=== PATIENT | female | born 1980 | race Caucasian/White ===

== ENCOUNTER 2024-09-14 10:16 | Outpatient (AMB) | payer OTHER, SELFPAY ==
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
[2024-09-14 10:42] VITALS: BP 139/80; PULSE 69; RESP 14; TEMP 36.3; O2SAT 99; BMI 32.1
== END 2024-09-14 11:12 | disposition home or self-care (01) ==
PROVIDERS: PCP Physician Assistant Medical; Visit Provider Physician Assistant
DX: R03.0 Elevated blood-pressure reading, without diagnosis of hypertension (principal); N63.12 Unspecified lump in the right breast, upper inner quadrant; J45.20 Mild intermittent asthma, uncomplicated

== ENCOUNTER → 2024-09-14 10:16 | Outpatient (BNVA) | payer OTHER, SELFPAY | PROVIDERS: PCP Physician Assistant Medical; Visit Provider Physician Assistant | DX: N63.12 Unspecified lump in the right breast, upper inner quadrant (principal); J45.20 Mild intermittent asthma, uncomplicated; R03.0 Elevated blood-pressure reading, without diagnosis of hypertension | CPT/HCPCS: 96127 ==

== ENCOUNTER 2024-09-19 07:31 | Outpatient (REF) | payer OTHER, SELFPAY ==
[2024-09-19 11:36] LABS: MANUAL DIFF FLAG NO
[2024-09-19 12:00] LABS: Basophils Absolute Auto 0.1 X10*3/uL (0.0-0.2); Basophils Percent Auto 0.8 % (0-2); Eosinophils Absolute Auto 0.6 X10*3/uL (0.0-0.4); Eosinophils Percent Auto 7.7 % (0-4); Hematocrit 37.6 % (37.0-47.0); Hemoglobin 12.6 g/dl (12.0-16.0); Imm Gran Abs Auto 0.04 X10*3/uL (0.00-0.03); Imm Gran Pct Auto 0.6 % (0.0-0.4); Lymphocytes Absolute Auto 1.6 X10*3/uL (1.2-4.9); Lymphocytes Percent Auto 21.9 % (20-40); Mean Corpuscular HGB Conc 33.5 g/dl (31.0-35.0); Mean Corpuscular Hemoglobin 31.4 pg (27.0-33.0); Mean Corpuscular Volume 93.8 fL (80.0-98.0); Monocytes Absolute Auto 0.5 X10*3/uL (0.1-1.2); Monocytes Percent Auto 7.5 % (2-11); Neutrophils Absolute Auto 4.5 x10*3/uL (2.0-8.3); Neutrophils Percent Auto 61.5 % (45-73); Platelet Count 367 X10*3/uL (160-400); Red Blood Count 4.01 X10*6/uL (4.20-5.50); Red Cell Distribution Width 12.9 % (11.0-16.0); White Blood Count 7.2 X10*3/uL (4.8-10.8)
[2024-09-19 12:40] LABS: Alanine Aminotransferase 29 U/L (0-31); Albumin Level 4.1 g/dL (3.5-5.0); Alkaline Phosphatase 55 U/L (39-117); Anion Gap 13 (12-20); Aspartate Amino Transferase 24 U/L (5-31); Bilirubin Total 0.4 mg/dL (0.0-1.0); Blood Urea Nitrogen 9 mg/dL (9-16); Calcium 9.4 mg/dL (8.4-10.2); Carbon Dioxide 28 mmol/L (22-29); Chloride 104 mmol/L (96-108); Cholesterol 234 mg/dL (<200); Estimated Glomerular Filt Rate > 60; Glucose Fasting 89 mg/dL (60-99); HDL Cholesterol 64 mg/dL (>40); LDL Cholesterol Calculated 148 mg/dL (<100); Potassium 4.1 mmol/L (3.3-5.1); Sodium 141 mmol/L (135-145); TSH reflex Free T4 2.35 uIU/mL (0.32-4.0); Total Protein 7.3 g/dL (6.5-8.0); Triglycerides 112 mg/dL (<150)
[2024-09-19 12:45] LABS: Folate 8.4 ng/mL (> or = 4.0); Vitamin B12 657 pg/mL (200-900)
== END 2024-09-19 07:32 | disposition home or self-care (01) ==
LOC: HO.WFDLDS 07:31
PROVIDERS: Visit Provider Physician Assistant
DX: R03.0 Elevated blood-pressure reading, without diagnosis of hypertension (principal); Z13.220 Encounter for screening for lipoid disorders; N63.10 Unspecified lump in the right breast, unspecified quadrant
CPT/HCPCS: 36415; 80053; 80061; 82607; 82746; 84443; 85025

== ENCOUNTER 2024-09-25 09:07 | Outpatient (REF) | payer OTHER, SELFPAY ==
--- NOTE | ~2024-09-25 | MM_ITS ---
EXAMINATION: MM DIAGNOSTIC DIGITAL BREAST TOMOSYNTHESIS, BILATERAL Limited right breast ultrasound. CLINICAL INFORMATION: Right breast palpable lump. COMPARISON: Mammography: Comparison is made with relevant prior exams. TECHNIQUE: Digital breast mammography with tomosynthesis is performed in both the craniocaudal and mediolateral oblique views along with computer-aided detection (CAD). Limited right breast ultrasound. FINDINGS: There are scattered areas of fibroglandular density (ACR BI-RADS breast composition Category b). Status post bilateral reduction mammoplasty changes. Palpable marker in the upper central breast far posterior depth without underlying abnormality. There are no significant masses, abnormal calcifications, or other abnormalities. Targeted color Doppler right breast ultrasound scanning from 10-2 o'clock demonstrates normal fibronodular breast tissue. At 1:00 12 cm from the nipple there is a superficial subcutaneous hypoechoic oval solid mass versus normal-appearing lymph node measuring approximately 9 x 3 x 6 mm. Results are provided to the patient at time of visit by the technologist. MM/MM tomosynthesis diagnostic BI IMPRESSION: Hypoechoic oval solid mass versus lymph node at 1:00 12 cm from the nipple correlating with the patient's palpable lump. Recommend 6 month follow-up ultrasound for further evaluation of stability. ASSESSMENT: BI-RADS BI-RADS 3 - Probably benign finding(s) - 6 month follow-up suggested RECOMMENDATION: 6 Month F/U This patient's information was entered into a reminder system with a target due date for their next mammogram. Electronically signed by: Cyndi Crenshaw DO 09/25/2024 10:42 AM [facility]
== END 2024-09-25 09:08 | disposition home or self-care (01) ==
LOC: HO.MAMMO 09:07
PROVIDERS: PCP Physician Assistant Medical; Visit Provider Physician Assistant
DX: N63.12 Unspecified lump in the right breast, upper inner quadrant (principal); R92.321 Mammographic fibroglandular density, right breast
CPT/HCPCS: 76642; 77062; 77066

== ENCOUNTER → 2024-09-25 09:45 | Outpatient (BNV) | payer OTHER, SELFPAY | PROVIDERS: PCP Physician Assistant Medical; Visit Provider Internal Medicine | DX: N63.12 Unspecified lump in the right breast, upper inner quadrant (principal) | CPT/HCPCS: 76642; 77062; 77066 ==

== ENCOUNTER 2024-10-19 09:11 | Outpatient (AMB) | payer OTHER, SELFPAY ==
--- NOTE | 2024-10-19 09:16 | MHC.PC.OV ---
Vital Signs 10/19/24 09:19 Height 5 ft 1 in Weight 166 lb 4 oz BMI 31.4 BP 138/76 Blood Pressure Location Rt brachial Position Sitting Respiration 13 Pulse 58 Pulse Source Pulse Oximeter Pulse Oximetry (%) 98 Oxygen Delivery Method Room Air Intake Visit Reasons: labs, recheck bp, breast Intake Note: follow up on labs, and blood pressure Motor Tune Up Specialist Required: No Allergies morphine Allergy (Severe, Verified 10/19/24 09:17) Hives polyethylene glycol [From Golytely] Allergy (Severe, Verified 10/19/24 09:17) Hives polyethylene glycol 3350 [From Golytely] Allergy (Severe, Verified 10/19/24 09:17) Hives potassium chloride [From Golytely] Allergy (Severe, Verified 10/19/24:17) Hives sodium [From Golytely] Allergy (Severe, Verified 10/19/24 09:17) Hives sodium bicarbonate [From Golytely] Allergy (Severe, Verified 10/19/24 09:17) Hives sodium chloride [From Golytely] Allergy (Severe, Verified 10/19/24 09:17) Hives sodium sulfate [From Golytely] Allergy (Severe, Verified 10/19/24 09:17) Hives Sulfa (Sulfonamide Antibiotics) Allergy (Severe, Verified 10/19/24 09:17) Hives Tobacco use date assessed: 09/14/24 Dental Screening Dental Screen Date: 09/14/24 HPI HPI Comments History of Present Illness Details The patient is a 44-year-old female presenting with follow-up for a right breast lump, elevated blood pressure and a physical exam is done today. The breast lump was initially identified as a palpable mass at 1 o'clock position, 12 cm from the nipple, during a breast ultrasound and diagnostic mammogram on September 25, 2024, which indicated a hypoechoic oval solid mass versus a lymph node. It was suspected to be a probable benign finding, and a repeat imaging with ultrasound was recommended in six months. The patient has experienced pain and throbbing sensations associated with the lump, especially during coughing or movement. Her history includes a torn right rotator cuff, not yet surgically treated, and prior cervical disc surgery with hardware placement around [id number]. The patient saw a breast specialist at [facility] who agreed with the imaging findings and follow up imaging in 6 months. We reviewed the patient labs today. She has mildly elevated LDL cholesterol at 148 mg/dL, triglycerides at 112 mg/dL, and HDL at 64 mg/dL , CBC with mild eosinophilia. She has a history of asthma and seasonal allergies. She is taking Claritin 10 mg daily. She has a consult scheduled with pulmonology. She had normal renal and liver functions, as well as vitamin B12 and thyroid function testing. Regarding elevated blood pressure, this is a new diagnosis with no previous history according to the patient. Possible contributing factors include weight fluctuation and recent increased stress levels. She reports a family history of hypertension from her father. Her father was in the hospital recently due to hyponatremia. He is an alcoholic. The patient has 2 teenage daughters are doing well. 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 She has lost 5 lb already with lifestyle modification. The patient is due for a colonoscopy. She would like to have a gastroenterology consult. She does get reflux sometimes, and in the past has done both endoscopy and colonoscopy at the same time. She also recalls a workup in the past for a possible ?liver abnormality that was seen on imaging. She saw Gastroenterology and underwent follow up studies including endoscopy, and it was determined to be a benign finding. She is having these records sent to the office. Patient is referred back to Gastroenterology. OBGYN: Dr. Ghislaine Allison. Patient was informed and verbally consented to the use of an ambient scribe for clinic note documentation during this visit. ROS: Constitutional: No unexplained weight loss, fever, chills, fatigue or night sweats. Eyes: No vision changes, blurry vision, double vision, eye pain, eye redness, eye discharge. ENT: No hearing loss, sneezing, congestion, runny nose or sore throat. Respiratory: No shortness of breath, cough or sputum production. Cardiovascular: No chest pain, chest pressure or chest discomfort. No palpitations or pedal edema. Gastrointestinal: No anorexia, nausea, vomiting or diarrhea. No abdominal pain or blood in stool. Genitourinary: No dysuria, hematuria, urinary frequency. Neurologic: No headache, dizziness, syncope, unilateral weakness, ataxia, numbness or tingling in the extremities. Musculoskeletal: No back pain or joint swelling Hematologic/Lymphatics: No bleeding or bruising. No painful lymph nodes. Skin: No rash or itching. Endocrine: No cold or heat intolerance. No polyuria or polydipsia. Psychiatric: No depression. No SI/HI. Physical exam: Constitutional: Alert, in no distress. Head: Normocephalic. Eyes: Pupils are equal, round and reactive to light. Extraocular muscles intact. Ear, Nose and Throat: Canals clear. TMs normal. Normal nasal mucosa. No nasal discharge. No oral lesions. Neck: Supple, Full range of motion. No lymphadenopathy. No palpable thyroid masses. Respiratory: Clear to auscultation. Cardiovascular: S1 S2 regular. No murmurs. No carotid bruits. Gastrointestinal: Abdomen soft, non-tender, non-distended. Normal bowel sounds. No palpable masses. Neurologic: No focal neurological deficits. Symmetric patellar reflexes. Moves all extremities spontaneously. Sensation intact bilaterally. Skin: No rash Musculoskeletal: No gross deformities. Normal range of motion. Extremities: Warm and well perfused. No clubbing, cyanosis or edema. 3+ peripheral pulses bilaterally. Psychiatric: Normal mood and affect [facility], [facility] Medical History (Updated 10/19/24 @ 11:21 by PATO Dickerson) Routine physical examination GERD (gastroesophageal reflux disease) Hypertension Anxiety Bacterial infection Fibroids Surgical History (Updated 10/19/24 @ 09:35 by PATO Dickerson) History of surgery History of neck surgery History of partial hysterectomy Hx of cholecystectomy History of appendectomy Hx of breast reduction, elective [place] teeth extracted Family History Mother Mental health disorder Substance abuse Cancer Thyroid disorder Hypertension Diabetes Asthma High cholesterol Father Substance abuse Hypertension High cholesterol Social History (Updated 09/14/24 @ 10:37 by Kristen Lerner MA) Household Members: Significant Other and Children Both parents involved: No Caregiver staying overnight: No Housing: House Are you a primary home health care social worker to a significant other at home: Yes Do you presently have visiting nurse or other home services: No 75 years or older and lives alone: No Alcohol intake: current Alcohol intake frequency: a few times a month Patient Tobacco Use Status: Never used Tobacco e-Cigarette/Vaping Use: Never Used Second Hand Smoke Exposure: Yes service: No Current occupational status: employed Current occupation: medical associate Cognitive needs: No Hearing needs: No Vision needs: Yes (wear glasses) Questionnaire PHQ-9 Over the last 2 weeks, how often have you been bothered by any of the following problems? 1. Little interest or pleasure in doing things: not at all 2. Feeling down, depressed, or hopeless: several days 3. Trouble falling or staying asleep, or sleeping too much: several days 4. Feeling tired or having little energy: several days 5. Poor appetite or overeating: not at all 6. Feeling bad about yourself - or that you are a failure or have let yourself or your family down: not at all 7. Trouble concentrating on things, such as reading the newspaper or watching television: not at all 8. Moving or speaking so slowly that other people could have noticed. Or the opposite - being so fidgety or restless that you have been moving around a lot more than usual: not at all 9. Thoughts that you would be better off or of hurting yourself in some way: not at all Total score: 3 Depression Screening Interpretation: Negative Depression Screening Done: Yes 35357 - PHQ-9 Billing: Yes Source: Developed by Drs. Jay Chris, Shana Carmona, Steffen Rich and colleagues, with an educational debbie from [employer]. Thrive Questionnaire Date Thrive assessed: 10/19/24 I am a: Patient What is your living situation today?: I have a steady place to live Within the past 12 months, did the food you bought not last and you didn't have the money to get more?: Never true Within the past 12 months, did you worry whether your food would run out before you got money to buy more?: Sometimes True Do you have trouble paying for medicines?: No Do you have trouble getting transportation to medical appointments?: No Do you have trouble paying your heating and electricity bill?: Yes Do you have trouble taking care of your child, family member or friend?: No Do you have trouble with day-to-day activities such as bathing, preparing meals, shopping, managing finances, etc.?: No Are you currently unemployed and looking for a job?: No Are you interested in more education?: No Please select the resources that you would like help with: Utilities Currently or been in a relationship where the following occur: No concerns reported THRIVE Score: 2 AUDIT C Alcohol Use Questionnaire (AUDIT-C) 1. How often do you have a drink containing alcohol?: Never 2. How many drinks containing alcohol do you have on a typical day when you are drinking?: 1 or 2 3. How often do you have six or more drinks on one occasion?: Never Total Score: 0 ELENA-7 AMB Questionnaire ELENA-7 Date ELENA - 7 assessed: 10/19/24 Feeling nervous, anxious, or on edge: 1 = Several days Not being able to stop or control worryin = Several days Worrying too much about different things: 1 = Several days Trouble relaxin = Several days Being so restless that it is hard to sit still: 1 = Several days Becoming easily annoyed or irritable: 1 = Several days Feeling afraid as if something awful might happen: 0 = Not at all Total ELENA-7 score (0-4 normal; 5-9 mild; 10-14 moderate; 15-21 severe): 6 Source: Developed by Drs. Jay Chris, Shana Carmona, Steffen Rich and colleagues, with an educational debbie from [employer]. ELENA-7 Assessment Billing ELENA-7 Assessment Tool: ELENA-7 Assessment 73984 Physical exam (Primary Care) Vital Signs: Last Vital Signs Pulse 58 10/19/24 09:19 Resp 13 10/19/24 09:19 BP 138/76 10/19/24 09:19 Pulse Ox 98 10/19/24 09:19 Oxygen Delivery Method Room Air 10/19/24 09:19 BMI result Body Mass Index 31.4 Tobacco/Smoking Status: Tobacco use Status Tobacco use date assessed 09/14/24 10/19/24 09:20 Patient Tobacco Use Status Never used Tobacco 10/19/24 09:20 e-Cigarette/Vaping Use Never Used 10/19/24 09:20 PHQ-9: PHQ-9 Score PHQ-9: Total score 3 10/19/24 09:20 Depression Screening Interpretation: Negative Thrive Assessment: Date of Thrive Assessment Date Thrive assessed 10/19/24 10/19/24 09:20 Currently or been in a relationship where the following occur: No concerns reported Coding Level of Care Code Est Pt Level 2 (33999) Est Pt Prev Care 40-64y(70934) Diagnoses Routine physical examination Z00.00 GERD (gastroesophageal reflux disease) K21.9 Mild intermittent asthma in adult without complication J45.20 Mass of upper inner quadrant of right breast N63.12 Breast mass location: upper inner quadrant Elevated blood pressure reading without diagnosis of hypertension R03.0 Additional Codes ELENA-7 Assessment Billing - ELENA-7 Assessment Tool: ELENA-7 Assessment 80091 ([id number]) PHQ-9 - 94087 - PHQ-9 Billing: Yes ([id number]) Assessment & Plan Assessment & Plan (1) Routine physical examination: Code(s): Z00.00 - Encounter for general adult medical examination without abnormal findings Category: Medical (2) GERD (gastroesophageal reflux disease): Code(s): K21.9 - Gastro-esophageal reflux disease without esophagitis Category: Medical (3) Mild intermittent asthma in adult without complication: Code(s): J45.20 - Mild intermittent asthma, uncomplicated Category: Medical (4) Lump of right breast: Code(s): N63.10 - Unspecified lump in the right breast, unspecified quadrant Category: Medical Qualifiers: Breast mass location: upper inner quadrant Qualified Code(s): N63.12 - Unspecified lump in the right breast, upper inner quadrant (5) Elevated blood pressure reading without diagnosis of hypertension: Code(s): R03.0 - Elevated blood-pressure reading, without diagnosis of hypertension Category: Medical Plan Patient is seen today for a routine physical. As part of this visit we reviewed the following issues, which are considered and essential part of preventative health in this age group: - Breast Cancer screening - Annual Microstrategy Bi Developer exam -scheduled in February - Screening for colon cancer -referred - Osteoporosis prevention including calcium/vitamin D intake, weight bearing exercise & smoking cessation - Nutritional and exercise counseling - Counseling of injury prevention including fire prevention, smoke alarms and seat belt usage - Screening for depression - Prevention of and/or testing for infectious diseases - Education about skin cancer - Recommendations about immunizations -declined tetanus immunization. Last tetanus in 2012. Patient advised she is overdue. - Recommendation of an eye exam 1. Right Breast Lump: A follow-up ultrasound is recommended in six months to evaluate the solid mass further. The patient is instructed to report if there is any increase in pain or changes in the lump characteristics. 2. Elevated blood pressure: Patient is advised to monitor blood pressure at home with a recommended blood pressure monitor. Lifestyle modifications were suggested: reduction in sodium intake, increased physical activity, control of stress levels, and follow-up in three months with labs to reassess blood pressure. 3. Hyperlipidemia: Encouraged to maintain a low-fat diet and continue lifestyle changes including monitoring cholesterol levels with repeat labs in three months. 4. Mild Intermittent Asthma: Consult scheduled with pulmonology. 5. Eosinophilia: Monitor in conjunction with eligibility consultant, suspect tied to patient's asthma and seasonal allergies. Repeat with next labs. Follow up in 3 months. Orders: Referrals Gastroenterology Referral K21.9 - Gastro-esophageal reflux disease without esophagitis, Z12.11 - Encounter for screening for malignant neoplasm of colon Medications: New blood pressure monitor As directed 1 ea 0RF R03.0 - Elevated blood-pressure reading, without diagnosis of hypertension
[2024-10-19 09:19] VITALS: BP 138/76; PULSE 58; RESP 13; O2SAT 98; BMI 31.4
== END 2024-10-19 10:00 | disposition home or self-care (01) ==
PROVIDERS: PCP Physician Assistant Medical; Visit Provider Physician Assistant Medical
DX: Z00.00 Encounter for general adult medical examination without abnormal findings (principal); K21.9 Gastro-esophageal reflux disease without esophagitis; J45.20 Mild intermittent asthma, uncomplicated; N63.12 Unspecified lump in the right breast, upper inner quadrant; R03.0 Elevated blood-pressure reading, without diagnosis of hypertension

== ENCOUNTER → 2024-10-19 09:11 | Outpatient (BNVA) | payer OTHER, SELFPAY | PROVIDERS: PCP Physician Assistant Medical; Visit Provider Physician Assistant Medical | DX: Z00.00 Encounter for general adult medical examination without abnormal findings (principal); K21.9 Gastro-esophageal reflux disease without esophagitis; J45.20 Mild intermittent asthma, uncomplicated; N63.12 Unspecified lump in the right breast, upper inner quadrant; R03.0 Elevated blood-pressure reading, without diagnosis of hypertension | CPT/HCPCS: 96127 ==

== ENCOUNTER 2024-10-31 10:23 | Outpatient (AMB) | payer OTHER, SELFPAY ==
[2024-10-31 10:27] VITALS: BP 132/74; PULSE 76; O2SAT 98; BMI 31.7
--- NOTE | 2024-10-31 10:27 | A.OFFVIS_ITS ---
Vital Signs 10/31/24 10:27 Height 5 ft 1 in Weight 168 lb BMI 31.7 BP 132/74 Blood Pressure Location Rt brachial Position Sitting Pulse 76 Pulse Source Pulse Oximeter Pulse Oximetry (%) 98 Oxygen Delivery Method Room Air Intake Visit Reasons: Asthma Communications Billing Analyst Required: No Accompanied by: Self / Same As Patient Allergies morphine Allergy (Severe, Verified 10/31/24 10:34) Hives polyethylene glycol [From Golytely] Allergy (Severe, Verified 10/31/24 10:34) Hives polyethylene glycol 3350 [From Golytely] Allergy (Severe, Verified 10/31/24 10:34) Hives potassium chloride [From Golytely] Allergy (Severe, Verified 10/31/24 10:34) Hives sodium [From Golytely] Allergy (Severe, Verified 10/31/24 10:34) Hives sodium bicarbonate [From Golytely] Allergy (Severe, Verified 10/31/24 10:34) Hives sodium chloride [From Golytely] Allergy (Severe, Verified 10/31/24 10:34) Hives sodium sulfate [From Golytely] Allergy (Severe, Verified 10/31/24 10:34) Hives Sulfa (Sulfonamide Antibiotics) Allergy (Severe, Verified 10/31/24 10:34) Hives Medication List - Last Reconciled 10/31/24 by Emily Avendano LPN blood pressure monitor As directed budesonide-formoterol 160-4.5 mcg/actuation (Symbicort) 2 inhalations inhalation BID loratadine (Claritin) 10 mg PO DAILY HPI HPI Asthma: Details: Marimar is a pleasnt 44 year old female, never smoker, with underlying asthma. She was referred by PCP for pulmonary evaluation. She was previously under the care of Pulmonary in [facility] however was lost to follow-up presents to reestablish care. She reports mild exercise-induced respiratory symptoms, diagnosed in her 20s. She has been using Symbicort 160 mcg p.r.n. with good effect. She notes that her symptoms are triggered with exercise as well as cold air. She also recently developed seasonal allergies this past fall, no recent allergy testing. She has been using Flonase and Claritin with moderate effect. She also notes multiple animals at home including cats, dogs, and a rabbit. She denies any occupational exposures. She reports mother, smoker, with COPD, otherwise no pertinent family history. She endorses significant second hand smoke exposure as a child and into adulthood. [facility] Medical History (Updated 10/31/24 @ 10:52 by Angela Kim NP) Routine physical examination GERD (gastroesophageal reflux disease) Hypertension Anxiety Bacterial infection Fibroids Surgical History (Updated 10/19/24 @ 09:35 by PATO Dickerson) History of surgery History of neck surgery History of partial hysterectomy Hx of cholecystectomy History of appendectomy Hx of breast reduction, elective [place] teeth extracted Family History Mother Mental health disorder Substance abuse Cancer Thyroid disorder Hypertension Diabetes Asthma High cholesterol Father Substance abuse Hypertension High cholesterol Social History (Updated 09/14/24 @ 10:37 by Kristen Lerner MA) Household Members: Significant Other and Children Housing: House Are you a primary medication care manager to a significant other at home: Yes Do you presently have visiting nurse or other home services: No Alcohol intake: current Alcohol intake frequency: a few times a month Patient Tobacco Use Status: Never used Tobacco e-Cigarette/Vaping Use: Never Used Second Hand Smoke Exposure: Yes service: No Current occupational status: employed Current occupation: medical and health services manager Cognitive needs: No Hearing needs: No Vision needs: Yes (wear glasses) Review of Systems Const Denies chills, Denies excessive sweating, Denies fever(s), Denies headache(s) and Denies night sweats Eyes Denies dry eyes, Denies irritation and Denies itchy eyes ENT Reports Normal hearing present, Denies headache(s), Denies nasal congestion, Denies nasal discharge, Denies post nasal drip and Denies sore throat Card Denies chest pain, Denies chest pain at rest, Denies chest pain with activity, Denies claudication, Denies leg edema, Denies dyspnea, Denies dyspnea on exertion, Denies orthopnea and Denies paroxysmal nocturnal dyspnea Resp Denies chest congestion, Denies cough, Denies excessive phlegm production, Denies pain on inspiration, Denies pain with cough, Denies dyspnea, Denies dyspnea on exertion, Denies stridor and Denies wheezing Musc Denies myalgias Neuro Reports Normal hearing present and Denies headache(s) Endo Denies excessive sweating Colten/Lymph Denies lymphadenopathy Aller/Immun Denies itchy eyes, Denies seasonal rhinorrhea and Denies wheezing Physical Exam Vital Signs: Last Vital Signs Pulse 76 10/31/24 10:27 BP 132/74 10/31/24 10:27 Pulse Ox 98 10/31/24 10:27 Oxygen Delivery Method Room Air 10/31/24 10:27 BMI result Body Mass Index 31.7 Const General: cooperative, healthy appearing, comfortable, no acute distress, well developed and alert Nutritional Appearance: obese Orientation/consciousness: patient oriented x3 Limitations: no limitations HEENT Head: Yes normal to inspection, Yes normocephalic and Yes atraumatic Ears: hearing grossly normal bilaterally and external ears normal Eyes General: appearance normal, both eyes and all related structures Eyelids: Yes eyelids normal Sclerae: sclerae normal EOM: EOMs intact bilaterally Neck Neck: Yes normal visual inspection and Yes no lymphadenopathy Lymphatic: no lymphadenopathy noted Chest Chest palpation & inspection: normal inspection of the chest Resp Effort & Inspection: normal respiratory effort, able to speak in complete sentences, no audible wheezes, no cough, no stridor, not tachypneic, no tripod positioning and no use of accessory muscles Auscultation: clear to auscultation bilaterally Cardio Jugular venous distension: no JVD Rate: regular rate Rhythm: regular rhythm Skin Other: warm, dry General skin exam: no rashes or lesions noted Neuro General: patient oriented x3 Cranial nerves: Yes Normal hearing present Cognition (Neuro): normal cognition Gait exam (Neuro): Normal gait present Extrem General: Yes normal to inspection, Yes capillary refill normal, Yes no clubbing, cyanosis or edema and Yes no pedal edema Psych Appearance: grossly normal and well kempt Speech and movement: Normal speech and movement present and Clear speech present Affect: normal affect Attitude: cooperative Thought process: Normal thought process present Thought content: Normal thought content present Insight: Good insight present (Psych) Judgement: Good judgement present (Psych) Assessment & Plan Assessment & Plan (1) Asthma: Code(s): J45.909 - Unspecified asthma, uncomplicated Category: Medical (2) Environmental allergies: Code(s): Z91.09 - Other allergy status, other than to drugs and biological substances Category: Medical Plan Marimar presents for pulmonary evaluation for known h/o asthma. At this time, she reports good control on Symbicort advised to continue. Will send for PFT and RAST to assess for an allergic component to symptoms. All questions were answered and patient is in agreement of plan. Will follow up to review results or sooner if needed. Orders: Orders PFT pulmonary function test 10/31/24 J45.909 - Unspecified asthma, uncomplicated Resp Allergy Profile Region I 10/31/24 Z91.09 - Other allergy status, other than to drugs and biological substances Immunoglobulin E 10/31/24 Z91.09 - Other allergy status, other than to drugs and biological substances Other Ref Test - Misc 10/31/24 Z91.09 - Other allergy status, other than to drugs and biological substances Coding Level of Care Code New Pt Level 4 (44283) Diagnoses Asthma J45.909 Environmental allergies Z91.09
--- OUTSIDE RECORDS SUMMARY | 2024-10-31 11:43 | XMS_ITS | Clinical Summary ---
Author Organization [facility] ity Address [address] [place] [address] Care Team Providers Care Sales Project Manager Name Role Phone Elsa Fontaine MD Primary Care Provider [phone] Allergies Active Allergy Reactions Criticality Noted Date Comments Morphine Sulfate Hives 11/01/2012 Peg 3350-Electrolytes Hives,Swelling 11/01/2012 Sulfa (Sulfonamide Antibiotics) Hives High /04/2008 Medications Medication Sig Dispensed Refills Start Date End Date Status MULTIVITAMIN ORAL MULTIVITAMIN MINERAL/BETA CAR TABS ?? OR 1 TABLET DAILY Active Active Problems Problem Noted Date Diagnosed Date Abnormal abdominal MRI 02/25/2023 Overview (09/26/2024): Splenic hemangioma to be followed q 6 months with GI Adrenal adenoma, left 02/08/2023 Chronic right lower quadrant pain 01/11/2019 PTSD (post-traumatic stress disorder) 03/03/2018 Carcinoma in situ of cervix uteri 04/03/2016 Overview (09/26/2024): 02/20/15 Pap HSIL, +HPV 03/21/15 Colpo WILIAM 1-2 06/07/15 LEEP WILIAM 2-3, +endo margin 04/03/16 Pap neg, neg hpv 04/30/17 Pap neg, neg hpv HTN (hypertension) 10/15/2014 Asthma, well controlled 07/06/2012 Pompholyx eczema 01/25/2012 Eosinophilia 02/09/2011 Sleep disorder 02/09/2011 Mixed hyperlipidemia 08/25/2010 Immunizations Name Administration Dates Next Due Hepatitis B (Rmguwks-T-Zteef , Recombivax HB-Adult) 19yo and older 06/05/2007,01/03/2007,02/14/2004,07/23,08/16/1997,07/23/1997 Influenza Quadravalent, MDCK , 0.5ml, preservative free (Flucelvax) 6mo and older 08/01/2019,09/21/2018 Influenza Quadravalent, MDCK , 0.5ml, with preservative (Flucelvax) 6mo and older 08/24/2017 Influenza trivalent, with pr eservative (Fluzone; Afluria) 6mo and older 07/11/2005,02/14/2004,07/11/2002,08/16 MMR, measles mumps and rubel la Live (Priorix; M-M-R II) 12mo and older 05/11/1992,01/10/1980 Pneumococcal polysaccharide 23 valent (Pneumovax 23) 2yo and older 03/29/2003,11/11/1991 Td Tetanus diptheria (Tdvax) 7yo and older 02/14/2003 Tdap Tetanus diptheria acell ular pertussis (Boostrix; Adacel) 7yo and older 02/10/2013 Varicella live (Varivax) 12m o and older 05/11/1991 Surgical History Surgery Date Site/Laterality Comments WISDOM TOOTH EXTRACTION PROCEDURE: HISTORICAL WISDOM TEETH EXTRACTION BREAST REDUCTION 12/2009 PROCEDURE: MD BREAST REDUCTION OTHER SURGICAL HISTORY 1291013 PROCEDURE: MD LAPS FULG/EXC OVARY VISCERA/PERITONEAL SURFACE; COMMENT: endometriosis - Dr Hugh Newell APPENDECTOMY [id number] PROCEDURE: HISTORICAL APPENDECTOMY CHOLECYSTECTOMY 01/2014 PROCEDURE: HISTORICAL CHOLECYSTECTOMY CERVICAL BIOPSY W/ LOOP ELECTRODE EXCISION 05/2015 PROCEDURE: MD CONIZATION CERVIX W/WO D&C RPR ELTRD EXC; COMMENT: wiliam 2-3, +endo margin NECK SURGERY 03/03/2017 PROCEDURE: HISTORICAL NECK SURGERY; COMMENT: c5-c6,c6-c7 anterior cervical disckectomy with allograft fusion c5-c6, c-6-c7 and anterior cervical plating using a Zevo plate Samantha Olivier [facility] ABDOMINAL SURGERY 02/17/2018 PROCEDURE: MD UNLISTED PROCEDURE ABDOMEN PERITONEUM & OMENTUM; COMMENT: Myomectomy, menorrhagia submucosal/intramural fibroid MYOMECTOMY 02/2018 PROCEDURE: MD LAPS MYOMECTOMY EXC 1-4 MYOMAS 250 GM/< LAPAROSCOPY DIAGNOSTIC / BIOPSY / ASPIRATION / LYSIS 2018 PROCEDURE: PELVIS LAPAROSCOPY, DIAGNOSTIC Medical History Medical History Date Comments Depression DX:Depression Bursitis of shoulder DX:Bursitis of shoulder; COMMENT: right, cortisone inj 2004 Arthralgia of temporomandibular joint DX:Arthralgia of temporomandibular joint Premenstrual tension syndromes D X:Premenstrual tension syndromes Internal hemorrhoids without mention of complication DX:Internal hemorrhoids with out mention of complication Dysmenorrhea DX:Dysmenorrhea; COMMENT: Treated with Mirena Dysphagia 01/12 DX:Dysphagia; CO MMENT: normal barium swallow Infectious mononucleosis DX:Infe ctious mononucleosis Urinary tract infection, sit e not specified DX:Urinary tract infection, site not specified Mixed hyperlipidemia 08/25/2010 DX:Mixed hy perlipidemia Endometriosis DX:Endometriosis ; COMMENT: diagnosed & treated by general surgery Family History Medical History Relation Name Comments Hypertension Father Diabetes Mother Hypertension Mother Other: Thyroid Cancer Mother's side aunt, with lymphatic spread Breast cancer Neg Hx Colon cancer Neg Hx Ovarian cancer Neg Hx Uterine cancer Neg Hx Relation Name Status Comments Brother Alive Daughter 1 Alive Daughter 2 Alive Father Alive htn, high deo sterol, ETOH Maternal Grandfather (Age 79) ki dney failure Maternal Grandmother (Age 79) da mensia, heart problems at 17, lumpectomy 8-9, alzheimers Mother Alive htn, anxiety, d epression, ETOH Mother's side Paternal Grandfather (Age 70's) alzheimers Paternal Grandmother (Age 80s) a lzhiemers Sister Alive Social History Tobacco Use Types Packs/Day Years Used Date Smoking Tobacco: Never Smokeless Tobacco: Never Alcohol Use Standard Drinks/Week Comments Yes 0.8 (1 standard drink = 0.6 oz p ure alcohol) Sex and Gender Information Value Date Recorded Sex Assigned at Not on file Gender Identity Not on file Sexual Orientation Not on file Obstetrics History Last Filed Vital Signs Vital Sign Reading Time Taken Comments Blood Pressure 122/72 05/06/2023 11:40 AM EDT Pulse 68 05/06/2023 11:40 AM EDT Temperature - - Respiratory Rate - - Oxygen Saturation - - Inhaled Oxygen Concentration - - Weight 70.3 kg (155 lb) 05/06/2023 11:40 AM EDT Height 154.9 cm (5' 1 ) 05/06/2023 11:40 AM EDT Body Mass Index 29.29 05/06/2023 11:40 AM EDT Plan of Treatment Health Maintenance Due Date Last Done Comments Pneumococcal Vaccine: Pediatrics (0 to 5 Years) and At-Risk Patients (6 to 64 Years) (2 of 2 - PCV) 03/29/2004 03/29/2003, 11/11/1991 Cervical Cancer Screening: Pap Smear 04/30/2020 04/30/2017, 04/30/2017 Colorectal Cancer Screening: Colonoscopy 09/19/2022 Depression Screening 09/19/2022 HIV Screening 09/19/2022 Hepatitis C Screening 09/19/2022 Social Influencers of Health Screening 09/19/2022 DTaP,Tdap,and Td Vaccines (3 - Td or Tdap) 02/10/2023 02/10/2013, 02/14/2003 Cholesterol Screening (Lipid Panel) 03/03/2023 03/03/2018 Hypertension/CHF/CAD Annual BMP Blood Test 05/06/2024 05/06/2023 COVID-19 Vaccine ( season) 2024 Influenza Vaccine (#1) 2024 9, 09/21/2018, 08/24/2017, Additional history exists Varicella Vaccines Aged Out 05/11/1991 No longer eligible based on patient's age to complete this topic MMR Vaccines Completed 05/11/1992, 01/10/1980 Hepatitis B Vaccines Completed 06/05/2007, 01/03/2007, 02/14/2004, Additional history exists HIB Vaccines Aged Out No longer eligi ble based on patient's age to complete this topic HPV Vaccines Aged Out No longer eligi ble based on patient's age to complete this topic Hepatitis A Vaccines Aged Out No long er eligible based on patient's age to complete this topic IPV Vaccines Aged Out No longer eligi ble based on patient's age to complete this topic Meningococcal ACWY Vaccine Aged Out N o longer eligible based on patient's age to complete this topic RSV Immunization Patients Under 20 months Aged Out No longer eligible based on patient's age to complete this topic Procedures Procedure Name Priority Date/Time Associated Diagnosis Comments HM ANNUAL BMP BLOOD TEST Routine 05/06/2023 LIPID PANEL Routine 03/03/2018 HPV Routine 04/30/2017 from Last 3 Months or Most Recently Relevant to Health Maintenance Results * Annual BMP Blood Test (05/06/2023) Pathologist [facility] Annual BMP Blood Test Abstracted Historical Provider MD GAETANO SANDOVAL E * (ABNORMAL) Lipid panel (03/03/2018) [facility] LDL/HDL Ratio 3 0 - 4 Triglycerides 89 0 - 150 mg/dL Cholesterol 233(A) 0 - 200 mg/dL HDL 67 40 mg/dL LDL Cholesterol 149(A) 0 - 100 mg/dL Blood Venous blood specimen / Unknown Historical Provider LAB BLOOD ORDERAB LES * Cervical Cancer Screening: HPV (04/30/2017) [facility] Cervical Cancer Screening: HPV No interpretation , abstracted Historical Provider MD GAETANO Manzano from Last 3 Months or Most Recently Relevant to Health Maintenance Advance Directives Documents on File Type Date Recorded Patient Aircraft Engine Technician Expl anation Health Care Decision (hx) 12/30/2017 AD CHOW DIRECTIVE Health Care Decision (hx) 12/30/2017 AD CHOW DIRECTIVE Health Care Decision (hx) 12/30/2017 AD CHOW DIRECTIVE Health Care Decision (hx) 12/30/2017 AD CHOW DIRECTIVE Health Care Decision (hx) 12/30/2017 AD CHOW DIRECTIVE Care Teams Sales Project Manager Relationship Specialty Start Date End Date Elsa Fontaine MD PCP - General Internal Medicine 06/17/22
== END 2024-10-31 11:03 | disposition home or self-care (01) ==
PROVIDERS: PCP Physician Assistant Medical; Referring Provider Physician Assistant; Visit Provider Nurse Practitioner Family
DX: J45.909 Unspecified asthma, uncomplicated (principal); Z91.09 Other allergy status, other than to drugs and biological substances
CPT/HCPCS: 99204

== ENCOUNTER 2024-10-31 11:15 | Outpatient (REF) | payer OTHER, SELFPAY ==
[2024-11-01 14:17] LABS: Class Alternaria alternata 0; Class Aspergillus fumigatus 0; Class Bermuda Grass 0; Class Birch 0; Class Cat Dander 2; Class Cladosporium herbarum 0/1; Class Cockroach 0; Class Common Ragweed 0; Class Cottonwood 0; Class Derm. pterony 0/1; Class Dermatophagoides farinae 0; Class Dog Dander 0; Class Elm 0; Class Maple Box Elder 0; Class Mountain Cedar 0/1; Class Mouse Urine Protein 0; Class Mugwort 0; Class Oak 0; Class Penicillium crysogenum 0; Class Rough Pigweed 0; Class Sheep Sorrel 0; Class Sycamore 0; Class Timothy Grass 0; Class Walnut Tree 0; Class White Ash 0; Class White Mulberry 0; D001 IgE D pteronyssinus 0.12 kU/L; D002 - IgE D farinae <0.10 kU/L; E001 - IgE Cat Dander 1.77 kU/L; E005 - IgE Dog Dander <0.10 kU/L; E072-IgE Mouse Urine <0.10 kU/L; G002 IgE Bermuda Grass <0.10 kU/L; G006 - IgE Timothy Grass <0.10 kU/L; I006-IgE Cockroach, German <0.10 kU/L; Immunoglobulin E 389 kU/L (<OR=114); Immunoglobulin E 411 kU/L (<OR=114); M001 IgE Penicillium chrysogen <0.10 kU/L; M002 - IgE Cladosporium herbar 0.16 kU/L; M003 - IgE Aspergillus fumigat <0.10 kU/L; M006 - IgE Alternaria alternat <0.10 kU/L; T001 IgE Maple/Box Elder <0.10 kU/L; T003 IgE Common Silver Birch <0.10 kU/L; T006 - IgE Cedar, Mountain 0.11 kU/L; T007 - IgE Oak, White <0.10 kU/L; T008 IgE Elm, American <0.10 kU/L; T010 - IgE Walnut <0.10 kU/L; T011 - IgE Maple Leaf Sycamore <0.10 kU/L; T014 - IgE Cottonwood <0.10 kU/L; T015 - IgE Ash, White <0.10 kU/L; T070 - IgE White Mulberry <0.10 kU/L; W001 - IgE Ragweed, Short <0.10 kU/L; W006 - IgE Mugwort <0.10 kU/L; W014 IgE Pigweed, Common <0.10 kU/L; W018 IgE Sheep Sorrel <0.10 kU/L
== END 2024-10-31 11:16 | disposition home or self-care (01) ==
LOC: HO.WFDLDS 11:15
PROVIDERS: Visit Provider Nurse Practitioner Family
DX: J45.909 Unspecified asthma, uncomplicated (principal); Z91.09 Other allergy status, other than to drugs and biological substances
CPT/HCPCS: 36415; 82785; 86003

== ENCOUNTER 2024-12-04 09:56 | Outpatient (AMB) | payer OTHER, SELFPAY ==
[2024-12-04 09:57] VITALS: BP 140/92; PULSE 78; O2SAT 98; BMI 31.8
--- NOTE | 2024-12-04 09:57 | A.OFFPC_ITS ---
Vital Signs 12/04/24 09:57 Height 5 ft 1 in Weight 168 lb 6 oz BMI 31.8 BP 140/92 H Blood Pressure Location Rt brachial Position Sitting Pulse 78 Pulse Source Pulse Oximeter Pulse Oximetry (%) 98 Oxygen Delivery Method Room Air Intake Visit Reasons: Lump in chest Allergies morphine Allergy (Severe, Verified 12/04/24 09:57) Hives polyethylene glycol [From Golytely] Allergy (Severe, Verified 12/04/24 09:57) Hives polyethylene glycol 3350 [From Golytely] Allergy (Severe, Verified 12/04/24 09:57) Hives potassium chloride [From Golytely] Allergy (Severe, Verified 12/04/24 09:57) Hives sodium [From Golytely] Allergy (Severe, Verified 12/04/24 09:57) Hives sodium bicarbonate [From Golytely] Allergy (Severe, Verified 12/04/24 09:57) Hives sodium chloride [From Golytely] Allergy (Severe, Verified 12/04/24 09:57) Hives sodium sulfate [From Golytely] Allergy (Severe, Verified 12/04/24 09:57) Hives Sulfa (Sulfonamide Antibiotics) Allergy (Severe, Verified 12/04/24 09:57) Hives Tobacco use date assessed: 12/04/24 Dental Screening Dental Screen Date: 12/04/24 Did you have a dental visit in the last 12 months?: Yes Did you have a dental problem in the last 6 months where you did not have access to dental care?: No Was dental information given to patient?: Patient has dentist HPI HPI Comments History of Present Illness Details The patient is a 44-year-old female with a past medical history of asthma presenting for a sick visit. She has been sick for the past week. Rapid COVID test at home was negative. She endorses sinus congestion, cough, wheezing, mild shortness of breath, fatigue, scratchy throat. Mucus is yellow. She has had low-grade fevers up to 100.2. Taking Symbicort. She does not have a rescue inhaler. Albuterol has made her very jittery in the past. Continues to endorse pain around the breast lump on the right side at the 1 o'clock position 12 cm from the nipple that was imaged in September of 2024 with diagnostic mammogram and breast ultrasound. It is a hypoechoic oval solid mass versus lymph node. Repeat imaging was recommended in 6 months. She experiences pain and throbbing sensations associated with a lump especially with coughing and movement. She saw a breast specialist at [facility] who agreed with the imaging findings. It is hurting more now because she has been coughing. ROS: Constitutional: See HPI. No chills or night sweats. Eyes: No vision changes, blurry vision, double vision, eye pain, eye redness, eye discharge. ENT: No ear pain, sore throat, see HPI Respiratory: No hemoptysis. See HPI. Cardiovascular: No chest pain Gastrointestinal: No anorexia, nausea, vomiting or diarrhea. No abdominal pain Neurologic: No headache, dizziness, syncope Musculoskeletal: No back pain Skin: No rash Physical exam: Constitutional: Alert, in no distress. Appears a little tired. Head: Normocephalic. Eyes: Pupils are equal, round and reactive to light. Extraocular muscles intact. Ear, Nose and Throat: Canals clear. TMs normal. Nasal mucosa erythematous, inferior turbinates 2+, yellow and clear discharge in the nostrils. Sinuses nontender. No erythema or exudates or swelling of the mouth or throat. Neck: Supple, Full range of motion. Mildly enlarged submandibular lymph nodes. Respiratory: Clear to auscultation. Chest: There is a palpable, nontender lump at the area of concern described in the HPI with no erythema or discoloration. Cardiovascular: S1 S2 regular. No murmurs. Extremities: Warm and well perfused. No clubbing, cyanosis or edema. [facility] Medical History (Updated 12/04/24 @ 13:52 by PATO Dickerson) URI (upper respiratory infection) Routine physical examination GERD (gastroesophageal reflux disease) Hypertension Anxiety Bacterial infection Fibroids Surgical History History of surgery History of neck surgery History of partial hysterectomy Hx of cholecystectomy History of appendectomy Hx of breast reduction, elective [place] teeth extracted Family History Mother Mental health disorder Substance abuse Cancer Thyroid disorder Hypertension Diabetes Asthma High cholesterol Father Substance abuse Hypertension High cholesterol Social History Household Members: Significant Other and Children Both parents involved: No Caregiver staying overnight: No Housing: House Are you a primary medicare contact specialist to a significant other at home: Yes Do you presently have visiting nurse or other home services: No 75 years or older and lives alone: No Alcohol intake: current Alcohol intake frequency: a few times a month Patient Tobacco Use Status: Never used Tobacco e-Cigarette/Vaping Use: Never Used Second Hand Smoke Exposure: Yes service: No Current occupational status: employed Current occupation: medical claims assistant Cognitive needs: No Hearing needs: No Vision needs: Yes (wear glasses) Questionnaire PHQ-9 Over the last 2 weeks, how often have you been bothered by any of the following problems? 1. Little interest or pleasure in doing things: not at all 2. Feeling down, depressed, or hopeless: several days 3. Trouble falling or staying asleep, or sleeping too much: several days 4. Feeling tired or having little energy: several days 5. Poor appetite or overeating: not at all 6. Feeling bad about yourself - or that you are a failure or have let yourself or your family down: not at all 7. Trouble concentrating on things, such as reading the newspaper or watching television: not at all 8. Moving or speaking so slowly that other people could have noticed. Or the opposite - being so fidgety or restless that you have been moving around a lot more than usual: not at all 9. Thoughts that you would be better off or of hurting yourself in some way: not at all Total score: 3 Depression Screening Interpretation: Negative Depression Screening Done: Yes 84552 - PHQ-9 Billing: Yes Source: Developed by Drs. Jay Chris, Shana Carmona, Steffen Rich and colleagues, with an educational debbie from [employer]. Thrive Questionnaire Date Thrive assessed: 12/04/24 I am a: Patient What is your living situation today?: I have a steady place to live Within the past 12 months, did the food you bought not last and you didn't have the money to get more?: Never true Within the past 12 months, did you worry whether your food would run out before you got money to buy more?: Sometimes True Do you have trouble paying for medicines?: No Do you have trouble getting transportation to medical appointments?: No Do you have trouble paying your heating and electricity bill?: Yes Do you have trouble taking care of your child, family member or friend?: No Do you have trouble with day-to-day activities such as bathing, preparing meals, shopping, managing finances, etc.?: No Are you currently unemployed and looking for a job?: No Are you interested in more education?: No Please select the resources that you would like help with: Utilities Currently or been in a relationship where the following occur: No concerns reported THRIVE Score: 2 AUDIT C Alcohol Use Questionnaire (AUDIT-C) 1. How often do you have a drink containing alcohol?: Never 2. How many drinks containing alcohol do you have on a typical day when you are drinking?: 1 or 2 3. How often do you have six or more drinks on one occasion?: Never Total Score: 0 ELENA-7 AMB Questionnaire ELENA-7 Date ELENA - 7 assessed: 10/19/24 Feeling nervous, anxious, or on edge: 1 = Several days Not being able to stop or control worryin = Several days Worrying too much about different things: 1 = Several days Trouble relaxin = Several days Being so restless that it is hard to sit still: 1 = Several days Becoming easily annoyed or irritable: 1 = Several days Feeling afraid as if something awful might happen: 0 = Not at all Total ELENA-7 score (0-4 normal; 5-9 mild; 10-14 moderate; 15-21 severe): 6 Source: Developed by Drs. Jay Chris, Shana Carmona, Steffen Rich and colleagues, with an educational debbie from [employer]. ELENA-7 Assessment Billing ELENA-7 Assessment Tool: ELENA-7 Assessment 44109 Physical exam (Primary Care) Vital Signs: Last Vital Signs Pulse 78 12/04/24 09:57 BP 140/92 H 12/04/24 09:57 Pulse Ox 98 12/04/24 09:57 Oxygen Delivery Method Room Air 12/04/24 09:57 BMI result Body Mass Index 31.8 Tobacco/Smoking Status: Tobacco use Status Tobacco use date assessed 12/04/24 12/04/24 10:02 Patient Tobacco Use Status Never used Tobacco 12/04/24 10:02 e-Cigarette/Vaping Use Never Used 12/04/24 10:02 PHQ-9: PHQ-9 Score PHQ-9: Total score 3 12/04/24 10:20 Depression Screening Interpretation: Negative Thrive Assessment: Date of Thrive Assessment Date Thrive assessed 12/04/24 12/04/24 10:02 Currently or been in a relationship where the following occur: No concerns reported Coding Level of Care Code Est Pt Level 4 (30063) Complex EM visit Add On G2211 Diagnoses Asthma J45.909 Mass of upper inner quadrant of right breast N63.12 Breast mass location: upper inner quadrant URI (upper respiratory infection) J06.9 Additional Codes ELENA-7 Assessment Billing - ELENA-7 Assessment Tool: ELENA-7 Assessment 21020 ([id number]) PHQ-9 - 30568 - PHQ-9 Billing: Yes ([id number]) Assessment & Plan Assessment & Plan (1) Asthma: Code(s): J45.909 - Unspecified asthma, uncomplicated Category: Medical (2) Lump of right breast: Code(s): N63.10 - Unspecified lump in the right breast, unspecified quadrant Category: Medical Qualifiers: Breast mass location: upper inner quadrant Qualified Code(s): N63.12 - Unspecified lump in the right breast, upper inner quadrant (3) URI (upper respiratory infection): Code(s): J06.9 - Acute upper respiratory infection, unspecified Category: Medical Plan Patient is advised to contact her breast specialist regarding painful breast lump. Even if it is benign like a fibroadenoma or cyst it may need to be removed due to the patient's discomfort. She agreed. We discussed her URI symptoms. Rapid COVID was negative at home. Discussed swabbing for influenza/RSV-patient deferred as it will not jacquard loom card changer at this time. She is taking Symbicort. She does not have a rescue inhaler. I sent albuterol with a note that if insurance covers Xopenex they do not need to fill the albuterol. She may need a prior authorization for Xopenex. Defer prednisone at this time since she is not wheezing, and her vitals are normal. Would have a low threshold for this if symptoms do not start to improve over the next 48 hours. Patient agreed to message me if this is the case. Warning signs warranting ER evaluation reviewed. Recommended cool mist humidifier, nasal saline spray, Vicks. Patient will also start a course of azithromycin (reviewed daily meds, this does not contain peg, and she has tolerated azithromycin in the past). Recommended probiotic and yogurt with antibiotics. Call if symptoms do not improve in 48 hours. Medications: New levalbuterol tartrate 45 mcg/actuation (Xopenex HFA) 2 inhalations inhalation Q4H PRN 15 grams 0RF cough, wheezing or shortness of breath albuterol sulfate 90 mcg/actuation 2 inhalations inhalation .every 4 hours 30 days PRN 8.5 grams 0RF shortness of breath or wheezing azithromycin For 250 mg dose pack: take 500 mg today (day 1), then 250 mg for 4 days (days 2-5) PO 6 tabs 0RF
--- OUTSIDE RECORDS SUMMARY | 2024-12-04 10:59 | XMS_ITS | Encounter Summary ---
Author Organization [facility] Address [address] [place] [address] Care Team Providers Care Programming Manager Name Role Phone Fatmata Handy MD Primary Care Provider Un available Elsa Fontaine MD Primary Care Provider [phone] Encounter Details Date Type Department Care Team Description 04/15/2015 Pt. Non Urgent Medical Question DIGITAL SALES MANAGER - [address] [address] Ghislaine Ramírez MD Social History Tobacco Use Types Packs/Day Years Used Date Smoking Tobacco: Never Smokeless Tobacco: Never Alcohol Use Standard Drinks/Week Comments Yes 0.8 (1 standard drink = 0.6 oz p ure alcohol) very rare. Sex Assigned at Date Recorded Not on file Job Start Date Occupation Industry Not on file Not on file Not on file documented as of this encounter Progress Notes * Gely Corral R.N. - 04/15/2015 2:35 PM EDTFrom: Marimar Granger To: Ghislaine Ramírez MD Sent: 04/15/2015 2:31 PM EDT Subject: Pain I'm still having daily pain in my pelvic area. I'm using a heat pad and taking ibuprofen, daily. Isthat normal? documented in this encounter Plan of Treatment Not on file documented as of this encounter Visit Diagnoses Not on filedocumented in this encounter Care Teams Programming Manager Relationship Specialty Start Date End Date Fatmata Handy MD PCP - General 01/09/01 06/16/22 Elsa Fontaine MD [address] [place] [address] PCP - General Internal Medicine 06/17/22 documented as of this encounter
--- OUTSIDE RECORDS SUMMARY | 2024-12-04 10:59 | XMS_ITS | Encounter Summary ---
Author Organization [facility] Address [address] [place] [address] Care Team Providers Care Auto Camp Attendant Name Role Phone Fatmata Handy MD Primary Care Provider Un available Elsa Fontaine MD Primary Care Provider [phone] Encounter Details Date Type Department Care Team Description 01/03/2019 Pt. Non Urgent Medic al Question Medicine/Pediatrics - [address] [id number] Marie Odell PA-C Social History Tobacco Use Types Packs/Day Years Used Date Smoking Tobacco: Never Smokeless Tobacco: Never Alcohol Use Standard Drinks/Week Comments Yes 0.8 (1 standard drink = 0.6 oz p ure alcohol) very rare. Sex Assigned at Date Recorded Not on file Job Start Date Occupation Industry Not on file Not on file Not on file documented as of this encounter Progress Notes * Evelyn Solis L.P.N. - 01/03/2019 12:59 PM EDTFrom: Marimar Shubham To: Marie Odell PA-C Sent: 01/03/2019 12:26 PM EDT Subject: Response to X-ray Thank you Marie. No change in my symptoms. Still in pain, still tired. The purplish/red lines on my upper thighs are still there. I am taking daily pictures to document progress of them. Not itchy, not raised. It almost looks like my veins. I repeated the urine test & had blood drawn this morning. No urinary pain, no burning. documented in this encounter Plan of Treatment Not on file documented as of this encounter Visit Diagnoses Not on filedocumented in this encounter Care Teams Auto Camp Attendant Relationship Specialty Start Date End Date Fatmata Handy MD PCP - General 01/09/01 06/16/22 Elsa Fontaine MD [address] [place] [id number] PCP - General Internal Medicine 06/17/22 documented as of this encounter
--- OUTSIDE RECORDS SUMMARY | 2024-12-04 10:59 | XMS_ITS | Encounter Summary ---
Author Organization [facility] Address [address] [place] [address] Care Team Providers Care Travel Ot Name Role Phone Fatmata Handy MD Primary Care Provider Un available Elsa Fontaine MD Primary Care Provider [phone] Encounter Details Date Type Department Care Team Description 03/20/2020 Pt. Non Urgent Medical Question General Surgery [address] [place] [address] Duy Cullen MD [address] [place] [id number] Social History Tobacco Use Types Packs/Day Years Used Date Smoking Tobacco: Never Smokeless Tobacco: Never Alcohol Use Standard Drinks/Week Comments Yes 0.8 (1 standard drink = 0.6 oz p ure alcohol) occ Sex Assigned at Date Recorded Not on file Job Start Date Occupation Industry Not on file Not on file Not on file documented as of this encounter Progress Notes * Tessa Gale C.M.A. - 03/20/2020 2:00 PM EDTFrom: Marimar Jalloh To: Duy Cullen MD Sent: 03/20/2020 11:01 AM EDT Subject: Incision bleeding Good morning. I woke up this morning with some red blood stained into my underwear where the incision is. I had my mother look at it and she did notice 2 scabs. I have a pad covering the area now and there is a little more bleeding, not much or an alarming amount. Just making sure this is normal. documented in this encounter Plan of Treatment Not on file documented as of this encounter Visit Diagnoses Not on filedocumented in this encounter Care Teams Travel Ot Relationship Specialty Start Date End Date Fatmata Handy MD PCP - General 01/09/01 06/16/22 Elsa Fontaine MD [address] [place] [id number] PCP - General Internal Medicine 06/17/22 documented as of this encounter
--- OUTSIDE RECORDS SUMMARY | 2024-12-04 10:59 | XMS_ITS | Encounter Summary ---
Author Organization [facility] Address [address] [place] [address] Care Team Providers Care Nutritional Yeast Supervisor Name Role Phone Ftamata Handy MD Primary Care Provider Un available Elsa Fontaine MD Primary Care Provider [phone] Encounter Details Date Type Department Care Team Description 06/30/2010 Night Triage Doc Medical Records [address] [place] [address] Abstract, Provider Social History Tobacco Use Types Packs/Day Years Used Date Smoking Tobacco: Never Alcohol Use Standard Drinks/Week Comments Not Asked 0 (1 standard drink = 0.6 oz pur e alcohol) Sex Assigned at Date Recorded Not on file Job Start Date Occupation Industry Not on file Not on file Not on file documented as of this encounter Plan of Treatment Not on file documented as of this encounter Visit Diagnoses Not on filedocumented in this encounter Care Teams Nutritional Yeast Supervisor Relationship Specialty Start Date End Date Fatmata Handy MD PCP - General 01/09/01 06/16/22 Elsa Fontaine MD [address] [place] [address] [id number] PCP - General Internal Medicine 06/17/22 documented as of this encounter
--- OUTSIDE RECORDS SUMMARY | 2024-12-04 10:59 | XMS_ITS | Encounter Summary ---
Author Organization [facility] Address [address] [place] [address] Care Team Providers Care Reliability Engineer Name Role Phone Fatmata Handy MD Primary Care Provider Un available Elsa Fontaine MD Primary Care Provider [phone] Encounter Details Date Type Department Care Team Description 08/26/2015 Dean Of Instruction Report Medical Records [address] [place] [address] Ricky Jauregui MD Social History Tobacco Use Types Packs/Day [...] on filedocumented in this encounter Care Teams Reliability Engineer Relationship Specialty Start Date End Date Fatmata Handy MD PCP - General 01/09/01 06/16/22 Elsa Fontaine MD [address] [place] [address] [phone] PCP - General Internal Medicine 06/17/22 documented as of this encounter
--- OUTSIDE RECORDS SUMMARY | 2024-12-04 10:59 | XMS_ITS | Clinical Summary ---
Author Organization [facility] Address [address] [place] [address] Care Team Providers Care Shear Operator Helper Name Role Phone Elsa Fontaine MD Primary Care Provider [phone] Allergies Active Allergy Reactions Criticality Noted Date Comments Morphine Sulfate Hives 11/01/2012 Peg 3350-Electrolytes Hives,Swelling 11/01/2012 Sulfa (Sulfonamide Antibiotics) Hives High /0 04/2008 Medications MULTIVITAMIN ORAL MULTIVITAMIN MINERAL/BETA CAR TABS ?? [...] Name Administration Dates Next Due Hepatitis B ([id number] , Recombivax HB-Adult) 19yo and older 06/05/2007,01/03/2007,02/14/2004,07/23,08/16/1997,07/23/1997 [...] WISDOM TEETH EXTRACTION BREAST REDUCTION 12/2009 PROCEDURE: CO BREAST REDUCTION OTHER SURGICAL HISTORY 1291013 PROCEDURE: CO LAPS FULG/EXC OVARY VISCERA/PERITONEAL SURFACE; COMMENT: endometriosis - Dr Hugh Newell APPENDECTOMY [id number] PROCEDURE: HISTORICAL APPENDECTOMY CHOLECYSTECTOMY 01/2014 PROCEDURE: HISTORICAL CHOLECYSTECTOMY CERVICAL BIOPSY W/ LOOP ELECTRODE EXCISION 05/2015 PROCEDURE: CO CONIZATION CERVIX W/WO D&C RPR ELTRD EXC; COMMENT: wiliam 2-3, +endo margin NECK SURGERY 03/03/2017 PROCEDURE: HISTORICAL NECK SURGERY; COMMENT: c5-c6,c6-c7 anterior cervical disckectomy with allograft fusion c5-c6, c-6-c7 and anterior cervical plating using a Zevo plate Samantha Olivier [facility] ABDOMINAL SURGERY 02/17/2018 PROCEDURE: CO UNLISTED PROCEDURE ABDOMEN PERITONEUM & OMENTUM; COMMENT: Myomectomy, menorrhagia submucosal/intramural fibroid MYOMECTOMY 02/2018 PROCEDURE: CO LAPS MYOMECTOMY EXC 1-4 MYOMAS 250 GM/< [...] drink = 0.6 oz p ure alcohol) Comments Unknown Sex and Gender Information Value Date Recorded Sex Assigned at Not on file Legal Sex Female 10:14 AM EST Gender Identity Not on file Sexual Orientation [...] Blood Test 05/06/2024 05/06/2023 COVID-19 Vaccine ( - season) 2024 Influenza Vaccine (#1) 2024 9, [...] patient's age to complete this topic Meningococcal B Vacine Aged Out No lo nger eligible based on patient's age to complete this topic RSV Immunization Patients Under 20 months Aged Out No longer eligible based on patient's age to complete this topic Procedures Procedure Name Priority Date/Time Associated Diagnosis Comments ANNUAL BMP BLOOD TEST Routine 05/06/2023 LIPID PANEL Routine 03/03/2018 HPV Routine 04/30/2017 from Last 3 Months or Most Recently Relevant to Health Maintenance Results * Annual BMP Blood Test (05/06/2023) Pathologist [facility] Annual BMP Blood Test Abstracted [facility] Provider HEALTH MAINTENANCE Final Result * (ABNORMAL) Lipid panel (03/03/2018) [facility] LDL/HDL Ratio 3 0 - 4 Triglycerides 89 0 - 150 mg/dL Cholesterol 233(A) 0 - 200 mg/dL HDL 67 >=40 mg/dL LDL Cholesterol 149(A) 0 - 100 mg/dL Blood Venous blood specimen / Unknown [facility] Provider LAB BLOOD ORDERABLES Lucinda l Result * Cervical Cancer Screening: HPV (04/30/2017) [facility] Cervical Cancer Screening: HPV No interpretation , abstracted [facility] Provider HEALTH MAINTENANCE Final Result from Last 3 Months or Most Recently Relevant to Health Maintenance Advance Directives Documents on File Type Date Recorded Patient Sand Shoveler Expl anation Health Care Decision (hx) 12/30/2017 AD CHOW DIRECTIVE Health Care Decision (hx) 12/30/2017 AD CHOW DIRECTIVE Health Care Decision (hx) 12/30/2017 AD CHOW DIRECTIVE Health Care Decision (hx) 12/30/2017 AD CHOW DIRECTIVE Health Care Decision (hx) 12/30/2017 AD CHOW DIRECTIVE Care Teams Shear Operator Helper Relationship Specialty Start Date End Date Elsa Fontaine MD PCP - General Internal Medicine 06/17/22
--- OUTSIDE RECORDS SUMMARY | 2024-12-04 10:59 | XMS_ITS | Encounter Summary ---
Author Organization [facility] Address [address] [place] [address] Care Team Providers Care Date Pitter Name Role Phone Fatmata Handy MD Primary Care Provider Un available Elsa Fontaine MD Primary Care Provider [phone] Encounter Details Date Type Department Care Team Description 10/01/2020 Communications Department Head Report Medical Records [address] [place] [address] Malvin Hood MD Social History Tobacco Use Types Packs/Day [...] on filedocumented in this encounter Care Teams Date Pitter Relationship Specialty Start Date End Date Fatmata Handy MD PCP - General 01/09/01 06/16/22 Elsa Fontaine MD [address] [place] [phone] PCP - General Internal Medicine 06/17/22 documented as of this encounter
--- OUTSIDE RECORDS SUMMARY | 2024-12-04 10:59 | XMS_ITS | Encounter Summary ---
Author Organization [facility] Address [address] [place] [address] Care Team Providers Care Rehabilitation Center Manager Name Role Phone Fatmata Handy MD Primary Care Provider Un available Elsa Fontaine MD Primary Care Provider [phone] Encounter Details Date Type Department Care Team Description 11/18/2015 Orders Only Medicine/Pediatrics - [address] [phone] Edgardo Ely PA-C Social History Tobacco Use Types Packs/Day [...] on filedocumented in this encounter Care Teams Rehabilitation Center Manager Relationship Specialty Start Date End Date Fatmata Handy MD PCP - General 01/09/01 06/16/22 Elsa Fontaine MD [address] [place] [phone] PCP - General Internal Medicine 06/17/22 documented as of this encounter
--- OUTSIDE RECORDS SUMMARY | 2024-12-04 10:59 | XMS_ITS | Encounter Summary ---
Author Organization [facility] Address [address] [place] [address] Care Team Providers Care Film Coater Name Role Phone Fatmata Handy MD Primary Care Provider Un available Elsa Fontaine MD Primary Care Provider [phone] Reason for Visit * Reason Onset Date Comments Abnormal Mammogram 05/26/2016 Encounter Details Date Type Department Care Team Description 05/26/2016 Telephone Radiology - [address] [address] Radiology, Authorizing Abnormal Mammogram Social History Tobacco Use Types Packs/Day Years Used Date Smoking Tobacco: Never Smokeless Tobacco: Never Alcohol Use Standard Drinks/Week Comments Yes 0.8 (1 standard drink = 0.6 oz p ure alcohol) very rare. Sex Assigned at Date Recorded Not on file Job Start Date Occupation Industry Not on file Not on file Not on file documented as of this encounter Miscellaneous Notes * Telephone Encounter - Flaquita Charles - 07/01/2016 10:44 AM EDT Sent certified letter out on 07/01/16 * Telephone Encounter - Flaquita Charles - 06/02/2016 1:29 PM EDT Fernández again on 06/02/16 * Telephone Encounter - Flaquita Charles - 05/26/2016 10:47 AM EDT Fernández to call back to resched her f/u appt 05/26/16 bw documented in this encounter Plan of Treatment Not on file documented as of this encounter Visit Diagnoses Not on filedocumented in this encounter Care Teams Film Coater Relationship Specialty Start Date End Date Fatmata Handy MD PCP - General 01/09/01 06/16/22 Elsa Fontaine MD [address] [place] [phone] PCP - General Internal Medicine 06/17/22 documented as of this encounter
--- OUTSIDE RECORDS SUMMARY | 2024-12-04 10:59 | XMS_ITS | Encounter Summary ---
Author Organization [facility] Address [address] [place] [address] Care Team Providers Care Cracking Machine Operator Name Role Phone Fatmata Handy MD Primary Care Provider Un available Elsa Fontaine MD Primary Care Provider [phone] Encounter Details Date Type Department Care Team Description 02/24/2021 Pt. Non Urgent Medical Question [place] [address] Annika Guillen CNM [address] [place] [address] Social History Tobacco Use Types Packs/Day Years Used Date Smoking Tobacco: Never Smokeless Tobacco: Never Alcohol Use Standard Drinks/Week Comments Yes 0.8 (1 standard drink = 0.6 oz p ure alcohol) occ Sex Assigned at Date Recorded Not on file Job Start Date Occupation Industry Not on file Not on file Not on file COVID-19 Exposure Response Date Recorded In the last month, have you been in contact with someone who was confirmed or suspected to have Coronavirus / COVID-19? No / Unsure 02/25/2021 10:40 AM EDT documented as of this encounter Miscellaneous Notes * Telephone Encounter - Gely Corral R.N. - 02/24/2021 11:47 AM EDTFrom: Marimar Jalloh To: Annika Guillen CNM Sent: 02/24/2021 11:45 AM EDT Subject: Upcoming appointment 02/27 Good morning. I called and was scheduled for an appointment for . Can I please be put on a cancellation list? I? m uncomfortable and concerned about my symptoms with my past history of CIN3 & HPV, as wellas a family history of breast and thyroid cancer. -blue dots/spots on vulva -discoloration -constant painful ulcer that has lasted 3 weeks currently -ulcer sometimes bleeds (blood on underwear liner) I had a partial hysterectomy so it???s not menstrual. Thank you documented in this encounter Plan of Treatment Not on file documented as of this encounter Visit Diagnoses Not on filedocumented in this encounter Care Teams Cracking Machine Operator Relationship Specialty Start Date End Date Fatmata Handy MD PCP - General 01/09/01 06/16/22 Elsa Fontaine MD [address] [place] [id number] PCP - General Internal Medicine 06/17/22 documented as of this encounter
--- OUTSIDE RECORDS SUMMARY | 2024-12-04 10:59 | XMS_ITS | Encounter Summary ---
Author Organization [facility] Address [address] [place] [address] Care Team Providers Care Radiology Physician Name Role Phone Fatmata Handy MD Primary Care Provider Un available Elsa Fontaine MD Primary Care Provider [phone] Encounter Details Date Type Department Care Team Description 05/13/2019 Hospital Medical Records [address] [place] [address] Devyn French MD Social History Tobacco Use Types Packs/Day [...] on filedocumented in this encounter Care Teams Radiology Physician Relationship Specialty Start Date End Date Fatmata Handy MD PCP - General 01/09/01 06/16/22 Elsa Fontaine MD [address] [place] [id number] PCP - General Internal Medicine 06/17/22 documented as of this encounter
--- OUTSIDE RECORDS SUMMARY | 2024-12-04 10:59 | XMS_ITS | Encounter Summary ---
Author Organization [facility] Address [address] [place] [address] Care Team Providers Care Poultry Farm Worker Name Role Phone Elsa Fontaine MD Primary Care Provider [phone] Encounter Details Date Type Department Care Team Description 04/15/2023 Electron Tube Assembler Report Medical Records [address] [place] [address] Malvin Hood MD Social History Tobacco Use [...] on filedocumented in this encounter Care Teams Poultry Farm Worker Relationship Specialty Start Date End Date Elsa Fontaine MD [address] [place] [address] PCP - General Internal Medicine 06/17/22 documented as of this encounter
--- OUTSIDE RECORDS SUMMARY | 2024-12-04 10:59 | XMS_ITS | Encounter Summary ---
Author Organization [facility] Address [address] [place] [address] Care Team Providers Care Veterinary Hospital Attendant Name Role Phone Fatmata Handy MD Primary Care Provider Un available Elsa Fontaine MD Primary Care Provider [phone] Encounter Details Date Type Department Care Team Description 01/03/2016 Pt. Non Urgent Medical Question SYSTEM SUPPORT SPECIALIST - [address] [address] Ghislaine Ramírez MD Social History Tobacco Use [...] Progress Notes * Gely Corral R.N. - 01/06/2016 9:52 AM EDTFrom: Marimar Granger To: Ghislaine Ramírez MD Sent: 01/03/2016 3:49 PM EDT Subject: IUD question Sorry so late in the day, especially on a weekend. I've had the IUD almost a year now. This week I've been spotting. But it is odd. It started Wednesday,but light enough to only use panty liner. Then Wednesday I had nothing. Wednesday it was a brownish color. Wednesday nothing at all, all day. nothing. Today some mild cramps and blood in urine. I've had nausea all week, before and after i eat; worse after eating typically. I'm hoping this is normal to spot like this; & the nausea is more related to some post nasal drip I have. But I just want to get an opinion first. Thank you :) documented in this encounter Plan of Treatment Not on file documented as of this encounter Visit Diagnoses Not on filedocumented in this encounter Care Teams Veterinary Hospital Attendant Relationship Specialty Start Date End Date Fatmata Handy MD PCP - General 01/09/01 06/16/22 Elsa Fontaine MD [address] [place] [phone] PCP - General Internal Medicine 06/17/22 documented as of this encounter
--- OUTSIDE RECORDS SUMMARY | 2024-12-04 10:59 | XMS_ITS | Encounter Summary ---
Author Organization [facility] Address [address] [place] [address] Care Team Providers Care Staffing Analyst Name Role Phone Fatmata Handy MD Primary Care Provider Un available Elsa Fontaine MD Primary Care Provider [phone] Encounter Details Date Type Department Care Team Description 02/12/2022 X Ray Developing Machine Operator Report Medical Records [address] [place] [address] Malvin Hood MD Social History Tobacco Use [...] on filedocumented in this encounter Care Teams Staffing Analyst Relationship Specialty Start Date End Date Fatmata Handy MD PCP - General 01/09/01 06/16/22 Elsa Fontaine MD [address] [place] [address] [phone] PCP - General Internal Medicine 06/17/22 documented as of this encounter
--- OUTSIDE RECORDS SUMMARY | 2024-12-04 10:59 | XMS_ITS | Encounter Summary ---
Author Organization [facility] Address [address] [place] [address] Care Team Providers Care Tool Design Drafter Name Role Phone Fatmata Handy MD Primary Care Provider Un available Elsa Fontaine MD Primary Care Provider [phone] Encounter Details Date Type Department Care Team Description 12/26/2018 Transfer Records Medical Records [address] Social History Tobacco Use Types Packs/Day Years [...] on filedocumented in this encounter Care Teams Tool Design Drafter Relationship Specialty Start Date End Date Fatmata Handy MD PCP - General 01/09/01 06/16/22 Elsa Fontaine MD [address] [place] [id number] PCP - General Internal Medicine 06/17/22 documented as of this encounter
--- OUTSIDE RECORDS SUMMARY | 2024-12-04 10:59 | XMS_ITS | Encounter Summary ---
Author Organization [facility] Address [address] [place] [address] Care Team Providers Care Preschool Teacher Assistant Name Role Phone Fatmata Handy MD Primary Care Provider Un available Elsa Fontaine MD Primary Care Provider [phone] Encounter Details Date Type Department Care Team Description 11/14/2015 Orders Only Medicine/Pediatrics - [address] [phone] Edgardo Ely PA-C Cervical radiculopathy (Primary Dx) Social History Tobacco Use Types Packs/Day Years [...] on file documented as of this encounter Results * X-RAY EXAM OF NECK SPINE, 4+ VIEWS (11/18/2015 12:29 PM EST) 11/18/2015 3:35 PM EST Narrative [facility] OTHER EXTERNAL - 11/18/2015 3:36 PM EST Cervical spine, 4 views. History neck pain. There is straightening of the usual cervical lordosis probably due to muscle spasm. There is narrowing of the disc space at C5-6 level. There is osteophytic narrowing of the right C6 and C7 neural foramina and left C6 neural foramen. There is no fractures, dislocations or destructive lesions. Conclusions: Muscle spasm. Degenerative changes as described. Procedure Note Kim Early MD - 11/18/2015 Cervical spine, 4 views. History neck pain. There is straightening of the usual cervical lordosis probably due tomuscle spasm. There is narrowing of the disc space at C5-6 level. There is osteophytic narrowingof the right C6 and C7 neural foramina and left C6 neural foramen. There is no fractures,dislocations or destructive lesions. Conclusions: Muscle spasm. Degenerative changes as described. Edgardo Ely PA-C RADIOLOGY Performing Organization Address [facility] de Phone Number [facility] OTHER EXTERNAL * X-RAY EXAM OF SHOULDER, COMPLETE (11/18/2015 12:29 PM EST) 11/18/2015 3:35 PM EST Impressions [facility] OTHER EXTERNAL - 11/18/2015 3:35 PM EST IMPRESSION: Minimal degenerative changes in the a.c. joint. Narrative [facility] OTHER EXTERNAL - 11/18/2015 3:35 PM EST Right shoulder. HISTORY: ??Pain. COMMENT: 4 views. There minimal degenerative changes in the a.c. joint. There is no fractures, dislocations or abnormal soft tissue calcifications. Procedure Note Kim Eraly MD - 11/18/2015 Right shoulder. HISTORY: Pain. COMMENT: 4 views. There minimal degenerative changes in the a.c. joint.There is no fractures, dislocations or abnormal soft tissue calcifications. IMPRESSION: Minimal degenerative changes in the a.c. joint. Edgardo Ely PA-C RADIOLOGY Performing Organization Address [facility] de Phone Number [facility] OTHER EXTERNAL documented in this encounter Visit Diagnoses Diagnosis Cervical radiculopathy- Primary Brachial neuritis or radiculitis nos Cervical radiculopathy Brachial neuritis or radiculitis nos Cervical radiculopathy Brachial neuritis or radiculitis nos documented in this encounter Care Teams Preschool Teacher Assistant Relationship Specialty Start Date End Date Fatmata Handy MD PCP - General 01/09/01 06/16/22 Elsa Fontaine MD [address] [place] [id number] PCP - General Internal Medicine 06/17/22 documented as of this encounter
--- OUTSIDE RECORDS SUMMARY | 2024-12-04 10:59 | XMS_ITS | Encounter Summary ---
Author Organization [facility] Address [address] [place] [address] Care Team Providers Care Ironmolder Name Role Phone Elsa Fontaine MD Primary Care Provider [phone] Reason for Visit * Reason Onset Date Comments radiology 02/24/2023 Encounter Details Date Type Department Care Team Description 02/24/2023 Telephone MRI - [address] [address] Kayla Tenorio DScPAS radiology Social History Tobacco Use Types Packs/Day Years Used Date Smoking Tobacco: Never Smokeless Tobacco: Never Alcohol Use Standard Drinks/Week Comments Yes 0.8 (1 standard drink = 0.6 oz p ure alcohol) occ Sex Assigned at Date Recorded Not on file Job Start Date Occupation Industry Not on file Not on file Not on file COVID-19 Exposure Response Date Recorded In the last 10 days, have yo u been in contact with someone who was confirmed or suspected to have Coronavirus/COVID-19? No / Unsure 02/17/2023 2:39 PM EDT documented as of this encounter Miscellaneous Notes * Telephone Encounter - Karen Sykes - 02/24/2023 12:34 PM EDT Good afternoon, We have faxed report and sent images via [facility] to [facility] for this patient as requested. If youneed anything futher feel free you give me a call [phone]. Thank you, Chantel Mri Department [facility] documented in this encounter Plan of Treatment Not on file documented as of this encounter Visit Diagnoses Not on filedocumented in this encounter Care Teams Ironmolder Relationship Specialty Start Date End Date Elsa Fontaine MD [address] [place] [id number] PCP - General Internal Medicine 06/17/22 documented as of this encounter
--- OUTSIDE RECORDS SUMMARY | 2024-12-04 10:59 | XMS_ITS | Encounter Summary ---
Author Organization [facility] Address [address] [place] [address] Care Team Providers Care Ethologist Name Role Phone Elsa Fontaine MD Primary Care Provider [phone] Reason for Referral * EXTERNAL (Urgent) - Authorized/Booked Specialty Diagnoses / Procedures Referred By Carlos linares Referred To Contact Oncology/Hematology Procedures REFERRAL TO ONCOLOGY/HEMATOLOGY (IN NETWORK) Elsa Fontaine MD [address] [place] [address] [place], [facility] [address] [place] [address] Referral ID Status Reason Start Date Expiration Date V isits Requested Visits Authorized Authorized/B ooked 02/05/2023 05/07/2023 1 1 * Non SCARLETT (Urgent) - Authorized/Booked Specialty Diagnoses / Procedures Referred By Carlos linares Referred To Contact Gastroenterology Procedures REFERRAL TO GASTROENTEROLOGY Elsa Fontaine MD [address] [place] [address] G[facility]/[address] [facility] [address] [place] [address] Referral ID Status Reason Start Date Expiration Date V isits Requested Visits Authorized Authorized/B ooked 02/05/2023 02/05/2024 1 1 Reason for Visit * Reason Onset Date Comments TEST RESULTS 02/05/2023 Encounter Details Date Type Department Care Team Description 02/05/2023 Telephone Adult [facility] [address] [place], [place] [phone] Elsa Fontaine MD [address] [place], [place] [phone] TEST RESULTS Social History Tobacco Use Types Packs/Day Years [...] suspected to have Coronavirus/COVID-19? No / Unsure 02/02/2023 2:25 PM EDT documented as of this encounter Miscellaneous Notes * Telephone Encounter - Elsa Fontaine MD - 02/05/2023 12:35 PM EDT I discussed the results of the MRI findings with the patient via phone call. 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 Patient has been referred to gastroenterology and hematology/oncology on an urgent basis. I have also ordered repeat CMP and CBC. * Telephone Encounter - Daryl Lindo - 02/05/2023 9:02 AM EDT Will send to PCPKailash out of office. * Telephone Encounter - Chapito Lord - 02/05/2023 8:51 AM EDT Inform patient: ANY URGENT OR ABNORMAL RESULTS WIILL RESULT IN A CALL BACK TO THE PATIENT BJ. Type of test: :MRI ABD W/WO CONTRAST Date test was performed: 02/02/23 Where was the test performed: [facility] Who ordered this test?: Elliot Is the doctor here today?: YES Can the message wait until the doctor returns?: YES IF PATIENT'S PCP IS NOT IN INSTRUCT PATIENT THAT THEY WILL RECEIVE A CALL BACK WHEN THE PCP IS IN THE OFFICE NEXT. documented in this encounter Plan of Treatment Not on file documented as of this encounter Results * CHG BLOOD COUNT COMPLETE AUTO&AUTO DIFRNTL WBC (02/17/2023 3:21 PM EDT) WHITE BLOOD COUNT 6.4 4.8 - 10.8 x10-3/uL 02/17/2023 6:34 PM EDT [facility] RED BLOOD COUNT 4.1 3.8 - 4.8 x10-6/uL 02/17/2023 6:34 PM EDT [facility] Hemoglobin 12.6 11.5 - 16.0 g/dL 02/17/2023 6:34 PM EDT [facility] Hematocrit 38.6 35 - 47 % 02/17/2023 6:34 PM EDT [facility] MEAN CORPUSCULAR VOLUME 94.6 79 - 98 fL 02/17/2023 6:34 PM EDT [facility] MEAN CORPUSCULAR HEMOGLOBIN 30.9 27 - 32 pg 02/17/2023 6:34 PM EDT [facility] MEAN CORPUSCULAR HGB CONC 32.6 32 - 37 g/dL 02/17/2023 6:34 PM EDT [facility] RED CELL DISTRIBUTION WIDTH 11.9 11 - 15 % 02/17/2023 6:34 PM EDT [facility] PLT COUNT 381 130 - 400 x10-3/uL 02/17/2023 6:34 PM EDT [facility] MEAN PLATELET VOLUME 10.1 7 - 11 fL 02/17/2023 6:34 PM EDT [facility] NRBC % AUTO 0.0 <1 % 02/17/2023 6:34 PM EDT [facility] NEUTROPHILS % 55.4 % 02/17/2023 6:34 PM EDT [facility] LYMPH % 33.0 % 02/17/2023 6:34 PM EDT [facility] MONO % 9.0 % 02/17/2023 6:34 PM EDT [facility] EOS % 1.7 % 02/17/2023 6:34 PM EDT [facility] BASO % 0.6 % 02/17/2023 6:34 PM EDT [facility] IMMATURE GRANULOCYTES % 0.3 % 02/17/2023 6:34 PM EDT [facility] NRBC # AUTO 0.00 <0.1 x10-3/uL 02/17/2023 6:34 PM EDT [facility] NEUT # 3.52 1.5 - 7.0 x10-3/uL 02/17/2023 6:34 PM EDT [facility] LYMPH # 2.10 1 - 5.0 x10-3/uL 02/17/2023 6:34 PM EDT [facility] MONO # 0.57 0.2 - 1.0 x10-3/uL 02/17/2023 6:34 PM EDT [facility] EOS # 0.11 0 - 0.5 x10-3/uL 02/17/2023 6:34 PM EDT [facility] BASO # 0.04 0 - 0.2 x10-3/uL 02/17/2023 6:34 PM EDT [facility] IMMATURE GRANULOCYTES # 0.02 0 - 0.03 x10-3/uL 02/17/2023 6:34 PM EDT [facility] 02/17/2023 3:21 PM EDT 02/17/2023 3:21 PM EDT Narrative [facility] - 02/17/2023 6:34 PM EDT Release to patient->Immediate Elsa Fontaine MD LAB [facility] * CHG COMPREHENSIVE METABOLIC PANEL (02/17/2023 3:21 PM EDT) [facility] GLUCOSE 76 70 - 100 mg/dL 02/17/2023 7:49 PM EDT [facility] Comment:Reference range appl icable to fasting specimens only Blood Urea Nitrogen 12 5 - 25 mg/dL 02/17/2023 7:49 PM EDT [facility] CREAT 0.56 0.5 - 1.1 mg/dL 02/17/2023 7:49 PM EDT [facility] GLOMERULAR FILTRATION RATE 116 >60 02/17/2023 7:49 PM EDT [facility] Comment: This eGFR result was calculated using the CKD-EPI 2020 Creatinine Equation NA 139 135 - 145 mEq/L 02/17/2023 7:49 PM EDT [facility] K 4.0 3.5 - 5.5 mmol/L 02/17/2023 7:49 PM EDT [facility] CL 104 96 - 110 mmol/L 02/17/2023 7:49 PM EDT [facility] CARBON DIOXIDE (CO2) 28 21 - 32 mmol/L 02/17/2023 7:49 PM EDT [facility] ANION GAP 7 3 - 11 02/17/2023 7:49 PM EDT [facility] CALCIUM 9.4 8.5 - 10.5 mg/dL 02/17/2023 7:49 PM EDT [facility] TOTAL PROTEIN (TP) 7.6 6.0 - 8.0 G/dL 02/17/2023 7:49 PM EDT [facility] Albumin 4.1 3.2 - 5.0 G/dL 02/17/2023 7:49 PM EDT [facility] BILIRUBIN TOTAL 0.3 0.0 - 1.4 mg/dL 02/17/2023 7:49 PM EDT [facility] SGOT 17 10 - 42 U/L 02/17/2023 7:49 PM EDT [facility] SGPT 24 10 - 60 U/L 02/17/2023 7:49 PM EDT [facility] ALK PHOS 60 42 - 121 U/L 02/17/2023 7:49 PM EDT [facility] 02/17/2023 3:21 PM EDT 02/17/2023 3:21 PM EDT Narrative [facility] - 02/17/2023 7:49 PM EDT Release to patient->Immediate Elsa Fontaine MD LAB [facility] documented in this encounter Visit Diagnoses Diagnosis Abnormal MRI- Primary Other nonspecific (abnormal) findings on radiological and other examinations of body structure documented in this encounter Care Teams Ethologist Relationship Specialty Start Date End Date Elsa Fontaine MD [address] [place] [id number] PCP - General Internal Medicine 06/17/22 documented as of this encounter
--- OUTSIDE RECORDS SUMMARY | 2024-12-04 10:59 | XMS_ITS | Encounter Summary ---
Author Organization [facility] Address [address] [place] [address] Care Team Providers Care Manager Lean Name Role Phone Fatmata Handy MD Primary Care Provider Un available Elsa Fontaine MD Primary Care Provider [phone] Encounter Details Date Type Department Care Team Description 12/28/2018 Pt. Non Urgent Medic al Question Medicine/Pediatrics - [address] [phone] Marie Odell PA-C Social History Tobacco Use [...] Progress Notes * Evelyn Solis L.P.N. - 12/28/2018 10:36 AM EDTFrom: Marimar Jalloh To: Marie Odell PA-C Sent: 12/28/2018 10:35 AM EDT Subject: Test results Good morning. I am just checking to see if the results of the urine test are back. Done in [facility] Wednesday the . I am still having the pain. Sleeping slightly better with the medicine you prescribed. documented in this encounter Plan of Treatment Not on file documented as of this encounter Visit Diagnoses Not on filedocumented in this encounter Care Teams Manager Lean Relationship Specialty Start Date End Date Fatmata Handy MD PCP - General 01/09/01 06/16/22 Elsa Fontaine MD [address] [place] [address] PCP - General Internal Medicine 06/17/22 documented as of this encounter
--- OUTSIDE RECORDS SUMMARY | 2024-12-04 10:59 | XMS_ITS | Encounter Summary ---
Author Organization [facility] Address [address] [place] [address] Care Team Providers Care Assistant Credit Manager Name Role Phone Fatmata Handy MD Primary Care Provider Un available Elsa Fontaine MD Primary Care Provider [phone] Encounter Details Date Type Department Care Team Description 05/13/2019 Hospital Medical Records [address] [place] [address] Aliyah Ly Social History Tobacco Use Types Packs/Day Years [...] on filedocumented in this encounter Care Teams Assistant Credit Manager Relationship Specialty Start Date End Date Fatmata Handy MD PCP - General 01/09/01 06/16/22 Elsa Fontaine MD [address] [place] [address] PCP - General Internal Medicine 06/17/22 documented as of this encounter
--- OUTSIDE RECORDS SUMMARY | 2024-12-04 10:59 | XMS_ITS | Encounter Summary ---
Author Organization [facility] Address [address] [place] [address] Care Team Providers Care Radiology Administrator Name Role Phone Fatmata Handy MD Primary Care Provider Un available Elsa Fontaine MD Primary Care Provider [phone] Encounter Details Date Type Department Care Team Description 12/29/2018 Pt. Non Urgent Medic al Question Medicine/Pediatrics - [address] [phone] Marie Odell PA-C Social History Tobacco Use [...] Progress Notes * Evelyn Solis L.P.N. - 12/29/2018 9:40 AM EDTFrom: Marimar Jalloh To: Marie Odell PA-C Sent: 12/29/2018 9:30 AM EDT Subject: Question regarding URINALYSIS I have a question about URINALYSIS resulted on 12/26/18, 2:10 PM. So I see a lot of high levels & mucus. Does this mean UTI? Or is there something else going on? It does not hurt to urinate at all. I feel no pressure to pee. No burning. No frequency. I have hadmultiple UTIs in the past so I'm not sure why I have not felt this. I've also had 2 kidney infections, & I'm not experiencing the flank pain I usually do with those. documented in this encounter Plan of Treatment Not on file documented as of this encounter Visit Diagnoses Not on filedocumented in this encounter Care Teams Radiology Administrator Relationship Specialty Start Date End Date Fatmata Handy MD PCP - General 01/09/01 06/16/22 Elsa Fontaine MD [address] [place] [address] PCP - General Internal Medicine 06/17/22 documented as of this encounter
--- OUTSIDE RECORDS SUMMARY | 2024-12-04 10:59 | XMS_ITS | Encounter Summary ---
Author Organization [facility] Address [address] [place] [address] Care Team Providers Care Operations Forester Name Role Phone Fatmata Handy MD Primary Care Provider Un available Elsa Fontaine MD Primary Care Provider [phone] Encounter Details Date Type Department Care Team Description 11/22/2018 Pt. Non Urgent Medic al Question Medicine/Pediatrics - [address] [phone] Zuhair Garcia PA-C Social History Tobacco Use Types Packs/Day [...] as of this encounter Progress Notes * Adelaide Chu M.A. - 11/22/2018 11:16 AM ESTFrom: Marimar Jalloh To: Zuhair Garcia PA-C Sent: 11/22/2018 11:15 AM EST Subject: TOBACCO SIZER appt today Due to the weather, I won't be able to drive out there. Can I cancel and reschedule somewhere else this week? I'm sorry, it's just not safe to drive out that far with my children. I'd prefer [place] or [place]. Thank you. documented in this encounter Plan of Treatment Not on file documented as of this encounter Visit Diagnoses Not on filedocumented in this encounter Care Teams Operations Forester Relationship Specialty Start Date End Date Fatmata Handy MD PCP - General 01/09/01 06/16/22 Elsa Fontaine MD [address] [place] [address] PCP - General Internal Medicine 06/17/22 documented as of this encounter
--- OUTSIDE RECORDS SUMMARY | 2024-12-04 11:00 | XMS_ITS | Encounter Summary ---
Author Organization [facility] Address [address] [place] [address] Care Team Providers Care Child Care Teacher Name Role Phone Fatmata Handy MD Primary Care Provider Un available Elsa Fontaine MD Primary Care Provider [phone] Encounter Details Date Type Department Care Team Description 02/20/2020 Telephone General Surgery - [address] [place] [phone] Duy Cullen MD [address] [place] [address] Social History Tobacco Use Types Packs/Day Years [...] encounter Miscellaneous Notes * Telephone Encounter - Arely Aburto - 03/01/2020 8:35 AM EDT Talked to pt- she is working from home so anytime this afternoon is good for her- she states the pain is still there and is bad- shes taking ibruprofen and tylenol alternating- also using ice and a heating pad- says it only starts to feel better when shes lying on her back in bed with a heating pad. Scheduled her an audio for today at 130pm at the * Telephone Encounter - Duy Cullen MD - 02/29/2020 1:49 PM EDT Please set up audio visit for her tomorrow.ibuprofen can probably tqlk sometime in early after noon * Telephone Encounter - Marguerite Aguirre - 02/29/2020 11:51 AM EDT Pt called again stating that there is no change, still in extreme pain and is anticipating a returnphone call. Please advise. * Telephone Encounter - Anai Chawla - 02/26/2020 11:08 AM EDT Pt called states she is still in a lot of pain in her right groin area. * Telephone Encounter - Mercy Hughes M.A. - 02/20/2020 10:02 AM EDT Spoke with Marimar, she has feeling back in her leg, but the pain in her lower abdomen is still there the same as before. documented in this encounter Plan of Treatment Not on file documented as of this encounter Visit Diagnoses Not on filedocumented in this encounter Care Teams Child Care Teacher Relationship Specialty Start Date End Date Fatmata Handy MD PCP - General 01/09/01 06/16/22 Elsa Fontaine MD [address] [place] [address] PCP - General Internal Medicine 06/17/22 documented as of this encounter
--- OUTSIDE RECORDS SUMMARY | 2024-12-04 11:00 | XMS_ITS | Encounter Summary ---
Author Organization [facility] Address [facility] [place] [address] Care Team Providers Care Rustic Fence Builder Name Role Phone Fatmata Handy MD Primary Care Provider Un available Elsa Fontaine MD Primary Care Provider [phone] Encounter Details Date Type Department Care Team Description 12/14/2017 Telephone OBGYN - [address] [phone] Sierra Navarrete DO Social History Tobacco Use Types Packs/Day Years [...] encounter Miscellaneous Notes * Telephone Encounter - Selma Ruth - 12/17/2017 2:29 PM EST Robotic myomectomy has been scheduled on 02/08/2018 at [facility] with Dr. Navarrete. Patient has been notified by phone and a letter has been sent to her. MD calendar has been updated and schedulers have been notified. Forward [facility] report. AM * Telephone Encounter - Sierra Navarrete DO - 12/14/2017 11:26 AM EST [employer] 12/14/2017 Patient's Name: Marimar Jalloh : 1980 Payor information: Payor: [facility] / Plan: HMO $0 [employer] / Product Type: HMO Iuz-vds-Dykawnu Allergies: Allergies Allergen Reactions ??? Sulfa Drugs Hives/Urticaria ??? Golytely [Colyte With Flavor] Hives/Urticaria and Swelling/Edema ??? Morphine Sulfate (Pf) Hives/Urticaria LMP: No LMP recorded. Patient is not currently having periods (Reason: IUD- uncertain date). Diagnosis: Menorrhgia, firboid Surgery Procedure Planned: robotic myomectomy Special Instructions/Equipment needed: Type of Anesthesia: gen Stay: Daystay Location:[facility] Wiring Inspector Needed? YES, Jarrell Time Needed: 2 Urgency: elective Medicaid Sterilization (within 30 days - 180 days) and/or Medicare HI-1 form signed, if needed? N\ADate signed? Medical Clearance? NO Pre Op TYRE RETREADER visit: YES Pap Needed at Pre Op Visit? NO No orders of the defined types were placed in this encounter. documented in this encounter Plan of Treatment Not on file documented as of this encounter Visit Diagnoses Not on filedocumented in this encounter Care Teams Rustic Fence Builder Relationship Specialty Start Date End Date Fatmata Handy MD PCP - General 01/09/01 06/16/22 Elsa Fontaine MD [address] [place] [address] PCP - General Internal Medicine 06/17/22 documented as of this encounter
--- OUTSIDE RECORDS SUMMARY | 2024-12-04 11:00 | XMS_ITS | Encounter Summary ---
Author Organization [facility] Address [address] [place] [address] Care Team Providers Care Salvage Laborer Name Role Phone Fatmata Handy MD Primary Care Provider Un available Elsa Fontaine MD Primary Care Provider [phone] Encounter Details Date Type Department Care Team Description 01/05/2013 Hospital Medical Records [address] [place] [address] Migel Calderón MD Social History Tobacco Use Types Packs/Day [...] on filedocumented in this encounter Care Teams Salvage Laborer Relationship Specialty Start Date End Date Fatmata Handy MD PCP - General 01/09/01 06/16/22 Elsa Fontaine MD [address] [place] [address] PCP - General Internal Medicine 06/17/22 documented as of this encounter
--- OUTSIDE RECORDS SUMMARY | 2024-12-04 11:00 | XMS_ITS | Encounter Summary ---
Author Organization [facility] Address [address] [place] [address] Care Team Providers Care Security Associate Name Role Phone Fatmata Handy MD Primary Care Provider Un available Elsa Fontaine MD Primary Care Provider [phone] Encounter Details Date Type Department Care Team Description 11/10/2012 Hospital Medical Records [address] [place] [address] Earlene López Social History Tobacco Use Types Packs/Day Years [...] on filedocumented in this encounter Care Teams Security Associate Relationship Specialty Start Date End Date Fatmata Handy MD PCP - General 01/09/01 06/16/22 Elsa Fontaine MD [address] [place] [address] PCP - General Internal Medicine 06/17/22 documented as of this encounter
--- OUTSIDE RECORDS SUMMARY | 2024-12-04 11:00 | XMS_ITS | Encounter Summary ---
Author Organization [facility] Address [address] [place] [address] Care Team Providers Care Lift Operator Name Role Phone Fatmata Handy MD Primary Care Provider Un available Elsa Fontaine MD Primary Care Provider [phone] Encounter Details Date Type Department Care Team Description 11/02/2012 Hospital Medical Records [address] [place] [address] Duy Ellison MD Social History Tobacco Use Types Packs/Day [...] on filedocumented in this encounter Care Teams Lift Operator Relationship Specialty Start Date End Date Fatmata Handy MD PCP - General 01/09/01 06/16/22 Elsa Fontaine MD [address] [place] [id number] PCP - General Internal Medicine 06/17/22 documented as of this encounter
--- OUTSIDE RECORDS SUMMARY | 2024-12-04 11:00 | XMS_ITS | Encounter Summary ---
Author Organization [facility] Address [address] [place] [address] Care Team Providers Care Assistant Corporate Controller Name Role Phone Fatmata Handy MD Primary Care Provider Un available Elsa Fontaine MD Primary Care Provider [phone] Encounter Details Date Type Department Care Team Description 06/12/2013 Night Triage Doc Medical Records [address] [place] [address] Abstract, Provider Social History Tobacco Use Types [...] filedocumented in this encounter Care Teams Assistant Corporate Controller Relationship Specialty Start Date End Date Fatmata Handy MD PCP - General 01/09/01 06/16/22 Elsa Fnotaine MD [address] [place] [address] PCP - General Internal Medicine 06/17/22 documented as of this encounter
--- OUTSIDE RECORDS SUMMARY | 2024-12-04 11:00 | XMS_ITS | Encounter Summary ---
Author Organization [facility] Address [address] [place] [address] Care Team Providers Care Spar Machine Operator Helper Name Role Phone Fatmata Handy MD Primary Care Provider Un available Elsa Fontaine MD Primary Care Provider [phone] Encounter Details Date Type Department Care Team Description 04/10/2021 Pt. Non Urgent Medic al Question Medicine/Pediatrics - [address] [phone] Fatmata Handy MD Social History Tobacco Use Types Packs/Day [...] encounter Miscellaneous Notes * Telephone Encounter - Evelyn Solis L.P.N. - 04/11/2021 8:48 AM EDTFrom: Marimar Jalloh To: Natacha Handy Sent: 04/10/2021 6:11 PM EDT Subject: Covid vaccine Good evening, [facility] When [facility] asked for my allergies, I stated that I was allergic to the go-lytely preparation. They stated that I could not receive the Pfizer or the Moderna, only the J&J. Is this correct? Thank you, Marimar documented in this encounter Plan of Treatment Not on file documented as of this encounter Visit Diagnoses Not on filedocumented in this encounter Care Teams Spar Machine Operator Helper Relationship Specialty Start Date End Date Fatmata Handy MD PCP - General 01/09/01 06/16/22 Elsa Fontaine MD [address] [place] [address] PCP - General Internal Medicine 06/17/22 documented as of this encounter
--- OUTSIDE RECORDS SUMMARY | 2024-12-04 11:00 | XMS_ITS | Encounter Summary ---
Author Organization [facility] Address [address] [place] [address] Care Team Providers Care Air Defense Control Officer Name Role Phone Fatmata Handy MD Primary Care Provider Un available Elsa Fontaine MD Primary Care Provider [phone] Encounter Details Date Type Department Care Team Description 02/10/2018 Pt. Non Urgent Medic al Question OBGYN - [place] [address] [place] [address] Sierra Navarrete DO Social History Tobacco Use [...] as of this encounter Progress Notes * Justine Bird L.P.NSanna - 02/10/2018 1:41 PM EDTFrom: Marimar Shubham To: Sierra Navarrete DO Sent: 02/10/2018 1:21 PM EDT Subject: New surgery date Good afternoon. I don't mean to be a pain and I'm sorry. I have not gotten a call with a new surgery date yet. I left a message for Selma yesterday around 12:30 and still have not gotten a call back. This daily pain is not working well for me and now with the heat I can't use my heating pad. I'm taking a 600mg ibuprofen twice a day and Tylenol isn't touching it. I have a claim for short term disability open, so I need to let the company know the new date as well as my work and my ex so he can help with the kids. I also have a planned vacation in at I want to be well enough for. Thank you, Marimar documented in this encounter Plan of Treatment Not on file documented as of this encounter Visit Diagnoses Not on filedocumented in this encounter Care Teams Air Defense Control Officer Relationship Specialty Start Date End Date Fatmata Handy MD PCP - General 01/09/01 06/16/22 Elsa Fontaine MD [address] [place] [address] PCP - General Internal Medicine 06/17/22 documented as of this encounter
--- OUTSIDE RECORDS SUMMARY | 2024-12-04 11:00 | XMS_ITS | Encounter Summary ---
Author Organization [facility] Address [address] [place] [address] Care Team Providers Care Law Firm Receptionist Name Role Phone Fatmata Handy MD Primary Care Provider Un available Elsa Fontaine MD Primary Care Provider [phone] Encounter Details Date Type Department Care Team Description 11/02/2012 Hospital Medical Records [address] [place] [address] Jimmy Olguin MD Social History Tobacco Use Types Packs/Day [...] on filedocumented in this encounter Care Teams Law Firm Receptionist Relationship Specialty Start Date End Date Fatmata Handy MD PCP - General 01/09/01 06/16/22 Elsa Fontaine MD [address] [place] [address] PCP - General Internal Medicine 06/17/22 documented as of this encounter
--- OUTSIDE RECORDS SUMMARY | 2024-12-04 11:00 | XMS_ITS | Encounter Summary ---
Author Organization [facility] Address [address] [place] [address] Care Team Providers Care Air Turning Machine Feeder Name Role Phone Fatmata Handy MD Primary Care Provider Un available Elsa Fontaine MD Primary Care Provider [phone] Encounter Details Date Type Department Care Team Description 01/24/2019 Hospital Medical Records [address] [place] [address] Duy Cullen MD [address] [place] [address] Social History Tobacco Use Types Packs/Day Years [...] filedocumented in this encounter Care Teams Air Turning Machine Feeder Relationship Specialty Start Date End Date Fatmata Handy MD PCP - General 01/09/01 06/16/22 Elsa Fontaine MD [address] [place] [phone] PCP - General Internal Medicine 06/17/22 documented as of this encounter
--- OUTSIDE RECORDS SUMMARY | 2024-12-04 11:00 | XMS_ITS | Encounter Summary ---
Author Organization [facility] Address [address] [place] [address] Care Team Providers Care Concrete Hopper Operator Name Role Phone Fatmata Handy MD Primary Care Provider Un available Elsa Fontaine MD Primary Care Provider [phone] Encounter Details Date Type Department Care Team Description 01/03/2013 Hospital Medical Records [address] [place] [address] Ghislaine Ramírez MD Social History Tobacco Use [...] on filedocumented in this encounter Care Teams Concrete Hopper Operator Relationship Specialty Start Date End Date Fatmata Handy MD PCP - General 01/09/01 06/16/22 Elsa Fontaine MD [address] [place] [address] [phone] PCP - General Internal Medicine 06/17/22 documented as of this encounter
--- OUTSIDE RECORDS SUMMARY | 2024-12-04 11:00 | XMS_ITS | Encounter Summary ---
Author Organization [facility] Address [address] [place] [address] Care Team Providers Care Support Services Manager Name Role Phone Fatmata Handy MD Primary Care Provider Un available Elsa Fontaine MD Primary Care Provider [phone] Encounter Details Date Type Department Care Team Description 03/12/2017 Morning Show Producer Report Medical Records [address] [place] [address] Diamante Olivier MD Social History Tobacco Use Types Packs/Day [...] on filedocumented in this encounter Care Teams Support Services Manager Relationship Specialty Start Date End Date Fatmata Handy MD PCP - General 01/09/01 06/16/22 Elsa Fontaine MD [address] [place] [address] [id number] PCP - General Internal Medicine 06/17/22 documented as of this encounter
--- OUTSIDE RECORDS SUMMARY | 2024-12-04 11:00 | XMS_ITS | Encounter Summary ---
Author Organization [facility] Address [address] [place] [address] Care Team Providers Care Garden Center Manager Name Role Phone Fatmata Handy MD Primary Care Provider Un available Elsa Fontaine MD Primary Care Provider [phone] Encounter Details Date Type Department Care Team Description 11/02/2012 Hospital Medical Records [address] [place] [address] Tiffani Cox Social History Tobacco Use Types Packs/Day Years [...] on filedocumented in this encounter Care Teams Garden Center Manager Relationship Specialty Start Date End Date Fatmata Handy MD PCP - General 01/09/01 06/16/22 Elsa Fontaine MD [address] [place] [phone] PCP - General Internal Medicine 06/17/22 documented as of this encounter
--- OUTSIDE RECORDS SUMMARY | 2024-12-04 11:00 | XMS_ITS | Encounter Summary ---
Author Organization [facility] Address [address] [place] [address] Care Team Providers Care Retail Leasing Agent Name Role Phone Fatmata Handy MD Primary Care Provider Un available Elsa Fontaine MD Primary Care Provider [phone] Encounter Details Date Type Department Care Team Description 01/21/2018 [facility] Medical Records [address] [place] [address] Abstract, Provider Social History Tobacco Use Types [...] on filedocumented in this encounter Care Teams Retail Leasing Agent Relationship Specialty Start Date End Date Fatmata Handy MD PCP - General 01/09/01 06/16/22 Elsa Fontaine MD [address] [place] [phone] PCP - General Internal Medicine 06/17/22 documented as of this encounter
--- OUTSIDE RECORDS SUMMARY | 2024-12-04 11:00 | XMS_ITS | Encounter Summary ---
Author Organization [facility] Address [address] [place] [address] Care Team Providers Care Flotation Operator Name Role Phone Fatmata Handy MD Primary Care Provider Un available Elsa Fontaine MD Primary Care Provider [phone] Encounter Details Date Type Department Care Team Description 11/25/2012 Hospital Medical Records [address] [place] [address] Abstract, Provider Social History Tobacco Use Types [...] on filedocumented in this encounter Care Teams Flotation Operator Relationship Specialty Start Date End Date Fatmata Handy MD PCP - General 01/09/01 06/16/22 Elsa Fontaine MD [address] [place] [id number] PCP - General Internal Medicine 06/17/22 documented as of this encounter
--- OUTSIDE RECORDS SUMMARY | 2024-12-04 11:00 | XMS_ITS | Encounter Summary ---
Author Organization [facility] Address [address] [place] [address] Care Team Providers Care Inspector Packager Name Role Phone Fatmata Handy MD Primary Care Provider Un available Elsa Fontaine MD Primary Care Provider [phone] Encounter Details Date Type Department Care Team Description 11/17/2012 Hospital Medical Records [address] [place] [address] Wellington Santoyo Social History Tobacco Use Types Packs/Day Years [...] on filedocumented in this encounter Care Teams Inspector Packager Relationship Specialty Start Date End Date Fatmata Handy MD PCP - General 01/09/01 06/16/22 Elsa Fontaine MD [address] [place] [phone] PCP - General Internal Medicine 06/17/22 documented as of this encounter
--- OUTSIDE RECORDS SUMMARY | 2024-12-04 11:00 | XMS_ITS | Encounter Summary ---
Author Organization [facility] Address [address] [place] [address] Care Team Providers Care Order Desk Caller Name Role Phone Fatmata Handy MD Primary Care Provider Un available Elsa Fontaine MD Primary Care Provider [phone] Encounter Details Date Type Department Care Team Description 01/12/2015 Pt. Non Urgent Medic al Question Medicine/Pediatrics - [address] [phone] Fatmata Handy MD Social History Tobacco Use [...] Progress Notes * Evelyn Solis L.P.N. - 01/14/2015 9:50 AM EDTFrom: Marimar Granger To: Fatmata Handy MD Sent: 01/12/2015 8:09 AM EDT Subject: Refill of inhaler Good morning. Dr Ricky Jauregui last prescribed my Xopenex inhaler. Unfortunately he states he will not refill it for me anymore because during all my hospitalizations I missed an appointment. Can you please take over management of my inhaler & authorize a refill? I'm on the last of it & it'sthe only one that helps during an attack. Thank you. documented in this encounter Plan of Treatment Not on file documented as of this encounter Visit Diagnoses Not on filedocumented in this encounter Care Teams Order Desk Caller Relationship Specialty Start Date End Date Fatmata Handy MD PCP - General 01/09/01 06/16/22 Elsa Fontaine MD [address] [place] [phone] PCP - General Internal Medicine 06/17/22 documented as of this encounter
--- OUTSIDE RECORDS SUMMARY | 2024-12-04 11:00 | XMS_ITS | Encounter Summary ---
Author Organization [facility] Address [address] [place] [address] Care Team Providers Care Residential Counselor Name Role Phone Fatmata Handy MD Primary Care Provider Un available Elsa Fontaine MD Primary Care Provider [phone] Encounter Details Date Type Department Care Team Description 01/03/2013 Hospital Medical Records [address] [place] [address] Damien Dowling MD Social History Tobacco Use Types Packs/Day [...] on filedocumented in this encounter Care Teams Residential Counselor Relationship Specialty Start Date End Date Fatmata Handy MD PCP - General 01/09/01 06/16/22 Elsa Fontaine MD [address] [place] [address] [phone] PCP - General Internal Medicine 06/17/22 documented as of this encounter
--- OUTSIDE RECORDS SUMMARY | 2024-12-04 11:00 | XMS_ITS | Encounter Summary ---
Author Organization [facility] Address [address] [place] [address] Care Team Providers Care Laminating Machine Operator Name Role Phone Fatmata Handy MD Primary Care Provider Un available Elsa Fontaine MD Primary Care Provider [phone] Encounter Details Date Type Department Care Team Description 07/11/2018 Pt. Non Urgent Medic al Question Medicine/Pediatrics - [address] [phone] Fatmata Handy MD Social History Tobacco Use [...] of this encounter Progress Notes * Evelyn SmithPSannaN. - 07/11/2018 3:20 PM EDTFrom: Marimar Jalloh To: Fatmata Handy MD Sent: 07/11/2018 3:19 PM EDT Subject: Right ankle pain Good afternoon. I have been seen in the past for right ankle sprains by Dr Otto Newell in [place]. On May 29 I believe I sprained it again. I was seen in urgent care on Jun 20 as it was not getting any better. They did an X-ray and did not find any breakage. I was given crutches & told to wear my brace. It has not yet gotten better, and urgent care told me to follow up with Dr Newell if the pain continued. Do I need to be seen in your office first or can I call him to be seen? Thank you Marimar documented in this encounter Plan of Treatment Not on file documented as of this encounter Visit Diagnoses Not on filedocumented in this encounter Care Teams Laminating Machine Operator Relationship Specialty Start Date End Date Fatmata Handy MD PCP - General 01/09/01 06/16/22 Elsa Fontaine MD [address] [place] [phone] PCP - General Internal Medicine 06/17/22 documented as of this encounter
--- OUTSIDE RECORDS SUMMARY | 2024-12-04 11:00 | XMS_ITS | Encounter Summary ---
Author Organization [facility] Address [address] [place] [address] Care Team Providers Care Budget Accountant Name Role Phone Elsa Fontaine MD Primary Care Provider [phone] Encounter Details Date Type Department Care Team Description 06/01/2023 Orders Only Medical Records [address] [place] [address] Uvaldo Garcia MD [address] [place] [address] Social History Tobacco Use Types Packs/Day Years Used Date Smoking Tobacco: Never Smokeless Tobacco: Never Alcohol Use Standard Drinks/Week Comments Yes 0.8 (1 standard drink = 0.6 oz p ure alcohol) occ Sex Assigned at Date Recorded Not on file Job Start Date Occupation Industry Not on file Not on file Not on file documented as of this encounter Progress Notes * Melodie Garcia MD - 06/01/2023 8:08 PM EDT Please check the patient H. pylori breath test. 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 pylori documented in this encounter Plan of Treatment Not on file documented as of this encounter Procedures Procedure Name Priority Date/Time Associated Diagnosis Comments OUTSIDE PATHOLOGY Routine 04/06/2023 documented in this encounter Results * OUTSIDE PATHOLOGY (04/06/2023) Uvaldo Garcia MD OUTSIDE LAB documented in this encounter Visit Diagnoses Not on filedocumented in this encounter Care Teams Budget Accountant Relationship Specialty Start Date End Date Elsa Fontaine MD [address] [place] [address] PCP - General Internal Medicine 06/17/22 documented as of this encounter
--- OUTSIDE RECORDS SUMMARY | 2024-12-04 11:00 | XMS_ITS | Encounter Summary ---
Author Organization [facility] Address [address] [place] [address] Care Team Providers Care Tow Motor Driver Name Role Phone Fatmata Handy MD Primary Care Provider Un available Elsa Fontaine MD Primary Care Provider [phone] Encounter Details Date Type Department Care Team Description 06/20/2013 Breakdown Man Report Medical Records [address] [place], [place] [phone] [place] [address] [phone] Social History Tobacco Use Types Packs/Day Years [...] on filedocumented in this encounter Care Teams Tow Motor Driver Relationship Specialty Start Date End Date Fatmata Handy MD PCP - General 01/09/01 06/16/22 Elsa Fontaine MD [address] [place] [address] PCP - General Internal Medicine 06/17/22 documented as of this encounter
--- OUTSIDE RECORDS SUMMARY | 2024-12-04 11:00 | XMS_ITS | Encounter Summary ---
Author Organization [facility] Address [address] [place] [address] Care Team Providers Care Online Publisher Name Role Phone Fatmata Handy MD Primary Care Provider Un available Elsa Fontaine MD Primary Care Provider [phone] Encounter Details Date Type Department Care Team Description 02/09/2017 Release of Information Medical Records [address] [place] [address] Abstract, Provider Social History Tobacco Use Types [...] on filedocumented in this encounter Care Teams Online Publisher Relationship Specialty Start Date End Date Fatmata Handy MD PCP - General 01/09/01 06/16/22 Elsa Fontaine MD [address] [place] [phone] PCP - General Internal Medicine 06/17/22 documented as of this encounter
--- OUTSIDE RECORDS SUMMARY | 2024-12-04 11:00 | XMS_ITS | Encounter Summary ---
Author Organization [facility] Address [address] [place] [address] Care Team Providers Care Preschool Teacher Assistant Name Role Phone Fatmata Handy MD Primary Care Provider Un available Elsa Fontaine MD Primary Care Provider [phone] Encounter Details Date Type Department Care Team Description 01/24/2019 Pt. Non Urgent Medical Question General Surgery - [address] [place] [phone] Duy Cullen MD [address] [place] [address] Social History Tobacco Use Types Packs/Day Years Used Date Smoking Tobacco: Never Smokeless Tobacco: Never Alcohol Use Standard Drinks/Week Comments Yes 0.8 (1 standard drink = 0.6 oz p ure alcohol) very rare. Sex Assigned at Date Recorded Not on file Job Start Date Occupation Industry Not on file Not on file Not on file documented as of this encounter Progress Notes * Dena Núñez M.A. - 01/25/2019 9:58 AM EDTFrom: Marimar Jalloh To: Duy Cullen MD Sent: 01/24/2019 8:54 PM EDT Subject: Surgery results Hello there. So my unfortunately is not the greatest at relaying information. I don't remember much of what the nurses said. I know I have a follow up with your PA next week but I would like to set up my appointment with my COMMUNITY SERVICE WORKER as well with pertinent information. So 1) was a nerve block done? 2) I saw the pictures with a ? of endometriosis. Were any biopsies taken? 3) a nurse mentioned a cyst. Was anything done regarding that? Thank you so much for helping find answers to my pain. documented in this encounter Plan of Treatment Not on file documented as of this encounter Visit Diagnoses Not on filedocumented in this encounter Care Teams Preschool Teacher Assistant Relationship Specialty Start Date End Date Fatmata Handy MD PCP - General 01/09/01 06/16/22 Elsa Fontaine MD [address] [place] [phone] PCP - General Internal Medicine 06/17/22 documented as of this encounter
--- OUTSIDE RECORDS SUMMARY | 2024-12-04 11:00 | XMS_ITS | Encounter Summary ---
Author Organization [facility] Address [address] [place] [address] Care Team Providers Care Unit Technician Name Role Phone Fatmata Handy MD Primary Care Provider Un available Elsa Fontaine MD Primary Care Provider [phone] Reason for Visit * Reason Onset Date Comments Medical Records 12/28/2013 Encounter Details Date Type Department Care Team Description 12/28/2013 Telephone Medicine/Pediatrics - [address] [phone] Fatmata Handy MD Medical Records Social History Tobacco Use Types Packs/Day Years [...] encounter Miscellaneous Notes * Telephone Encounter - Radha Zarate - 12/28/2013 2:27 PM EDT Rec'vd medical records from our records dept lmm for pt to picker and packer documented in this encounter Plan of Treatment Not on file documented as of this encounter Visit Diagnoses Not on filedocumented in this encounter Care Teams Unit Technician Relationship Specialty Start Date End Date Fatmata Handy MD PCP - General 01/09/01 06/16/22 Elsa Fontaine MD [address] [place] [phone] PCP - General Internal Medicine 06/17/22 documented as of this encounter
--- OUTSIDE RECORDS SUMMARY | 2024-12-04 11:00 | XMS_ITS | Encounter Summary ---
Author Organization [facility] Address [address] [place] [address] Care Team Providers Care Panel Beater Name Role Phone Fatmata Handy MD Primary Care Provider Un available Elsa Fontaine MD Primary Care Provider [phone] Encounter Details Date Type Department Care Team Description 05/10/2018 Public Information Coordinator Report Medical Records [address] [place] [address] Ricky Jauregui MD Social History Tobacco Use [...] on filedocumented in this encounter Care Teams Panel Beater Relationship Specialty Start Date End Date Fatmata Handy MD PCP - General 01/09/01 06/16/22 Elsa Fontaine MD [address] [place] [address] [phone] PCP - General Internal Medicine 06/17/22 documented as of this encounter
--- OUTSIDE RECORDS SUMMARY | 2024-12-04 11:00 | XMS_ITS | Encounter Summary ---
Author Organization [facility] Address [address] [place] [address] Care Team Providers Care Senior Controls Analyst Name Role Phone Fatmata Handy MD Primary Care Provider Un available Elsa Fontaine MD Primary Care Provider [phone] Encounter Details Date Type Department Care Team Description 04/14/2017 Welder Fitter Report Medical Records [address] [place] [address] Diamante Olivier MD Social History Tobacco Use [...] on filedocumented in this encounter Care Teams Senior Controls Analyst Relationship Specialty Start Date End Date Fatmata Handy MD PCP - General 01/09/01 06/16/22 Elsa Fontaine MD [address] [place] [address] [phone] PCP - General Internal Medicine 06/17/22 documented as of this encounter
--- OUTSIDE RECORDS SUMMARY | 2024-12-04 11:00 | XMS_ITS | Encounter Summary ---
Author Organization [facility] Address [address] [place] [address] Care Team Providers Care Crude Tester Name Role Phone Fatmata Handy MD Primary Care Provider Un available Elsa Fontaine MD Primary Care Provider [phone] Encounter Details Date Type Department Care Team Description 12/08/2016 Pt. Non Urgent Medical Question Medicine/Pediatrics - [address] [phone] Kaylan Aguilar PA-C Social History Tobacco Use Types Packs/Day [...] this encounter Progress Notes * Evelyn Solis L.P.NSanna - 12/08/2016 3:37 PM ESTFrom: Marimar Granger To: Kaylan Aguilar PA-C Sent: 12/08/2016 3:02 PM EST Subject: Breast pain Good afternoon, I am scheduled for an overdue repeat mammogram on . I have been experiencing daily throbbing pain for the past month. I no longer have periods since I have been on the IUD. The pain is worst in the left breast, where I have 2 known lumps. One is sore to the touch. They are not warm to the touch, but both nipples have dry skin. I have been putting lotion on them. No discharge.. The pain can sometimes cause me to take Tylenol and sit down just holding them. I am not . I have been going thru the process of settling a very personal HIPAA lawsuit that has caused quite a bit of PTSDand have been avoiding Dr visits sadly (no offense to your practice- it was not your office!). I just want to know what I should do if my results come back normal. Thank you, Marimar documented in this encounter Plan of Treatment Not on file documented as of this encounter Visit Diagnoses Not on filedocumented in this encounter Care Teams Crude Tester Relationship Specialty Start Date End Date Fatmata Handy MD PCP - General 01/09/01 06/16/22 Elsa Fontaine MD [address] [place] [phone] PCP - General Internal Medicine 06/17/22 documented as of this encounter
--- OUTSIDE RECORDS SUMMARY | 2024-12-04 11:00 | XMS_ITS | Encounter Summary ---
Author Organization [facility] Address [address] [place] [address] Care Team Providers Care Manager Commercial Sales Name Role Phone Fatmata Handy MD Primary Care Provider Un available Elsa Fontaine MD Primary Care Provider [phone] Encounter Details Date Type Department Care Team Description 02/04/2017 Senior Sales Representative Report Medical Records [address] [place] [phone] Diamante Olivier MD Social History Tobacco Use [...] filedocumented in this encounter Care Teams Manager Commercial Sales Relationship Specialty Start Date End Date Fatmata Handy MD PCP - General 01/09/01 06/16/22 Elsa Fontaine MD [address] [place] [address] [phone] PCP - General Internal Medicine 06/17/22 documented as of this encounter
--- OUTSIDE RECORDS SUMMARY | 2024-12-04 11:00 | XMS_ITS | Encounter Summary ---
Author Organization [facility] Address [address] [place] [address] Care Team Providers Care Wood Barrel Reconditioner Name Role Phone Fatmata Handy MD Primary Care Provider Un available Elsa Fontaine MD Primary Care Provider [phone] Encounter Details Date Type Department Care Team Description 01/10/2020 Refill PORCELAIN MIXER - [address] [address] Fariba Celis CNM [address] [place] [address] Social History Tobacco Use Types Packs/Day Years [...] on filedocumented in this encounter Care Teams Wood Barrel Reconditioner Relationship Specialty Start Date End Date Fatmata Handy MD PCP - General 01/09/01 06/16/22 Elsa Fontaine MD [address] [place] [phone] PCP - General Internal Medicine 06/17/22 documented as of this encounter
--- OUTSIDE RECORDS SUMMARY | 2024-12-04 11:00 | XMS_ITS | Encounter Summary ---
Author Organization [facility] Address [address] [place] [address] Care Team Providers Care Wood Club Neck Whipper Name Role Phone Fatmata Handy MD Primary Care Provider Un available Elsa Fontaine MD Primary Care Provider [phone] Encounter Details Date Type Department Care Team Description 01/18/2017 [facility] Medical Records [address] [place] [phone] Abstract, Provider Social History Tobacco Use Types [...] filedocumented in this encounter Care Teams Wood Club Neck Whipper Relationship Specialty Start Date End Date Fatmata Handy MD PCP - General 01/09/01 06/16/22 Elsa Fontaine MD [address] [place] [phone] PCP - General Internal Medicine 06/17/22 documented as of this encounter
--- OUTSIDE RECORDS SUMMARY | 2024-12-04 11:00 | XMS_ITS | Encounter Summary ---
Author Organization [facility] Address [address] [place] [address] Care Team Providers Care Vamp Maker Name Role Phone Fatmata Handy MD Primary Care Provider Un available Elsa Fontaine MD Primary Care Provider [phone] Encounter Details Date Type Department Care Team Description 10/13/2018 Pt. Non Urgent Medic al Question Medicine/Pediatrics - [address] [id number] Marie Odell PA-C Social History Tobacco Use [...] Progress Notes * Evelyn Solis L.P.N. - 10/13/2018 9:53 AM ESTFrom: Marimar Jalloh To: Marie Odell PA-C Sent: 10/13/2018 9:33 AM EST Subject: Foot pain/MRI Good morning. I received a denial for the MRI. Is there a way to appeal it? It states I did not meet certain criteria, which I did 05/29- date of injury 06/20- seen at [facility] urgent care. Had X-ray and was given crutches, X-ray showed no breaks 07/28- was seen at [facility] in [place]. Weight bearing X-ray done; negative for breaks. Was given new supportive brace. Had to cancel follow up as insurance denied the visit for no authorization. 12/12- follow up with Evelyn regarding continued pain My next appointment is November 04 with podiatry in [place]. I'm still experiencing trouble walking and pain. Thank you, Marimar documented in this encounter Plan of Treatment Not on file documented as of this encounter Visit Diagnoses Not on filedocumented in this encounter Care Teams Vamp Maker Relationship Specialty Start Date End Date Fatmata Handy MD PCP - General 01/09/01 06/16/22 Elsa Fontaine MD [address] [place] [phone] PCP - General Internal Medicine 06/17/22 documented as of this encounter
--- OUTSIDE RECORDS SUMMARY | 2024-12-04 11:00 | XMS_ITS | Encounter Summary ---
Author Organization [facility] Address [address] [place] [address] Care Team Providers Care Wave Soldering Machine Operator Name Role Phone Fatmata Handy MD Primary Care Provider Un available Elsa Fontaine MD Primary Care Provider [phone] Reason for Visit * Reason Onset Date Comments medication problems 03/18/2018 Encounter Details Date Type Department Care Team Description 03/18/2018 Telephone OBGYN - [address] [address] Sierra Navarrete DO medication problems Social History Tobacco Use Types Packs/Day Years [...] Telephone Encounter - Gely Corral R.N. - 03/18/2018 2:10 PM EDT Rx did not go through to the pharmacy * Telephone Encounter - Mirta Armas - 03/18/2018 2:07 PM EDT Pt saw dr acuna the other day was supposed to have a rx for tramdolol faxed [facility] [place] they do not have the rx please re fax documented in this encounter Plan of Treatment Not on file documented as of this encounter Visit Diagnoses Not on filedocumented in this encounter Care Teams Wave Soldering Machine Operator Relationship Specialty Start Date End Date Fatmata Handy MD PCP - General 01/09/01 06/16/22 Elsa Fontaine MD [address] [place] [phone] PCP - General Internal Medicine 06/17/22 documented as of this encounter
--- OUTSIDE RECORDS SUMMARY | 2024-12-04 11:00 | XMS_ITS | Encounter Summary ---
Author Organization [facility] Address [address] [place] [address] Care Team Providers Care Network Desktop Support Specialist Name Role Phone Fatmata Handy MD Primary Care Provider Un available Elsa Fontaine MD Primary Care Provider [phone] Encounter Details Date Type Department Care Team Description 05/14/2019 Hospital Medical Records [address] [place] [address] Tiffani Chavez, DO [address] [place] [address] Social History Tobacco Use Types Packs/Day Years [...] on filedocumented in this encounter Care Teams Network Desktop Support Specialist Relationship Specialty Start Date End Date Fatmata Handy MD PCP - General 01/09/01 06/16/22 Elsa Fontaine MD [address] [place] [address] PCP - General Internal Medicine 06/17/22 documented as of this encounter
--- OUTSIDE RECORDS SUMMARY | 2024-12-04 11:00 | XMS_ITS | Encounter Summary ---
Author Organization [facility] Address [address] [place] [address] Care Team Providers Care Library Customer Service Clerk Name Role Phone Fatmata Handy MD Primary Care Provider Un available Elsa Fontaine MD Primary Care Provider Encounter Details Date Type Department Care Team Description 02/17/2018 Hospital Medical Records [address] [place] [address] Sierra Navarrete DO Social History Tobacco Use [...] on filedocumented in this encounter Care Teams Library Customer Service Clerk Relationship Specialty Start Date End Date Fatmata Handy MD PCP - General 01/09/01 06/16/22 Elsa Fontaine MD [address] [place] [id number] PCP - General Internal Medicine 06/17/22 documented as of this encounter
--- OUTSIDE RECORDS SUMMARY | 2024-12-04 11:00 | XMS_ITS | Encounter Summary ---
Author Organization [facility] Address [address] [place] [address] Care Team Providers Care Linoleum Printer Name Role Phone Fatmata Handy MD Primary Care Provider Un available Elsa Fontaine MD Primary Care Provider [phone] Encounter Details Date Type Department Care Team Description 07/28/2019 Pt. Non Urgent Medic al Question Medicine/Pediatrics - [address] [phone] Fatmata Handy MD Social History Tobacco Use [...] as of this encounter Progress Notes * Epifanio Moe M.A. - 07/28/2019 12:15 PM EDTFrom: Marimar Jalloh To: Fatmata Hadny MD Sent: 07/28/2019 12:11 PM EDT Subject: Update on symptoms Good afternoon. At the last appointment we had discussed lower back and neck pain. The muscle relaxers so far have not helped. Now I'm feeling pain in my left shoulder blade. It is painful to the touch, and gives a sharp pain if I take a deep breath. I'm now also nauseous and light headed. I have no cold symptoms, no cough. I have not done anything strenuous. I can not lift my left arm above my chest without getting sharp pains on the left side. I am not sure what I should do. If I try to lay on my left side it feels like a horse shoe is wrapped around my chest. I don't know how else to describe it. documented in this encounter Plan of Treatment Not on file documented as of this encounter Visit Diagnoses Not on filedocumented in this encounter Care Teams Linoleum Printer Relationship Specialty Start Date End Date Fatmata Handy MD PCP - General 01/09/01 06/16/22 Elsa Fontaine MD [address] [place] [id number] PCP - General Internal Medicine 06/17/22 documented as of this encounter
--- OUTSIDE RECORDS SUMMARY | 2024-12-04 11:00 | XMS_ITS | Encounter Summary ---
Author Organization [facility] Address [address] [place] [address] Care Team Providers Care Global Expansion Sales Director Name Role Phone Fatmata Handy MD Primary Care Provider Un available Elsa Fontaine MD Primary Care Provider [phone] Encounter Details Date Type Department Care Team Description 01/21/2018 Blind Lacer Report Medical Records [address] [place] [address] Abstract, Provider Social History Tobacco Use Types [...] on filedocumented in this encounter Care Teams Global Expansion Sales Director Relationship Specialty Start Date End Date Fatmata Handy MD PCP - General 01/09/01 06/16/22 Elsa Fontaine MD [address] [place] [address] [phone] PCP - General Internal Medicine 06/17/22 documented as of this encounter
--- OUTSIDE RECORDS SUMMARY | 2024-12-04 11:00 | XMS_ITS | Encounter Summary ---
Author Organization [facility] Address [address] [place] [address] Care Team Providers Care Air Quality Engineer Name Role Phone Fatmata Handy MD Primary Care Provider Un available Elsa Fontaine MD Primary Care Provider Encounter Details Date Type Department Care Team Description 03/30/2014 Linen Sorter Report Medical Records [address] [place] [phone] Jimmy Gore MD Social History Tobacco Use Types Packs/Day [...] filedocumented in this encounter Care Teams Air Quality Engineer Relationship Specialty Start Date End Date Fatmata Handy MD PCP - General 01/09/01 06/16/22 Elsa Fontaine MD [address] [place] [address] [phone] PCP - General Internal Medicine 06/17/22 documented as of this encounter
--- OUTSIDE RECORDS SUMMARY | 2024-12-04 11:00 | XMS_ITS | Encounter Summary ---
Author Organization [facility] Address [address] [place] [address] Care Team Providers Care Manager Plant Name Role Phone Fatmata Handy MD Primary Care Provider Un available Elsa Fontaine MD Primary Care Provider [phone] Encounter Details Date Type Department Care Team Description 01/27/2013 Linker Up Report Medical Records [address] [place] [address] Samuel Almodovar MD Social History Tobacco Use Types Packs/Day [...] filedocumented in this encounter Care Teams Manager Plant Relationship Specialty Start Date End Date Fatmata Handy MD PCP - General 01/09/01 06/16/22 Elsa Fontaine MD [address] [place], [place] [phone] PCP - General Internal Medicine 06/17/22 documented as of this encounter
--- OUTSIDE RECORDS SUMMARY | 2024-12-04 11:00 | XMS_ITS | Encounter Summary ---
Author Organization [facility] Address [address] [place] [address] Care Team Providers Care Allergist/Md Name Role Phone Fatmata Handy MD Primary Care Provider Un available Elsa Fontaine MD Primary Care Provider [phone] Encounter Details Date Type Department Care Team Description 07/17/2013 Transfer Records Medical Records [address] [place] [address] Abstract, Provider Social History Tobacco Use Types [...] on filedocumented in this encounter Care Teams Allergist/Md Relationship Specialty Start Date End Date Fatmata Handy MD PCP - General 01/09/01 06/16/22 Elsa Fontaine MD [address] [place] [phone] PCP - General Internal Medicine 06/17/22 documented as of this encounter
--- OUTSIDE RECORDS SUMMARY | 2024-12-04 11:00 | XMS_ITS | Encounter Summary ---
Author Organization [facility] Address [address] [place] [address] Care Team Providers Care Lucerne Farmer Name Role Phone Fatmata Handy MD Primary Care Provider Un available Elsa Fontaine MD Primary Care Provider [phone] Encounter Details Date Type Department Care Team Description 06/12/2016 Web Production Artist Report Medical Records [address] [place] [address] Usha Jessica Social History Tobacco Use Types Packs/Day Years [...] on filedocumented in this encounter Care Teams Lucerne Farmer Relationship Specialty Start Date End Date Fatmata Handy MD PCP - General 01/09/01 06/16/22 Elsa Fontaine MD [address] [place] [address] [phone] PCP - General Internal Medicine 06/17/22 documented as of this encounter
--- OUTSIDE RECORDS SUMMARY | 2024-12-04 11:00 | XMS_ITS | Encounter Summary ---
Author Organization [facility] Address [address] [place] [address] Care Team Providers Care Salvage Cutter Name Role Phone Fatmata Handy MD Primary Care Provider Un available Elsa Fontaine MD Primary Care Provider Encounter Details Date Type Department Care Team Description 11/24/2013 Hospital Medical Records [address] [place] [address] Francis Fraser MD Social History Tobacco Use Types Packs/Day [...] filedocumented in this encounter Care Teams Salvage Cutter Relationship Specialty Start Date End Date Fatmata Handy MD PCP - General 01/09/01 06/16/22 Elsa Fontaine MD [address] [place] [id number] PCP - General Internal Medicine 06/17/22 documented as of this encounter
--- OUTSIDE RECORDS SUMMARY | 2024-12-04 11:00 | XMS_ITS | Encounter Summary ---
Author Organization [facility] Address [address] [place] [address] Care Team Providers Care Salt Manager Name Role Phone Fatmata Handy MD Primary Care Provider Un available Elsa Fontaine MD Primary Care Provider [phone] Encounter Details Date Type Department Care Team Description 07/09/2013 Hospital Medical Records [address] [place] [address] Migel Calderón MD Social History Tobacco Use [...] on filedocumented in this encounter Care Teams Salt Manager Relationship Specialty Start Date End Date Fatmata Handy MD PCP - General 01/09/01 06/16/22 Elsa Fontaine MD [address] [place] [phone] PCP - General Internal Medicine 06/17/22 documented as of this encounter
--- OUTSIDE RECORDS SUMMARY | 2024-12-04 11:00 | XMS_ITS | Encounter Summary ---
Author Organization [facility] Address [address] [place] [address] Care Team Providers Care Back Shoe Worker Name Role Phone Fatmata Handy MD Primary Care Provider Un available Elsa Fontaine MD Primary Care Provider [phone] Encounter Details Date Type Department Care Team Description 03/14/2015 Pt. Non Urgent Medical Question ANALYTICAL STRATEGIST - [address] [address] Ghislaine Ramírez MD Social History Tobacco Use [...] Progress Notes * Gely Corral R.N. - 03/14/2015 9:30 AM EDTFrom: Marimar Granger To: Ghislaine Ramírez MD Sent: 03/14/2015 9:25 AM EDT Subject: Question regarding THINPREP PAP HPV ANY So it says HPV high risk positive. Does that mean HPV positive? I made an appt for next Wednesday. Sorry I missed your call. Thank you Ghislaine. documented in this encounter Plan of Treatment Not on file documented as of this encounter Visit Diagnoses Not on filedocumented in this encounter Care Teams Back Shoe Worker Relationship Specialty Start Date End Date Fatmata Handy MD PCP - General 01/09/01 06/16/22 Elsa Fontaine MD [address] [place] [id number] PCP - General Internal Medicine 06/17/22 documented as of this encounter
--- OUTSIDE RECORDS SUMMARY | 2024-12-04 11:00 | XMS_ITS | Encounter Summary ---
Author Organization [facility] Address [address] [place] [address] Care Team Providers Care Disabilities Services Officer Name Role Phone Fatmata Handy MD Primary Care Provider Un available Elsa Fontaine MD Primary Care Provider [phone] Encounter Details Date Type Department Care Team Description 10/18/2012 Night Triage Doc Medical Records [address] [place] [address] Abstract, Provider Social History Tobacco Use Types [...] on filedocumented in this encounter Care Teams Disabilities Services Officer Relationship Specialty Start Date End Date Fatmata Handy MD PCP - General 01/09/01 06/16/22 Elsa Fontaine MD [address] [place] [id number] PCP - General Internal Medicine 06/17/22 documented as of this encounter
--- OUTSIDE RECORDS SUMMARY | 2024-12-04 11:00 | XMS_ITS | Encounter Summary ---
Author Organization [facility] Address [address] [place] [address] Care Team Providers Care Acoustical Logging Engineer Name Role Phone Fatmata Handy MD Primary Care Provider Un available lEsa Fontaine MD Primary Care Provider [phone] Encounter Details Date Type Department Care Team Description 11/29/2012 Hospital Medical Records [address] Social History Tobacco Use Types Packs/Day [...] on filedocumented in this encounter Care Teams Acoustical Logging Engineer Relationship Specialty Start Date End Date Fatmata Handy MD PCP - General 01/09/01 06/16/22 Elsa Fontaine MD [address] [place] [phone] PCP - General Internal Medicine 06/17/22 documented as of this encounter
--- OUTSIDE RECORDS SUMMARY | 2024-12-04 11:00 | XMS_ITS | Encounter Summary ---
Author Organization [facility] Address [address] [place] [address] Care Team Providers Care Car Pre Cooler Name Role Phone Fatmata Handy MD Primary Care Provider Un available Elsa Fontaine MD Primary Care Provider Encounter Details Date Type Department Care Team Description 10/26/2012 Hospital Medical Records [address] [place] [address] Subhash Heath MD Social History Tobacco Use Types Packs/Day [...] on filedocumented in this encounter Care Teams Car Pre Cooler Relationship Specialty Start Date End Date Fatmata Handy MD PCP - General 01/09/01 06/16/22 Elsa Fontaine MD [address] [place] [phone] PCP - General Internal Medicine 06/17/22 documented as of this encounter
--- OUTSIDE RECORDS SUMMARY | 2024-12-04 11:00 | XMS_ITS | Encounter Summary ---
Author Organization [facility] Address [address] [place] [address] Care Team Providers Care Fry Cook Name Role Phone Fatmata Handy MD Primary Care Provider Un available Elsa Fontaine MD Primary Care Provider [phone] Encounter Details Date Type Department Care Team Description 04/25/2011 Bi Tester Report Medical Records [address] [place] [address] Ricky Jauregui MD Social History Tobacco Use [...] on filedocumented in this encounter Care Teams Fry Cook Relationship Specialty Start Date End Date Fatmata Handy MD PCP - General 01/09/01 06/16/22 Elsa Fontaine MD [address] [place] [phone] PCP - General Internal Medicine 06/17/22 documented as of this encounter
--- OUTSIDE RECORDS SUMMARY | 2024-12-04 11:01 | XMS_ITS | Encounter Summary ---
Author Organization [facility] Address [address] [place] [address] Care Team Providers Care Energy Manager Name Role Phone Fatmata Handy MD Primary Care Provider Un available Elsa Fontaine MD Primary Care Provider [phone] Encounter Details Date Type Department Care Team Description 03/18/2019 SCAN Medical Records [address] [place] [address] Abstract, Provider Social History Tobacco Use Types [...] on filedocumented in this encounter Care Teams Energy Manager Relationship Specialty Start Date End Date Fatmata Handy MD PCP - General 01/09/01 06/16/22 Elsa Fontaine MD [address] [place] [address] [phone] PCP - General Internal Medicine 06/17/22 documented as of this encounter
--- OUTSIDE RECORDS SUMMARY | 2024-12-04 11:01 | XMS_ITS | Encounter Summary ---
Author Organization [facility] Address [address] [place] [address] Care Team Providers Care Water Mangle Tender Name Role Phone Fatmata Handy MD Primary Care Provider Un available Elsa Fontaine MD Primary Care Provider [phone] Encounter Details Date Type Department Care Team Description 02/17/2019 Telephone OBN - [address] [id number] Sierra Navarrete DO Social History Tobacco Use [...] * Telephone Encounter - Selma Ruth - 03/08/2019 10:58 AM EDT Robotic hysterectomy with bilateral salpingectomy, cystoscopy has been scheduled on 04/18/2019 at [facility] with Dr. Navarrete. Patient has been notified by phone and a letter has been sent to her. MD calendar has been updated and schedulers have been notified. AM * Telephone Encounter - Selma Ruth - 02/20/2019 3:50 PM EDT Spoke with patient, she is aware that we will be contacting her within 7 business days to schedule surgery. AM -pt want to be schedule BJ * Telephone Encounter - Sierra Navarrete DO - 02/17/2019 7:41 AM EDT FRENCH DRAWER SURGICAL BOOKING WORKSHEET 02/17/2019 Patient's Name: Marimar Jalloh : 1980 Payor information: Payor: [facility] / Plan: O $0 IUKA ONE / Product Type: HMO Zst-esn-Oyenmsb Allergies: Allergies Allergen Reactions ??? Sulfa Drugs Hives/Urticaria ??? Golytely [Colyte With Flavor] Hives/Urticaria and Swelling/Edema ??? Morphine Sulfate (Pf) Hives/Urticaria LMP: No LMP recorded. Diagnosis: Pelvic pain, endometriosis Surgery Procedure Planned: robotic Hyst bilateral salpingectomy, cystoscopy Special Instructions/Equipment needed: Type of Anesthesia: gen Stay: Daystay Location:[facility] Homemaker Companion Needed? YES Time Needed: 3 Urgency: elective Medicaid Sterilization (within 30 days - 180 days) and/or Medicare HI-1 form signed, if needed? N\ADate signed? Medical Clearance? NO Pre Op CUSTOMER SPECIALIST visit: yes Pap Needed at Pre Op Visit? NO No orders of the defined types were placed in this encounter. documented in this encounter Plan of Treatment Not on file documented as of this encounter Visit Diagnoses Not on filedocumented in this encounter Care Teams Water Mangle Tender Relationship Specialty Start Date End Date Fatmata Handy MD PCP - General 01/09/01 06/16/22 Elsa Fontaine MD [address] [place] [phone] PCP - General Internal Medicine 06/17/22 documented as of this encounter
--- OUTSIDE RECORDS SUMMARY | 2024-12-04 11:01 | XMS_ITS | Encounter Summary ---
Author Organization [facility] Address [address] [place] [address] Care Team Providers Care Pharmacy Benefit Manager Name Role Phone Fatmata Handy MD Primary Care Provider Un available Elsa Fontaine MD Primary Care Provider [phone] Encounter Details Date Type Department Care Team Description 03/18/2019 SCAN Medical Records [address] [place] [address] Abstract, Provider Social History Tobacco Use Types [...] on filedocumented in this encounter Care Teams Pharmacy Benefit Manager Relationship Specialty Start Date End Date Fatmata Handy MD PCP - General 01/09/01 06/16/22 Elsa Fontaine MD [address] [place] [address] [phone] PCP - General Internal Medicine 06/17/22 documented as of this encounter
== END 2024-12-04 10:57 | disposition home or self-care (01) ==
PROVIDERS: PCP Physician Assistant Medical; Visit Provider Physician Assistant Medical
DX: J45.909 Unspecified asthma, uncomplicated (principal); N63.12 Unspecified lump in the right breast, upper inner quadrant; J06.9 Acute upper respiratory infection, unspecified

== ENCOUNTER → 2024-12-04 09:56 | Outpatient (BNVA) | payer OTHER, SELFPAY | PROVIDERS: PCP Physician Assistant Medical; Visit Provider Physician Assistant Medical | DX: N63.12 Unspecified lump in the right breast, upper inner quadrant (principal); J06.9 Acute upper respiratory infection, unspecified; J45.909 Unspecified asthma, uncomplicated | CPT/HCPCS: 96127 ==

== ENCOUNTER 2024-12-12 07:52 | Outpatient (REF) | payer OTHER, SELFPAY ==
--- NOTE | 2024-12-12 07:55 | PFT_ITS ---
Indication: Asthma Spirometry [FEV1 to FVC 86%; FEV1 2.83 L; FVC 3.7 L. There is a significant response to bronchodilators noted. Does have a component of small airways disease with a significant response.] Lung Volumes [Total lung capacity 102% predicted] Diffusion Capacity DLCO 93% predicted Comparisons [None] Interpretation [No obstructive nor restrictive ventilatory defects identified. There was a significant response to bronchodilators noted. Lung volumes and diffusing capacity within normal limits. Patient does have evidence of small airways disease likely from underlying asthma. PFTs appear to be consistent with a history of asthma. Although, if a definitive diagnosis is warranted a methacholine challenge may be helpful in assessing hyperreactive airways disease. Clinical correlation recommended.] MTDD
--- OUTSIDE RECORDS SUMMARY | 2024-12-12 07:56 | XMS_ITS | Clinical Summary ---
Author Organization [facility] ity Address [address] [place] [address] Care Team Providers Care Sugar Controller Name Role Phone Elsa Fontaine MD Primary Care Provider [phone] Allergies Active Allergy Reactions Criticality Noted Date [...] Name Administration Dates Next Due Hepatitis B (Ubgciwc-L-Zrbuy , Recombivax HB-Adult) 19yo and older 06/05/2007,01/03/2007,02/14/2004,07/23,08/16/1997,07/23/1997 [...] WISDOM TEETH EXTRACTION BREAST REDUCTION 12/2009 PROCEDURE: OK BREAST REDUCTION OTHER SURGICAL HISTORY 1291013 PROCEDURE: OK LAPS FULG/EXC OVARY VISCERA/PERITONEAL SURFACE; COMMENT: endometriosis - Dr Hugh Newell APPENDECTOMY 1291013 PROCEDURE: HISTORICAL APPENDECTOMY CHOLECYSTECTOMY 01/2014 PROCEDURE: HISTORICAL CHOLECYSTECTOMY CERVICAL BIOPSY W/ LOOP ELECTRODE EXCISION 05/2015 PROCEDURE: OK CONIZATION CERVIX W/WO D&C RPR ELTRD EXC; COMMENT: wiliam 2-3, +endo margin NECK SURGERY 03/03/2017 PROCEDURE: HISTORICAL NECK SURGERY; COMMENT: c5-c6,c6-c7 anterior cervical disckectomy with allograft fusion c5-c6, c-6-c7 and anterior cervical plating using a Zevo plate Samantha Olivier [facility] ABDOMINAL SURGERY 02/17/2018 PROCEDURE: OK UNLISTED PROCEDURE ABDOMEN PERITONEUM & OMENTUM; COMMENT: Myomectomy, menorrhagia submucosal/intramural fibroid MYOMECTOMY 02/2018 PROCEDURE: OK LAPS MYOMECTOMY EXC 1-4 MYOMAS 250 GM/< [...] * Annual BMP Blood Test (05/06/2023) Pathologist [facility] Annual BMP Blood Test Abstracted [facility] Provider HEALTH MAINTENANCE Final Result * (ABNORMAL) Lipid panel (03/03/2018) [facility] LDL/HDL Ratio 3 0 - 4 Triglycerides 89 0 - 150 mg/dL Cholesterol 233(A) 0 - 200 mg/dL HDL 67 >=40 mg/dL LDL Cholesterol 149(A) 0 - 100 mg/dL Blood Venous blood specimen / Unknown [facility] Provider LAB BLOOD ORDERABLES Lucinda l Result * Cervical Cancer Screening: HPV (04/30/2017) [facility] Cervical Cancer Screening: HPV No interpretation , abstracted [facility] Provider HEALTH MAINTENANCE Final Result from Last 3 Months or Most Recently Relevant to Health Maintenance Advance Directives Documents on File Type Date Recorded Patient Guide Setter Expl anation Health Care Decision (hx) 12/30/2017 AD CHOW DIRECTIVE Health Care Decision (hx) 12/30/2017 AD CHOW DIRECTIVE Health Care Decision (hx) 12/30/2017 AD COHW DIRECTIVE Health Care Decision (hx) 12/30/2017 AD CHOW DIRECTIVE Health Care Decision (hx) 12/30/2017 AD CHOW DIRECTIVE Care Teams Sugar Controller Relationship Specialty Start Date End Date Elsa Fontaine MD PCP - General Internal Medicine 06/17/22
[2024-12-12 08:43] VITALS: PULSE 82
== END 2024-12-12 07:53 | disposition home or self-care (01) ==
LOC: HO.RESP 07:52
PROVIDERS: PCP Internal Medicine; Visit Provider Nurse Practitioner Family
DX: J45.909 Unspecified asthma, uncomplicated (principal)
CPT/HCPCS: 94010; 94640; 94727; 94729

== ENCOUNTER → 2024-12-12 07:55 | Outpatient (BNV) | payer OTHER, SELFPAY | PROVIDERS: PCP Internal Medicine; Visit Provider Hospitalist | DX: J45.909 Unspecified asthma, uncomplicated (principal) | CPT/HCPCS: 94060; 94727; 94729 ==

== ENCOUNTER 2025-01-09 08:55 | Outpatient (AMB) | payer OTHER, SELFPAY ==
--- NOTE | 2025-01-09 09:01 | MHC.OFFVIS ---
Vital Signs 01/09/25 09:02 Height 5 ft 1 in Weight 172 lb BMI 32.5 BP 132/70 Blood Pressure Location Rt brachial Position Sitting Pulse 68 Pulse Source Pulse Oximeter Pulse Oximetry (%) 98 Oxygen Delivery Method Room Air Intake Visit Reasons: Asthma Machine Feed Operator Required: No Statistical Developer: Statistical Developer offered & declined Accompanied by: Self / Same As Patient Allergies morphine Allergy (Severe, Verified 01/09/25 09:08) Hives polyethylene glycol [From Golytely] Allergy (Severe, Verified 01/09/25 09:08) Hives polyethylene glycol 3350 [From Golytely] Allergy (Severe, Verified 01/09/25 09:08) Hives potassium chloride [From Golytely] Allergy (Severe, Verified 01/09/25 09:08) Hives sodium [From Golytely] Allergy (Severe, Verified 01/09/25 09:08) Hives sodium bicarbonate [From Golytely] Allergy (Severe, Verified 01/09/25 09:08) Hives sodium chloride [From Golytely] Allergy (Severe, Verified 01/09/25 09:08) Hives sodium sulfate [From Golytely] Allergy (Severe, Verified 01/09/25 09:08) Hives Sulfa (Sulfonamide Antibiotics) Allergy (Severe, Verified 01/09/25 09:08) Hives cat dander Allergy (Verified 01/09/25 09:08) running nose sneezing Medication List - Last Reconciled 01/09/25 by Emily Avendano LPN albuterol sulfate 90 mcg/actuation 2 inhalations inhalation .every 4 hours PRN 30 days blood pressure monitor As directed budesonide-formoterol 160-4.5 mcg/actuation (Symbicort) 2 inhalations inhalation BID levalbuterol tartrate 45 mcg/actuation (Xopenex HFA) 2 inhalations inhalation Q4H PRN loratadine (Claritin) 10 mg PO DAILY HPI HPI Asthma: Details: Marimar is a pleasant 44 year old female, never smoker, with underlying asthma. Patient has been well controlled on Symbicort 160 mcg, Flonase and Claritin, requiring levalbuterol 2 times per week. Since the last visit, she was seen on 12/04 for URI treated with azithromycin. She reports improvements in symptoms however continues with occasional productive cough with clear sputum and intermittent wheezing with exertion. Today she presents to review PFT and RAST. [facility] Medical History (Updated 12/04/24 @ 13:52 by PATO Dickerson) URI (upper respiratory infection) Routine physical examination GERD (gastroesophageal reflux disease) Hypertension Anxiety Bacterial infection Fibroids Surgical History History of surgery History of neck surgery History of partial hysterectomy Hx of cholecystectomy History of appendectomy Hx of breast reduction, elective [place] teeth extracted Family History Mother Mental health disorder Substance abuse Cancer Thyroid disorder Hypertension Diabetes Asthma High cholesterol Father Substance abuse Hypertension High cholesterol Social History Household Members: Significant Other and Children Both parents involved: No Caregiver staying overnight: No Housing: House Are you a primary critical care specialist to a significant other at home: Yes Do you presently have visiting nurse or other home services: No 75 years or older and lives alone: No Alcohol intake: current Alcohol intake frequency: a few times a month Patient Tobacco Use Status: Never used Tobacco e-Cigarette/Vaping Use: Never Used Second Hand Smoke Exposure: Yes service: No Current occupational status: employed Current occupation: chief medical director Cognitive needs: No Hearing needs: No Vision needs: Yes (wear glasses) Physical Exam Vital Signs: Last Vital Signs Pulse 68 01/09/25 09:02 BP 132/70 01/09/25 09:02 Pulse Ox 98 01/09/25 09:02 Oxygen Delivery Method Room Air 01/09/25 09:02 BMI result Body Mass Index 32.5 Assessment & Plan Assessment & Plan (1) Asthma: Code(s): J45.909 - Unspecified asthma, uncomplicated Category: Medical (2) Environmental allergies: Code(s): Z91.09 - Other allergy status, other than to drugs and biological substances Category: Medical Plan Reviewed PFT which revealed no obstructive nor restrictive ventilatory defects identified. There was a significant response to bronchodilators noted. Lung volumes and diffusing capacity within normal limits. Patient does have evidence of small airways disease likely from underlying asthma. PFTs appear to be consistent with a history of asthma. IgE 389, RAST + to multiple environmental allergens. Discussed ways to minimize allergen exposure. At this time, advised consistent use of Symbicort and consider using SANDHYA more frequently to alleviate respiratory symptoms. If symptoms worsen as Spring approaches, will consider Singulair. All questions were answered and patient is in agreement of plan. Will follow up in 3-6 months or sooner if needed. Coding Level of Care Code Est Pt Level 4 (81178) Diagnoses Asthma J45.909 Environmental allergies Z91.09
[2025-01-09 09:02] VITALS: BP 132/70; PULSE 68; O2SAT 98; BMI 32.5
--- OUTSIDE RECORDS SUMMARY | 2025-01-09 09:35 | XMS_ITS | Clinical Summary ---
Author Organization [facility] ity Address [address] [place] [address] Care Team Providers Care Warper Creeler Name Role Phone Elsa Fontaine MD Primary Care Provider [phone] Allergies Active Allergy Reactions Criticality Noted Date [...] Name Administration Dates Next Due Hepatitis B (Vbjzbvg-M-Swlvp , Recombivax HB-Adult) 19yo and older 06/05/2007,01/03/2007,02/14/2004,07/23,08/16/1997,07/23/1997 [...] WISDOM TEETH EXTRACTION BREAST REDUCTION 12/2009 PROCEDURE: FL BREAST REDUCTION OTHER SURGICAL HISTORY 1291013 PROCEDURE: FL LAPS FULG/EXC OVARY VISCERA/PERITONEAL SURFACE; COMMENT: endometriosis - Dr Hugh Newell APPENDECTOMY 1291013 PROCEDURE: HISTORICAL APPENDECTOMY CHOLECYSTECTOMY 01/2014 PROCEDURE: HISTORICAL CHOLECYSTECTOMY CERVICAL BIOPSY W/ LOOP ELECTRODE EXCISION 05/2015 PROCEDURE: FL CONIZATION CERVIX W/WO D&C RPR ELTRD EXC; COMMENT: wiliam 2-3, +endo margin NECK SURGERY 03/03/2017 PROCEDURE: HISTORICAL NECK SURGERY; COMMENT: c5-c6,c6-c7 anterior cervical disckectomy with allograft fusion c5-c6, c-6-c7 and anterior cervical plating using a Zevo plate Samantha Olivier [facility] ABDOMINAL SURGERY 02/17/2018 PROCEDURE: FL UNLISTED PROCEDURE ABDOMEN PERITONEUM & OMENTUM; COMMENT: Myomectomy, menorrhagia submucosal/intramural fibroid MYOMECTOMY 02/2018 PROCEDURE: FL LAPS MYOMECTOMY EXC 1-4 MYOMAS 250 GM/< [...] COVID-19 Vaccine ( season) 2024 Influenza Vaccine (Season Ended) 2025 08/01/2019, 09/21/2018, 08/24/2017, Additional history exists Varicella Vaccines [...] * Annual BMP Blood Test (05/06/2023) Pathologist [facility] Annual BMP Blood Test Abstracted [facility] Provider HEALTH MAINTENANCE Final Result * (ABNORMAL) Lipid panel (03/03/2018) [facility] LDL/HDL Ratio 3 0 - 4 Triglycerides 89 0 - 150 mg/dL Cholesterol 233(A) 0 - 200 mg/dL HDL 67 >=40 mg/dL LDL Cholesterol 149(A) 0 - 100 mg/dL Blood Venous blood specimen / Unknown [facility] Provider LAB BLOOD ORDERABLES Lucinda l Result * Cervical Cancer Screening: HPV (04/30/2017) [facility] Cervical Cancer Screening: HPV No interpretation , abstracted [facility] Provider HEALTH MAINTENANCE Final Result from Last 3 Months or Most Recently Relevant to Health Maintenance Advance Directives Documents on File Type Date Recorded Patient Puff Iron Operator Expl anation Health Care Decision (hx) 12/30/2017 AD CHOW DIRECTIVE Health Care Decision (hx) 12/30/2017 AD CHOW DIRECTIVE Health Care Decision (hx) 12/30/2017 AD CHOW DIRECTIVE Health Care Decision (hx) 12/30/2017 AD CHOW DIRECTIVE Health Care Decision (hx) 12/30/2017 AD CHOW DIRECTIVE Care Teams Warper Creeler Relationship Specialty Start Date End Date Elsa Fontaine MD PCP - General Internal Medicine 06/17/22
--- OUTSIDE RECORDS SUMMARY | 2025-01-09 09:35 | XMS_ITS | Encounter Summary ---
Author Organization [facility] Address [address] [place] [address] Care Team Providers Care Thoracic Surgeon Name Role Phone Fatmata Handy MD Primary Care Provider Un available Elsa Fontaine MD Primary Care Provider [phone] Reason for Visit * Reason Comments E-prescribe Rx Request Encounter Details Date Type Department Care Team Description 04/17/[address] [address] Flaquita Choi MD [address] [place] [address] E-prescribe Rx Request Social History Tobacco Use Types Packs/Day Years [...] encounter Miscellaneous Notes * Telephone Encounter - Lucretia Mitchell M.A. - 04/18/2019 8:40 AM EDT Patient has upcoming appointment on 05/10/19, please consider refill to carry patient until apointment. * Telephone Encounter - Aiyana Laird - 04/17/2019 4:57 PM EDT WHEN WAS THE PATIENTS LAST ANNUAL DRAINMAN EXAM? 04/30/17 Does patient have an upcoming appointment? Yes 05/10/19 (THE MEDICATION REQUESTED IS ON THE MED LIST ABOVE) Did you check the Pharmacy information above?: YES Indicate how soon the patient needs the script: BJ Patient would like script to be: E-PRESCRIBED/FAXED TO PHARMACY Is the doctor here today?: NO Can the message wait until the doctor returns?: NO Has the patient been told that the prescription will not be filled until the end of the day? NO Payor: [employer] [place] / Plan: [employer] $0 [place] [employer] / Product Type: HMO [id number] documented in this encounter Plan of Treatment Not on file documented as of this encounter Visit Diagnoses Not on filedocumented in this encounter Care Teams Thoracic Surgeon Relationship Specialty Start Date End Date Fatmata Handy MD PCP - General 01/09/01 06/16/22 Elsa Fontaine MD [address] [place] [phone] PCP - General Internal Medicine 06/17/22 documented as of this encounter
--- OUTSIDE RECORDS SUMMARY | 2025-01-09 09:35 | XMS_ITS | Encounter Summary ---
Author Organization [facility] Address [address] [place] [address] Care Team Providers Care Vba Programmer Name Role Phone Fatmata Handy MD Primary Care Provider Un available Elsa Fontaine MD Primary Care Provider [phone] Encounter Details Date Type Department Care Team Description 10/01/2020 Lookback Coordinator Report Medical Records [address] [place] [address] Malvin Hood MD Social History Tobacco Use [...] on filedocumented in this encounter Care Teams Vba Programmer Relationship Specialty Start Date End Date Fatmata Handy MD PCP - General 01/09/01 06/16/22 Elsa Fontaine MD [address] [place] [address] PCP - General Internal Medicine 06/17/22 documented as of this encounter
--- OUTSIDE RECORDS SUMMARY | 2025-01-09 09:35 | XMS_ITS | Encounter Summary ---
Author Organization [facility] Address [address] [place] [address] Care Team Providers Care Boat Outfitting Supervisor Name Role Phone Fatmata Handy MD Primary Care Provider Un available Elsa Fontaine MD Primary Care Provider [phone] Encounter Details Date Type Department Care Team Description 01/03/2016 Pt. Non Urgent Medical Question PAPER TESTER - [address] [address] Ghislaine Ramírez MD Social History Tobacco Use [...] R.N. - 01/06/2016 9:52 AM EDTFrom: Marimar Elkin To: Ghislaine Ramírez MD Sent: 01/03/2016 3:49 [...] on filedocumented in this encounter Care Teams Boat Outfitting Supervisor Relationship Specialty Start Date End Date Fatmata Handy MD PCP - General 01/09/01 06/16/22 Elsa Fontaine MD [address] [place] [id number] PCP - General Internal Medicine 06/17/22 documented as of this encounter
--- OUTSIDE RECORDS SUMMARY | 2025-01-09 09:35 | XMS_ITS | Encounter Summary ---
Author Organization [facility] Address [address] [place] [address] Care Team Providers Care Giving Officer Name Role Phone Fatmata Handy MD Primary Care Provider Un available Elsa Fontaine MD Primary Care Provider Encounter Details Date Type Department Care Team Description 11/14/2015 Orders Only Medicine/Pediatrics - [address] [phone] Edgardo Ely PA-C Cervical radiculopathy (Primary Dx) [...] Edgardo Ely PA-C RADIOLOGY Performing Organization Address [facility] de Phone Number BILLY ROBERTS [...] abnormal soft tissue calcifications. Procedure Note Kim Early MD - 11/18/2015 Right shoulder. HISTORY: Pain. COMMENT: 4 views. There minimal degenerative changes in the a.c. joint.There is no fractures, dislocations or abnormal soft tissue calcifications. IMPRESSION: Minimal degenerative changes in the a.c. joint. Edgardo Ely PA-C RADIOLOGY Performing Organization Address [facility] de Phone Number BILLY ROBERTS OTHER EXTERNAL documented in this encounter Visit Diagnoses Diagnosis Cervical radiculopathy- Primary Brachial neuritis or radiculitis nos Cervical radiculopathy Brachial neuritis or radiculitis nos Cervical radiculopathy Brachial neuritis or radiculitis nos documented in this encounter Care Teams Giving Officer Relationship Specialty Start Date End Date Fatmata Handy MD PCP - General 01/09/01 06/16/22 Elsa Fontaine MD [address] [place] [id number] PCP - General Internal Medicine 06/17/22 documented as of this encounter
--- OUTSIDE RECORDS SUMMARY | 2025-01-09 09:35 | XMS_ITS | Encounter Summary ---
Author Organization [facility] Address [address] [place] [address] Care Team Providers Care Health Safety And Environment Manager Name Role Phone Fatmata Handy MD Primary Care Provider Un available Elsa Fontaine MD Primary Care Provider [phone] Encounter Details Date Type Department Care Team Description 07/28/2018 Field Underwriter Report Medical Records [address] [place] [address] Luis M Carrillo PA-C Social History Tobacco Use Types Packs/Day [...] on filedocumented in this encounter Care Teams Health Safety And Environment Manager Relationship Specialty Start Date End Date Fatmata Handy MD PCP - General 01/09/01 06/16/22 Elsa Fontaine MD [address] [place] [address] [phone] PCP - General Internal Medicine 06/17/22 documented as of this encounter
--- OUTSIDE RECORDS SUMMARY | 2025-01-09 09:35 | XMS_ITS | Encounter Summary ---
Author Organization [facility] Address [address] [place] [address] Care Team Providers Care Call Out Operator Name Role Phone Fatmata Handy MD Primary Care Provider Un available Elsa Fontaine MD Primary Care Provider [phone] Encounter Details Date Type Department Care Team Description 02/17/2016 Blocker Heated Metal Forms Report Medical Records [address] [place] [address] Ricky Jauregui MD Social History Tobacco Use [...] on filedocumented in this encounter Care Teams Call Out Operator Relationship Specialty Start Date End Date Fatmata Handy MD PCP - General 01/09/01 06/16/22 Elsa Fontaine MD [address] [place] [address] [phone] PCP - General Internal Medicine 06/17/22 documented as of this encounter
--- OUTSIDE RECORDS SUMMARY | 2025-01-09 09:35 | XMS_ITS | Encounter Summary ---
Author Organization [facility] Address [address] [place] [address] Care Team Providers Care Injection Operator Name Role Phone Elsa Fontaine MD Primary Care Provider [phone] Reason for Referral * EXTERNAL (Urgent) - Authorized/Booked Specialty Diagnoses / Procedures Referred By Carlos linares Referred To Contact Oncology/Hematology Procedures REFERRAL TO ONCOLOGY/HEMATOLOGY (IN NETWORK) Elsa Fontaine MD [address] [place] [address] Center, [facility] [address] [place] [address] Referral ID Status Reason Start Date Expiration Date V isits Requested Visits Authorized Authorized/B ooked 02/05/2023 05/07/2023 1 1 * Non SCAR[place]TT (Urgent) - Authorized/Booked Specialty Diagnoses / Procedures Referred By Carlos linares Referred To Contact Gastroenterology Procedures REFERRAL TO GASTROENTEROLOGY Elsa Fontaine MD [address] [place] [address] Gastro Spfld/175 [address] [facility] [address] [place] [address] Referral ID Status Reason Start Date Expiration Date V isits Requested Visits Authorized Authorized/B ooked 02/05/2023 02/05/2024 1 1 Reason for Visit * Reason Onset Date Comments TEST RESULTS 02/05/2023 Encounter Details Date Type Department Care Team Description 02/05/2023 Telephone Adult [facility] [address] [place], [place] [phone] Elsa Fontaine MD [address] [place], [place] [phone] TEST RESULTS Social History Tobacco Use Types [...] 10.8 x10-3/uL 02/17/2023 6:34 PM EDT [facility] RED BLOOD COUNT 4.1 3.8 - 4.8 x10-6/uL 02/17/2023 6:34 PM EDT [facility] Hemoglobin 12.6 11.5 - 16.0 g/dL 02/17/2023 6:34 PM EDT [facility] Hematocrit 38.6 35 - 47 % 02/17/2023 6:34 PM EDT [facility] MEAN CORPUSCULAR VOLUME 94.6 79 - 98 fL 02/17/2023 6:34 PM EDT [facility] HEMOGLOBIN 30.9 27 - 32 pg 02/17/2023 6:34 PM EDT [facility] HGB CONC 32.6 32 - 37 g/dL 02/17/2023 6:34 PM EDT [facility] RED CELL DISTRIBUTION WIDTH 11.9 11 - 15 % 02/17/2023 6:34 PM EDT [facility] PLT COUNT 381 130 - 400 x10-3/uL 02/17/2023 6:34 PM EDT [facility] MEAN PLATELET VOLUME 10.1 7 - 11 fL 02/17/2023 6:34 PM EDT [facility] NRBC % AUTO 0.0 <1 % 02/17/2023 6:34 PM EDT [facility] NEUTROPHILS % 55.4 % 02/17/2023 6:34 PM [...] COMPREHENSIVE METABOLIC PANEL (02/17/2023 3:21 PM EDT) [facility] GLUCOSE 76 70 - 100 mg/dL 02/17/2023 [...] 145 mEq/L 02/17/2023 7:49 PM EDT [facility] K 4.0 3.5 - 5.5 mmol/L 02/17/2023 7:49 PM EDT [facility] CL 104 96 - 110 mmol/L 02/17/2023 7:49 PM EDT [facility] CARBON DIOXIDE (CO2) 28 21 - 32 mmol/L 02/17/2023 7:49 PM EDT [facility] ANION GAP 7 3 - 11 02/17/2023 7:49 PM EDT [facility] CALCIUM 9.4 8.5 - 10.5 mg/dL 02/17/2023 7:49 PM EDT [facility] TOTAL PROTEIN (TP) 7.6 6.0 - 8.0 G/dL 02/17/2023 7:49 PM EDT [facility] Albumin 4.1 3.2 - 5.0 G/dL 02/17/2023 7:49 PM EDT [facility] BILIRUBIN TOTAL 0.3 0.0 - 1.4 mg/dL 02/17/2023 7:49 PM EDT [facility] SGOT 17 10 - 42 U/L 02/17/2023 7:49 PM EDT [facility] SGPT 24 10 - 60 U/L 02/17/2023 7:49 PM EDT [facility] ALK PHOS 60 42 - 121 U/L 02/17/2023 7:49 PM EDT [facility] 02/17/2023 3:21 PM EDT 02/17/2023 3:21 PM EDT Narrative [facility] - 02/17/2023 7:49 PM EDT Release to patient->Immediate Elsa Fontaine MD LAB [facility] documented in this encounter Visit Diagnoses Diagnosis Abnormal MRI- Primary Other nonspecific (abnormal) findings on radiological and other examinations of body structure documented in this encounter Care Teams Injection Operator Relationship Specialty Start Date End Date Elsa Fontaine MD [address] [place] [phone] PCP - General Internal Medicine 06/17/22 documented as of this encounter
--- OUTSIDE RECORDS SUMMARY | 2025-01-09 09:35 | XMS_ITS | Encounter Summary ---
Author Organization [facility] Address [address] [place] [address] Care Team Providers Care Regional Clinical Director Name Role Phone Fatmata Handy MD Primary Care Provider Un available Elsa Fontaine MD Primary Care Provider [phone] Encounter Details Date Type Department Care Team Description 05/30/2013 Night Triage Doc Medical Records [address] [place] [phone] Abstract, Provider Social History Tobacco Use Types [...] on filedocumented in this encounter Care Teams Regional Clinical Director Relationship Specialty Start Date End Date Fatmata Handy MD PCP - General 01/09/01 06/16/22 Elsa Fontaine MD [address] [place] [address] [phone] PCP - General Internal Medicine 06/17/22 documented as of this encounter
--- OUTSIDE RECORDS SUMMARY | 2025-01-09 09:35 | XMS_ITS | Encounter Summary ---
Author Organization [facility] Address [address] [place] [address] Care Team Providers Care Section Crews Activities Clerk Name Role Phone Fatmata Handy MD Primary Care Provider Un available Elsa Fontaine MD Primary Care Provider [phone] Encounter Details Date Type Department Care Team Description 03/20/2020 Pt. Non Urgent Medical Question General Surgery [address] [place] [address] Duy Cullen MD [address] [place] [address] Social History Tobacco Use Types Packs/Day Years [...] on filedocumented in this encounter Care Teams Section Crews Activities Clerk Relationship Specialty Start Date End Date Fatmata Handy MD PCP - General 01/09/01 06/16/22 Elsa Fontaine MD [address] [place] [id number] PCP - General Internal Medicine 06/17/22 documented as of this encounter
--- OUTSIDE RECORDS SUMMARY | 2025-01-09 09:35 | XMS_ITS | Encounter Summary ---
Author Organization [facility] Address [address] [place] [address] Care Team Providers Care It Operations Manager Name Role Phone Fatmata Handy MD Primary Care Provider Un available Elsa Fontaine MD Primary Care Provider [phone] Encounter Details Date Type Department Care Team Description 04/15/2015 Pt. Non Urgent Medical Question MATERIAL LIAISON - [address] [address] Ghislaine Ramírez MD Social History Tobacco Use [...] on filedocumented in this encounter Care Teams It Operations Manager Relationship Specialty Start Date End Date Fatmata Handy MD PCP - General 01/09/01 06/16/22 Elsa Fontaine MD [address] [place] [address] PCP - General Internal Medicine 06/17/22 documented as of this encounter
--- OUTSIDE RECORDS SUMMARY | 2025-01-09 09:35 | XMS_ITS | Encounter Summary ---
Author Organization [facility] Address [address] [place] [address] Care Team Providers Care Liaison Planner Name Role Phone Fatmata Handy MD Primary Care Provider Un available Elsa Fontaine MD Primary Care Provider [phone] Encounter Details Date Type Department Care Team Description 12/29/2018 Pt. Non Urgent Medic al Question Medicine/Pediatrics - [address] [id number] Marie Odell PA-C Social History Tobacco Use [...] on filedocumented in this encounter Care Teams Liaison Planner Relationship Specialty Start Date End Date Fatmata Handy MD PCP - General 01/09/01 06/16/22 Elsa Fontaine MD [address] [place] [address] PCP - General Internal Medicine 06/17/22 documented as of this encounter
--- OUTSIDE RECORDS SUMMARY | 2025-01-09 09:35 | XMS_ITS | Encounter Summary ---
Author Organization [facility] Address [address] [place] [address] Care Team Providers Care Framing Consultant Name Role Phone Fatmata Handy MD Primary Care Provider Un available Elsa Fontaine MD Primary Care Provider [phone] Encounter Details Date Type Department Care Team Description 12/31/2014 Refill MEDICAL PHYSICIST - [address] [address] Ghislaine Ramírez MD Social History Tobacco Use [...] encounter Miscellaneous Notes * Telephone Encounter - Ghislaine Ramírez MD - 01/01/2015 1:08 PM EDT Please have patient schedule yearly accelerator systems director exam. Ghislaine Ramírez MD * Telephone Encounter - Nova Marlow M.A. - 01/01/2015 8:44 AM EDT Please forward to correct pool. RX by [facility] * Telephone Encounter - Jesu Fady - 01/01/2015 7:57 AM EDTFrom: Marimar Granger To: Ghislaine Ramírez MD Sent: 12/31/2014 7:46 PM EDT Subject: Medication Renewal Request Original authorizing provider: Ghislaine Ramírez MD Marimar Granger would like a refill of the following medications: norethindrone-ethinyl estradiol (NECON , 28,) 1-35 MG-MCG per tablet [Ghislaine Ramírez MD] Preferred pharmacy: [id number] - [place], [place] - [address] [place] [address] AT [facility] Comment: documented in this encounter Plan of Treatment Not on file documented as of this encounter Visit Diagnoses Not on filedocumented in this encounter Care Teams Framing Consultant Relationship Specialty Start Date End Date Fatmata Handy MD PCP - General 01/09/01 06/16/22 Elsa Fontaine MD [address] [place] [phone] PCP - General Internal Medicine 06/17/22 documented as of this encounter
--- OUTSIDE RECORDS SUMMARY | 2025-01-09 09:35 | XMS_ITS | Encounter Summary ---
Author Organization [facility] Address [address] [place] [address] Care Team Providers Care Avionics Systems Engineer Name Role Phone Fatmata Handy MD Primary Care Provider Un available Elsa Fontaine MD Primary Care Provider [phone] Encounter Details Date Type Department Care Team Description 02/12/2022 Customer Relationship Specialist Report Medical Records [address] [place] [address] Malvin Hood MD Social History Tobacco Use [...] on filedocumented in this encounter Care Teams Avionics Systems Engineer Relationship Specialty Start Date End Date Fatmata Handy MD PCP - General 01/09/01 06/16/22 Elsa Fontaine MD [address] [place] [address] [phone] PCP - General Internal Medicine 06/17/22 documented as of this encounter
--- OUTSIDE RECORDS SUMMARY | 2025-01-09 09:35 | XMS_ITS | Encounter Summary ---
Author Organization [facility] Address [address] [place] [address] Care Team Providers Care Purification Operator Helper Name Role Phone Fatmata Handy MD Primary Care Provider Un available Elsa Fontaine MD Primary Care Provider [phone] Reason for Visit * Reason Onset Date Comments Abnormal Mammogram 05/26/2016 Encounter Details Date Type Department Care Team Description 05/26/2016 Telephone Radiology - [address] [address] Radiology, Authorizing Abnormal Mammogram Social History Tobacco [...] on filedocumented in this encounter Care Teams Purification Operator Helper Relationship Specialty Start Date End Date Fatmata Handy MD PCP - General 01/09/01 06/16/22 Elsa Fontaine MD [address] [place] [phone] PCP - General Internal Medicine 06/17/22 documented as of this encounter
--- OUTSIDE RECORDS SUMMARY | 2025-01-09 09:35 | XMS_ITS | Encounter Summary ---
Author Organization [facility] Address [address] [place] [address] Care Team Providers Care Telephone Lines Repairer Name Role Phone Elsa Fontaine MD Primary Care Provider [phone] Encounter Details Date Type Department Care Team Description 04/15/2023 Heel Seat Fitter Report Medical Records [address] [place] [address] Malvin Hood MD Social History Tobacco Use [...] on filedocumented in this encounter Care Teams Telephone Lines Repairer Relationship Specialty Start Date End Date Elsa Fontaine MD [address] [place] [address] PCP - General Internal Medicine 06/17/22 documented as of this encounter
--- OUTSIDE RECORDS SUMMARY | 2025-01-09 09:35 | XMS_ITS | Encounter Summary ---
Author Organization [facility] Address [address] [place] [address] Care Team Providers Care Block Hacker Name Role Phone Fatmata Handy MD Primary Care Provider Un available Elsa Fontaine MD Primary Care Provider Encounter Details Date Type Department Care Team Description 05/13/2019 Hospital Medical Records [address] [place] [address] Aliyah Ly Social History Tobacco Use Types [...] on filedocumented in this encounter Care Teams Block Hacker Relationship Specialty Start Date End Date Fatmata Handy MD PCP - General 01/09/01 06/16/22 Elsa Fontaine MD [address] [place] [phone] PCP - General Internal Medicine 06/17/22 documented as of this encounter
--- OUTSIDE RECORDS SUMMARY | 2025-01-09 09:35 | XMS_ITS | Encounter Summary ---
Author Organization [facility] Address [address] [place] [address] Care Team Providers Care School Traffic Guard Name Role Phone Fatmata Handy MD Primary Care Provider Un available Elsa Fontaine MD Primary Care Provider [phone] Encounter Details Date Type Department Care Team Description 11/18/2015 Transfer Records Medical Records [address] [place] [address] Abstract, Provider Social History Tobacco Use Types [...] on filedocumented in this encounter Care Teams School Traffic Guard Relationship Specialty Start Date End Date Fatmata Handy MD PCP - General 01/09/01 06/16/22 Elsa Fontaine MD [address] [place] [address] [phone] PCP - General Internal Medicine 06/17/22 documented as of this encounter
--- OUTSIDE RECORDS SUMMARY | 2025-01-09 09:35 | XMS_ITS | Encounter Summary ---
Author Organization [facility] Address [address] [place] [address] Care Team Providers Care Provider Contracting Consultant Name Role Phone Fatmata Handy MD Primary Care Provider Un available Elsa Fontaine MD Primary Care Provider [phone] Encounter Details Date Type Department Care Team Description 05/13/2019 Hospital Medical Records [address] [place] [address] Devyn French MD Social History Tobacco Use [...] on filedocumented in this encounter Care Teams Provider Contracting Consultant Relationship Specialty Start Date End Date Fatmata Handy MD PCP - General 01/09/01 06/16/22 Elsa Fontaine MD [address] [place] [phone] PCP - General Internal Medicine 06/17/22 documented as of this encounter
--- OUTSIDE RECORDS SUMMARY | 2025-01-09 09:36 | XMS_ITS | Encounter Summary ---
Author Organization [facility] Address [address] [place] [address] Care Team Providers Care Boss Miner Name Role Phone Fatmata Handy MD Primary Care Provider Un available Elsa Fontaine MD Primary Care Provider [phone] Encounter Details Date Type Department Care Team Description 01/02/2013 Hospital Medical Records [address] [place] [address] Mercy Rangel NP Social History Tobacco Use Types Packs/Day Years [...] on filedocumented in this encounter Care Teams Boss Miner Relationship Specialty Start Date End Date Fatmata Handy MD PCP - General 01/09/01 06/16/22 Elsa Fontaine MD [address] [place] [address] [phone] PCP - General Internal Medicine 06/17/22 documented as of this encounter
--- OUTSIDE RECORDS SUMMARY | 2025-01-09 09:36 | XMS_ITS | Encounter Summary ---
Author Organization [facility] Address [address] [place] [address] Care Team Providers Care Medicine Technologist Name Role Phone Fatmata Handy MD Primary Care Provider Un available Elsa Fontaine MD Primary Care Provider [phone] Encounter Details Date Type Department Care Team Description 01/03/2013 Hospital Medical Records [address] [place] [address] Ghislaine Ramírez MD Social History Tobacco Use [...] on filedocumented in this encounter Care Teams Medicine Technologist Relationship Specialty Start Date End Date Fatmata Handy MD PCP - General 01/09/01 06/16/22 Elsa Fontaine MD [address] [place] [address] [phone] PCP - General Internal Medicine 06/17/22 documented as of this encounter
--- OUTSIDE RECORDS SUMMARY | 2025-01-09 09:36 | XMS_ITS | Encounter Summary ---
Author Organization [facility] Address [address] [place] [address] Care Team Providers Care Real Estate Account Executive Name Role Phone Fatmata Handy MD Primary Care Provider Un available Elsa Fontaine MD Primary Care Provider [phone] Encounter Details Date Type Department Care Team Description 03/30/2014 Transcribing Operators Supervisor Report Medical Records [address] [place] [address] Jimmy Gore MD Social History Tobacco Use [...] on filedocumented in this encounter Care Teams Real Estate Account Executive Relationship Specialty Start Date End Date Fatmata Handy MD PCP - General 01/09/01 06/16/22 Elsa Fontaine MD [address] [place] [address] [phone] PCP - General Internal Medicine 06/17/22 documented as of this encounter
--- OUTSIDE RECORDS SUMMARY | 2025-01-09 09:36 | XMS_ITS | Encounter Summary ---
Author Organization [facility] Address [address] [place] [address] Care Team Providers Care Road Supervisor Name Role Phone Fatmata Handy MD Primary Care Provider Un available Elsa Fontaine MD Primary Care Provider [phone] Encounter Details Date Type Department Care Team Description 01/21/[address]arer Report Medical Records [address] [place] [address] Abstract, Provider Social History Tobacco Use Types [...] on filedocumented in this encounter Care Teams Road Supervisor Relationship Specialty Start Date End Date Fatmata Handy MD PCP - General 01/09/01 06/16/22 Elsa Fontaine MD [address] [place] [address] [phone] PCP - General Internal Medicine 06/17/22 documented as of this encounter
--- OUTSIDE RECORDS SUMMARY | 2025-01-09 09:36 | XMS_ITS | Encounter Summary ---
Author Organization [facility] Address [address] [place] [address] Care Team Providers Care Hand Spinner Name Role Phone Fatmata Handy MD Primary Care Provider Un available Elsa Fontaine MD Primary Care Provider [phone] Encounter Details Date Type Department Care Team Description 11/02/2012 Hospital Medical Records [address] [place] [address] Jimmy Olguin MD Social History Tobacco Use [...] on filedocumented in this encounter Care Teams Hand Spinner Relationship Specialty Start Date End Date Fatmata Handy MD PCP - General 01/09/01 06/16/22 Elsa Fontaine MD [address] [place] [address] PCP - General Internal Medicine 06/17/22 documented as of this encounter
--- OUTSIDE RECORDS SUMMARY | 2025-01-09 09:36 | XMS_ITS | Encounter Summary ---
Author Organization [facility] Address [address] [place] [address] Care Team Providers Care Interface Control Officer Name Role Phone Fatmata Handy MD Primary Care Provider Un available Elsa Fontaine MD Primary Care Provider [phone] Encounter Details Date Type Department Care Team Description 01/24/2019 Hospital Medical Records [address] [place] [address] Duy Cullen MD [address] [place] [address] Social History Tobacco Use Types Packs/Day Years [...] on filedocumented in this encounter Care Teams Interface Control Officer Relationship Specialty Start Date End Date Fatmata Handy MD PCP - General 01/09/01 06/16/22 Elsa Fontaine MD [address] [place] [phone] PCP - General Internal Medicine 06/17/22 documented as of this encounter
--- OUTSIDE RECORDS SUMMARY | 2025-01-09 09:36 | XMS_ITS | Encounter Summary ---
Author Organization [facility] Address [address] [place] [address] Care Team Providers Care Veterinary Technician Assistant Name Role Phone Fatmata Handy MD Primary Care Provider Un available Elsa Fontaine MD Primary Care Provider [phone] Encounter Details Date Type Department Care Team Description 03/03/2017 Hospital Medical Records [address] [place] [address] Diamante Olivier MD Social History Tobacco Use [...] filedocumented in this encounter Care Teams Veterinary Technician Assistant Relationship Specialty Start Date End Date Fatmata Handy MD PCP - General 01/09/01 06/16/22 Elsa Fontaine MD [address] [place] [phone] PCP - General Internal Medicine 06/17/22 documented as of this encounter
--- OUTSIDE RECORDS SUMMARY | 2025-01-09 09:36 | XMS_ITS | Encounter Summary ---
Author Organization [facility] Address [address] [place] [address] Care Team Providers Care Sand Plant Attendant Name Role Phone Fatmata Handy MD Primary Care Provider Un available Elsa Fontaine MD Primary Care Provider [phone] Encounter Details Date Type Department Care Team Description 04/10/2021 Pt. Non Urgent Medic al Question Medicine/Pediatrics - [address] [phone] Fatmata Handy MD Social History Tobacco Use [...] [facility] get a [facility] a local [facility]. When they asked for my allergies, I stated that I was allergic to the go-lytely preparation. They stated that I could not receive the Pfizer or the Moderna, only the J&J. Is this correct? Thank you, Marimar documented in this encounter Plan of Treatment Not on file documented as of this encounter Visit Diagnoses Not on filedocumented in this encounter Care Teams Sand Plant Attendant Relationship Specialty Start Date End Date Fatmata Handy MD PCP - General 01/09/01 06/16/22 Elsa Fontaine MD [address] [place] [phone] PCP - General Internal Medicine 06/17/22 documented as of this encounter
--- OUTSIDE RECORDS SUMMARY | 2025-01-09 09:36 | XMS_ITS | Encounter Summary ---
Author Organization [facility] Address [address] [place] [address] Care Team Providers Care Billing Customer Service Representative Name Role Phone Fatmata Handy MD Primary Care Provider Un available Elsa Fontaine MD Primary Care Provider [phone] Encounter Details Date Type Department Care Team Description 06/12/2013 Night Triage Doc Medical Records [address] [place] [address] Abstract, Provider Social History Tobacco Use Types [...] on filedocumented in this encounter Care Teams Billing Customer Service Representative Relationship Specialty Start Date End Date Fatmata Handy MD PCP - General 01/09/01 06/16/22 Elsa Fontaine MD [address] [place] [phone] PCP - General Internal Medicine 06/17/22 documented as of this encounter
--- OUTSIDE RECORDS SUMMARY | 2025-01-09 09:36 | XMS_ITS | Encounter Summary ---
Author Organization [facility] Address [address] [place] [address] Care Team Providers Care Printed Circuit Board Assembler Name Role Phone Fatmata Handy MD Primary Care Provider Un available Elsa Fontaine MD Primary Care Provider [phone] Encounter Details Date Type Department Care Team Description 08/18/2013 Release of Information Medical Records [address] [place] [address] Abstract, Provider Social History Tobacco Use Types [...] on filedocumented in this encounter Care Teams Printed Circuit Board Assembler Relationship Specialty Start Date End Date Fatmata Handy MD PCP - General 01/09/01 06/16/22 Elsa Fontaine MD [address] [place] [phone] PCP - General Internal Medicine 06/17/22 documented as of this encounter
--- OUTSIDE RECORDS SUMMARY | 2025-01-09 09:36 | XMS_ITS | Encounter Summary ---
Author Organization [facility] Address [address] [place] [address] Care Team Providers Care Fur Trimming Machine Operator Name Role Phone Fatmata Handy MD Primary Care Provider Un available Elsa Fontiane MD Primary Care Provider [phone] Encounter Details Date Type Department Care Team Description 11/22/2012 Furniture Cleaner Report Medical Records [address] [place] [address] Samuel Almodovar MD Social History Tobacco Use [...] on filedocumented in this encounter Care Teams Fur Trimming Machine Operator Relationship Specialty Start Date End Date Fatmata Handy MD PCP - General 01/09/01 06/16/22 Elsa Fontaine MD [address] [place], [place] [phone] PCP - General Internal Medicine 06/17/22 documented as of this encounter
--- OUTSIDE RECORDS SUMMARY | 2025-01-09 09:36 | XMS_ITS | Encounter Summary ---
Author Organization [facility] Address [address] [place] [address] Care Team Providers Care Inside Sales Trainer Name Role Phone Fatmata Handy MD Primary Care Provider Un available Elsa Fontaine MD Primary Care Provider [phone] Encounter Details Date Type Department Care Team Description 10/18/2012 Night Triage Doc Medical Records [address] [place] [address] Abstract, Provider Social History Tobacco Use Types [...] on filedocumented in this encounter Care Teams Inside Sales Trainer Relationship Specialty Start Date End Date Fatmata Handy MD PCP - General 01/09/01 06/16/22 Elsa Fontaine MD [address] [place] [phone] PCP - General Internal Medicine 06/17/22 documented as of this encounter
--- OUTSIDE RECORDS SUMMARY | 2025-01-09 09:36 | XMS_ITS | Encounter Summary ---
Author Organization [facility] Address [address] [place] [address] Care Team Providers Care Perpetual Inventory Clerk Name Role Phone Fatmata Handy MD Primary Care Provider Un available Elsa Fontaine MD Primary Care Provider [phone] Encounter Details Date Type Department Care Team Description 05/14/2019 Hospital Medical Records [address] [place] [address] Tiffani Chavez, DO [address] [place] [address] Social History Tobacco Use Types Packs/Day Years [...] on filedocumented in this encounter Care Teams Perpetual Inventory Clerk Relationship Specialty Start Date End Date Fatmata Handy MD PCP - General 01/09/01 06/16/22 Elsa Fontaine MD [address] [place] [address] PCP - General Internal Medicine 06/17/22 documented as of this encounter
--- OUTSIDE RECORDS SUMMARY | 2025-01-09 09:36 | XMS_ITS | Encounter Summary ---
Author Organization [facility] Address [address] [place] [address] Care Team Providers Care Therapeutic Recreation Leader Name Role Phone Fatmata Handy MD Primary Care Provider Un available Elsa Fontaine MD Primary Care Provider [phone] Encounter Details Date Type Department Care Team Description 06/12/2016 Supplier Quality Engineering Manager Report Medical Records [address] [place] [address] Usha Jessica Social History Tobacco Use Types [...] on filedocumented in this encounter Care Teams Therapeutic Recreation Leader Relationship Specialty Start Date End Date Fatmata Handy MD PCP - General 01/09/01 06/16/22 Elsa Fontaine MD [address] [place] [address] [phone] PCP - General Internal Medicine 06/17/22 documented as of this encounter
--- OUTSIDE RECORDS SUMMARY | 2025-01-09 09:36 | XMS_ITS | Encounter Summary ---
Author Organization [facility] Address [facility] [place] [address] Care Team Providers Care Public Space Attendant Name Role Phone Fatmata Handy MD Primary Care Provider Un available Elsa Fontaine MD Primary Care Provider [phone] Encounter Details Date Type Department Care Team Description 12/14/2017 Telephone OBGYN - [address] [phone] Sierra Navarrete DO Social History Tobacco Use [...] myomectomy has been scheduled on 02/08/2018 at [facility] with Dr. Navarrete. Patient has been notified by phone and a letter has been sent to her. MD calendar has been updated and schedulers have been notified. Forward [facility] report. AM * Telephone Encounter - Sierra Navarrete DO - 12/14/2017 11:26 AM EST TREE CUTTER SURGICAL BOOKING WORKSHEET 12/14/2017 Patient's Name: Marimar Jalloh : 1980 Payor information: Payor: [facility] / Plan: HMO $0 [employer] / Product Type: HMO [id number] Allergies: Allergies Allergen Reactions ??? Sulfa Drugs Hives/Urticaria ??? Golytely [Colyte With Flavor] Hives/Urticaria and Swelling/Edema ??? Morphine Sulfate (Pf) Hives/Urticaria LMP: No LMP recorded. Patient is not currently having periods (Reason: IUD- uncertain date). Diagnosis: Menorrhgia, firboid Surgery Procedure Planned: robotic myomectomy Special Instructions/Equipment needed: Type of Anesthesia: gen Stay: Daystay Location:[facility] Cisco Engineer Needed? YES, Jarrell Time Needed: 2 Urgency: elective Medicaid Sterilization (within 30 days - 180 days) and/or Medicare HI-1 form signed, if needed? N\ADate signed? Medical Clearance? NO Pre Op SHOEMAKING CUTTER visit: YES Pap Needed at Pre Op Visit? NO No orders of the defined types were placed in this encounter. documented in this encounter Plan of Treatment Not on file documented as of this encounter Visit Diagnoses Not on filedocumented in this encounter Care Teams Public Space Attendant Relationship Specialty Start Date End Date Fatmata Handy MD PCP - General 01/09/01 06/16/22 Elsa Fontaine MD [address] [place] [phone] PCP - General Internal Medicine 06/17/22 documented as of this encounter
--- OUTSIDE RECORDS SUMMARY | 2025-01-09 09:36 | XMS_ITS | Encounter Summary ---
Author Organization [facility] Address [address] [place] [address] Care Team Providers Care Sagger Filler Name Role Phone Fatmata Handy MD Primary Care Provider Un available Elsa Fontaine MD Primary Care Provider [phone] Encounter Details Date Type Department Care Team Description 11/27/2013 Hospital Medical Records [address] [place] [address] Francis Fraser MD Social History Tobacco Use [...] on filedocumented in this encounter Care Teams Sagger Filler Relationship Specialty Start Date End Date Fatmata Handy MD PCP - General 01/09/01 06/16/22 Elsa Fontaine MD [address] [place] [address] [phone] PCP - General Internal Medicine 06/17/22 documented as of this encounter
--- OUTSIDE RECORDS SUMMARY | 2025-01-09 09:36 | XMS_ITS | Encounter Summary ---
Author Organization [facility] Address [address] [place] [address] Care Team Providers Care Bridge Painter Helper Name Role Phone Fatmata Handy MD Primary Care Provider Un available Elsa Fontaine MD Primary Care Provider [phone] Encounter Details Date Type Department Care Team Description 11/09/2012 Hospital Medical Records [address] [place] [address] Robe Newell MD Social History Tobacco Use Types Packs/Day [...] on filedocumented in this encounter Care Teams Bridge Painter Helper Relationship Specialty Start Date End Date Fatmata Handy MD PCP - General 01/09/01 06/16/22 Elsa Fontaine MD [address] [place] [address] [phone] PCP - General Internal Medicine 06/17/22 documented as of this encounter
--- OUTSIDE RECORDS SUMMARY | 2025-01-09 09:36 | XMS_ITS | Encounter Summary ---
Author Organization [facility] Address [address] [place] [address] Care Team Providers Care Veterinary Bacteriologist Name Role Phone Fatmata Handy MD Primary Care Provider Un available Elsa Fontaine MD Primary Care Provider [phone] Encounter Details Date Type Department Care Team Description 03/18/2019 SCAN Medical Records [address] [place] [address] Abstract, Provider Social History Tobacco Use Types [...] filedocumented in this encounter Care Teams Veterinary Bacteriologist Relationship Specialty Start Date End Date Fatmata Handy MD PCP - General 01/09/01 06/16/22 Elsa Fontaine MD [address] [place] [address] [phone] PCP - General Internal Medicine 06/17/22 documented as of this encounter
--- OUTSIDE RECORDS SUMMARY | 2025-01-09 09:36 | XMS_ITS | Encounter Summary ---
Author Organization [facility] Address [address] [place] [address] Care Team Providers Care Beater Room Supervisor Name Role Phone Fatmata Handy MD Primary Care Provider Un available Elsa Fontaine MD Primary Care Provider [phone] Encounter Details Date Type Department Care Team Description 04/14/2017 Senior Restaurant Manager Report Medical Records [address] [place] [address] Diamante Olivier MD Social History Tobacco Use [...] on filedocumented in this encounter Care Teams Beater Room Supervisor Relationship Specialty Start Date End Date Fatmata Handy MD PCP - General 01/09/01 06/16/22 Elsa Fontaine MD [address] [place] [address] [phone] PCP - General Internal Medicine 06/17/22 documented as of this encounter
--- OUTSIDE RECORDS SUMMARY | 2025-01-09 09:36 | XMS_ITS | Encounter Summary ---
Author Organization [facility] Address [address] [place] [address] Care Team Providers Care Surface Plate Inspector Name Role Phone Fatmata Handy MD Primary Care Provider Un available Elsa Fontaine MD Primary Care Provider [phone] Encounter Details Date Type Department Care Team Description 06/05/2016 Pt. Non Urgent Medic al Question Medicine/Pediatrics - [address] [phone] Edgardo Ely PA-C Social History Tobacco Use [...] as of this encounter Progress Notes * Lorraine Davis M.A. - 06/08/2016 11:25 AM EDTFrom: Marimar Granger To: Edgardo Ely PA-C Sent: 06/05/2016 5:34 PM EDT Subject: Question regarding ULTRASOUND OF ABDOMEN Thank you for letting me know. So you had said there were some red blood cells in my urine at the office visit. Any idea what could cause that? And what would the next step be if my low grade fever & pain do not go away? Thank you, Marimar documented in this encounter Plan of Treatment Not on file documented as of this encounter Visit Diagnoses Not on filedocumented in this encounter Care Teams Surface Plate Inspector Relationship Specialty Start Date End Date Fatmata Handy MD PCP - General 01/09/01 06/16/22 Elsa Fontaine MD [address] [place] [id number] PCP - General Internal Medicine 06/17/22 documented as of this encounter
--- OUTSIDE RECORDS SUMMARY | 2025-01-09 09:36 | XMS_ITS | Encounter Summary ---
Author Organization [facility] Address [address] [place] [address] Care Team Providers Care Construction Consultant Name Role Phone Fatmata Handy MD Primary Care Provider Un available Elsa Fontaine MD Primary Care Provider [phone] Encounter Details Date Type Department Care Team Description 11/24/2013 Hospital Medical Records [address] [place] [address] Francis Fraser MD Social History Tobacco Use [...] on filedocumented in this encounter Care Teams Construction Consultant Relationship Specialty Start Date End Date Fatmata Handy MD PCP - General 01/09/01 06/16/22 Elas Fontaine MD [address] [place] [id number] PCP - General Internal Medicine 06/17/22 documented as of this encounter
--- OUTSIDE RECORDS SUMMARY | 2025-01-09 09:36 | XMS_ITS | Encounter Summary ---
Author Organization [facility] Address [address] [place] [address] Care Team Providers Care Roll Shop Supervisor Name Role Phone Fatmata Handy MD Primary Care Provider Un available Elsa Fontaine MD Primary Care Provider [phone] Encounter Details Date Type Department Care Team Description 03/30/2017 Quality Specialist Report Medical Records [address] [place] [address] Ricky Jauregui MD Social History Tobacco Use [...] on filedocumented in this encounter Care Teams Roll Shop Supervisor Relationship Specialty Start Date End Date Fatmata Handy MD PCP - General 01/09/01 06/16/22 Elsa Fontaine MD [address] [place] [address] [phone] PCP - General Internal Medicine 06/17/22 documented as of this encounter
--- OUTSIDE RECORDS SUMMARY | 2025-01-09 09:36 | XMS_ITS | Encounter Summary ---
Author Organization [facility] Address [address] [place] [address] Care Team Providers Care Pay Station Department Manager Name Role Phone Elsa Fontaine MD Primary Care Provider Encounter Details Date Type Department Care Team Description 06/01/2023 Orders Only Medical Records [address] [place] [address] Uvaldo Garcia MD [address] [place] [address] Social History Tobacco Use Types Packs/Day Years [...] on filedocumented in this encounter Care Teams Pay Station Department Manager Relationship Specialty Start Date End Date Elsa Fontaine MD [address] [place] [address] PCP - General Internal Medicine 06/17/22 documented as of this encounter
--- OUTSIDE RECORDS SUMMARY | 2025-01-09 09:36 | XMS_ITS | Encounter Summary ---
Author Organization [facility] Address [address] [place] [address] Care Team Providers Care Captain/Airline Pilot Name Role Phone Fatmata Handy MD Primary Care Provider Un available Elsa Fontaine MD Primary Care Provider [phone] Encounter Details Date Type Department Care Team Description 05/10/2018 Gas Or Petroleum Operator Report Medical Records [address] [place] [address] Ricky Jauregui MD Social History Tobacco Use [...] on filedocumented in this encounter Care Teams Captain/Airline Pilot Relationship Specialty Start Date End Date Fatmata Handy MD PCP - General 01/09/01 06/16/22 Elsa Fontaine MD [address] [place] [address] [id number] PCP - General Internal Medicine 06/17/22 documented as of this encounter
--- OUTSIDE RECORDS SUMMARY | 2025-01-09 09:36 | XMS_ITS | Encounter Summary ---
Author Organization [facility] Address [address] [place] [address] Care Team Providers Care Cnc Machinist 2Nd Shift Name Role Phone Fatmata Handy MD Primary Care Provider Un available Elsa Fontaine MD Primary Care Provider Reason for Visit * Reason Onset Date Comments Form 04/05/2019 Short Term Disab ility-[facility] Encounter Details Date Type Department Care Team Description 04/05/2019 Telephone GAME AUTHOR - [address] [address] Sierra Navarrete DO Form (Short Term Disability-[facility]) Social History Tobacco Use Types Packs/Day Years [...] encounter Miscellaneous Notes * Telephone Encounter - [facility] - 04/05/2019 4:15 PM EDT Form received from (who/facility name) [facility]?? What is the form for Short Term Disability Requires completion/signature. Please return completed form to [facility] via fax Form faxed over to OB clinical at [phone], confirmation received documented in this encounter Plan of Treatment Not on file documented as of this encounter Visit Diagnoses Not on filedocumented in this encounter Care Teams Cnc Machinist 2Nd Shift Relationship Specialty Start Date End Date Fatmata Handy MD PCP - General 01/09/01 06/16/22 Elsa Fontaine MD [address] [place] [id number] PCP - General Internal Medicine 06/17/22 documented as of this encounter
--- OUTSIDE RECORDS SUMMARY | 2025-01-09 09:36 | XMS_ITS | Encounter Summary ---
Author Organization [facility] Address [address] [place] [address] Care Team Providers Care Stoneworker Name Role Phone Fatmata Handy MD Primary Care Provider Un available Elsa Fontaine MD Primary Care Provider [phone] Encounter Details Date Type Department Care Team Description 01/10/2020 Refill CORPORATE ACCOUNT EXECUTIVE - [address] [address] Fariba Celis CN [address] [place] [address] Social History Tobacco Use Types Packs/Day Years [...] on filedocumented in this encounter Care Teams Stoneworker Relationship Specialty Start Date End Date Fatmata Handy MD PCP - General 01/09/01 06/16/22 Elsa Fontaine MD [address] [place] [id number] PCP - General Internal Medicine 06/17/22 documented as of this encounter
--- OUTSIDE RECORDS SUMMARY | 2025-01-09 09:36 | XMS_ITS | Encounter Summary ---
Author Organization [facility] Address [address] [place] [address] Care Team Providers Care E Commerce Marketing Analyst Name Role Phone Fatmata Handy MD Primary Care Provider Un available Elsa Fontaine MD Primary Care Provider [phone] Encounter Details Date Type Department Care Team Description 06/20/2013 Instrumentation Controls Engineer Report Medical Records [address] [place], [place] [phone] [place] [address] [id number] Social History Tobacco Use Types Packs/Day Years [...] on filedocumented in this encounter Care Teams E Commerce Marketing Analyst Relationship Specialty Start Date End Date Fatmata Handy MD PCP - General 01/09/01 06/16/22 Elsa Fontaine MD [address] [place] [address] PCP - General Internal Medicine 06/17/22 documented as of this encounter
--- OUTSIDE RECORDS SUMMARY | 2025-01-09 09:36 | XMS_ITS | Encounter Summary ---
Author Organization [facility] Address [address] [place] [address] Care Team Providers Care Supervisor Die Casting Name Role Phone Fatmata Handy MD Primary Care Provider Un available Elsa Fontaine MD Primary Care Provider [phone] Reason for Visit * Reason Comments E-prescribe Rx Request Encounter Details Date Type Department Care Team Description 10/17/2019 Refill Medicine/Pediatrics - [address] [phone] Edgardo Ely PA-C E-prescribe Rx Request Social History Tobacco Use [...] encounter Miscellaneous Notes * Telephone Encounter - Jaymie Gil R.N. - 10/17/2019 11:22 AM EST Last refill;07/19/19 ORDER PENDED * Telephone Encounter - Quita Snell - 10/17/2019 11:17 AM EST Patient would like script to be: E-PRESCRIBED/FAXED TO PHARMACY WHEN WAS THE PATIENT'S LAST APPOINTMENT IN ADULT MEDICINE? 08/24/19 WHEN WAS THE LAST TIME THE PATIENT SAW THEIR PCP? 07/19/19 Does patient have an upcoming appointment? No-patient refused appointment, will call back to book appointment (THE MEDICATION REQUESTED IS ON THE MED LIST ABOVE) All of the medications requested were on the CURRENT MEDS list Did you check the Pharmacy information above?: YES Patient wants: 90 -day supply Is this a mail order prescription request ? NO If the refill is from a FAXED refill request what is the RX # listed on the fax? N/A Patients current insurance carrier is: Payor: Sevence DACONO / Plan: [employer] $0 [facility] / Product Type: HMO [id number] documented in this encounter Plan of Treatment Not on file documented as of this encounter Visit Diagnoses Not on filedocumented in this encounter Care Teams Supervisor Die Casting Relationship Specialty Start Date End Date Fatmata Handy MD PCP - General 01/09/01 06/16/22 Elsa Fontaine MD [address] [place] [phone] PCP - General Internal Medicine 06/17/22 documented as of this encounter
--- OUTSIDE RECORDS SUMMARY | 2025-01-09 09:36 | XMS_ITS | Encounter Summary ---
Author Organization [facility] Address [address] [place] [address] Care Team Providers Care Industrial Tech Instructor Name Role Phone Elsa Fontaine MD Primary Care Provider [phone] Encounter Details Date Type Department Care Team Description 09/28/2023 Orders Only Medical Records [address] [place] [address] Kailash Zarate PA-C [address] [place] [address] Social History Tobacco Use Types Packs/Day Years [...] Name Priority Date/Time Associated Diagnosis Comments OUTSIDE MRI/MRA Routine 02/02/2023 documented in this encounter Results * OUTSIDE MRI/MRA (02/02/2023) Kailash Zarate PA-C RADIOLOGY documented in this encounter Visit Diagnoses Not on filedocumented in this encounter Care Teams Industrial Tech Instructor Relationship Specialty Start Date End Date Elsa Fontaine MD [address] [place] [address] [phone] PCP - General Internal Medicine 06/17/22 documented as of this encounter
--- OUTSIDE RECORDS SUMMARY | 2025-01-09 09:36 | XMS_ITS | Encounter Summary ---
Author Organization [facility] Address [address] [place] [address] Care Team Providers Care Poultry Hatchery Laborer Name Role Phone Fatmata Handy MD Primary Care Provider Un available Elsa Fontaine MD Primary Care Provider [phone] Encounter Details Date Type Department Care Team Description 07/17/2013 Transfer Records Medical Records [address] [place] [address] Abstract, Provider Social History Tobacco Use Types [...] filedocumented in this encounter Care Teams Poultry Hatchery Laborer Relationship Specialty Start Date End Date Fatmata Handy MD PCP - General 01/09/01 06/16/22 Elsa Fontaine MD [address] [place] [id number] PCP - General Internal Medicine 06/17/22 documented as of this encounter
--- OUTSIDE RECORDS SUMMARY | 2025-01-09 09:36 | XMS_ITS | Encounter Summary ---
Author Organization [facility] Address [address] [place] [address] Care Team Providers Care Calender Operator Helper Name Role Phone Fatmata Handy MD Primary Care Provider Un available Elsa Fontaine MD Primary Care Provider [phone] Encounter Details Date Type Department Care Team Description 01/03/2013 Hospital Medical Records [address] [place] [address] Damien Dowling MD Social History Tobacco Use [...] on filedocumented in this encounter Care Teams Calender Operator Helper Relationship Specialty Start Date End Date Fatmata Handy MD PCP - General 01/09/01 06/16/22 Elsa Fontaine MD [address] [place] [address] [phone] PCP - General Internal Medicine 06/17/22 documented as of this encounter
--- OUTSIDE RECORDS SUMMARY | 2025-01-09 09:36 | XMS_ITS | Encounter Summary ---
Author Organization [facility] Address [address] [place] [address] Care Team Providers Care Loan Associate Name Role Phone Fatmata Handy MD Primary Care Provider Un available Elsa Fontaine MD Primary Care Provider [phone] Encounter Details Date Type Department Care Team Description 12/27/2017 Pt. Non Urgent Medical Question OBN - [address] [address] Ghislaine Ramírez MD Social History Tobacco Use [...] Progress Notes * Gely Corral R.N. - 12/27/2017 9:01 AM EDTFrom: Marimar Shubham To: Ghislaine Ramírez MD Sent: 12/27/2017 8:54 AM EDT Subject: Still having bleeding Good morning, Sierra took my IUD out on WednesdayDecember 14. She prescribed the Depo shot which I haven't gotten yet but I do have the script. I'm still bleeding and cramping. I wasn't sure if that's just my body adjusting and I'm having an actual period now or what is going on. Some days it's light but still enough to wear a tampon and pad; changing every 2hrs. Other days like this morning I'm clotting and even having to change a pad every hour so far since 6am. I am noticing that I bleed more when I do morearound the house like laundry up and down stairs and go out like to do grocery shopping. I'm still having nausea all day every day; less of an appetite; & I'm still very tired. I had to take a nap mid day yesterday. So I'm not sure at this point what is normal and what isn't. Surgery is scheduled for February 08 to remove the fibroid. Thank you documented in this encounter Plan of Treatment Not on file documented as of this encounter Visit Diagnoses Not on filedocumented in this encounter Care Teams Loan Associate Relationship Specialty Start Date End Date Fatmata Handy MD PCP - General 01/09/01 06/16/22 Elsa Fontaine MD [address] [place] [id number] PCP - General Internal Medicine 06/17/22 documented as of this encounter
--- OUTSIDE RECORDS SUMMARY | 2025-01-09 09:36 | XMS_ITS | Encounter Summary ---
Author Organization [facility] Address [address] [place] [address] Care Team Providers Care Die Cutter Diamond Name Role Phone Fatmata Handy MD Primary Care Provider Un available Elsa Fontaine MD Primary Care Provider [phone] Encounter Details Date Type Department Care Team Description 11/03/2012 Hospital Medical Records [address] [place] [address] Robe Newell MD Social History Tobacco Use [...] on filedocumented in this encounter Care Teams Die Cutter Diamond Relationship Specialty Start Date End Date Fatmata Handy MD PCP - General 01/09/01 06/16/22 Elsa Fontaine MD [address] [place] [address] [phone] PCP - General Internal Medicine 06/17/22 documented as of this encounter
--- OUTSIDE RECORDS SUMMARY | 2025-01-09 09:36 | XMS_ITS | Encounter Summary ---
Author Organization [facility] Address [address] [place] [address] Care Team Providers Care Paperback Machine Operator Name Role Phone Fatmata Handy MD Primary Care Provider Un available Elsa Fontaine MD Primary Care Provider Encounter Details Date Type Department Care Team Description 07/28/2019 Pt. Non Urgent Medic al Question Medicine/Pediatrics - [address] [phone] Fatmata Handy MD Social History Tobacco Use [...] 12:15 PM EDTFrom: Marimar Jalloh To: Fatmata Handy MD Sent: 07/28/2019 12:11 PM EDT Subject: [...] on filedocumented in this encounter Care Teams Paperback Machine Operator Relationship Specialty Start Date End Date Fatmata Handy MD PCP - General 01/09/01 06/16/22 Elsa Fontaine MD [address] [place] [id number] PCP - General Internal Medicine 06/17/22 documented as of this encounter
--- OUTSIDE RECORDS SUMMARY | 2025-01-09 09:36 | XMS_ITS | Encounter Summary ---
Author Organization [facility] Address [address] [place] [address] Care Team Providers Care De Icer Installer Name Role Phone Fatmata Handy MD Primary Care Provider Un available Elsa Fontaine MD Primary Care Provider [phone] Encounter Details Date Type Department Care Team Description 10/25/2012 Hospital Medical Records [address] [place] [address] Flaquita Choi [address] [place] [address] Social History Tobacco Use Types Packs/Day Years [...] on filedocumented in this encounter Care Teams De Icer Installer Relationship Specialty Start Date End Date Fatmata Handy MD PCP - General 01/09/01 06/16/22 Elsa Fontaine MD [address] [place], [place] [phone] PCP - General Internal Medicine 06/17/22 documented as of this encounter
--- OUTSIDE RECORDS SUMMARY | 2025-01-09 09:36 | XMS_ITS | Encounter Summary ---
Author Organization [facility] Address [address] [place] [address] Care Team Providers Care Sole Conforming Machine Operator Name Role Phone Fatmata Handy MD Primary Care Provider Un available Elsa Fontaine MD Primary Care Provider [phone] Encounter Details Date Type Department Care Team Description 11/29/2012 Hospital Medical Records [address] Social History Tobacco Use Types Packs/Day [...] on filedocumented in this encounter Care Teams Sole Conforming Machine Operator Relationship Specialty Start Date End Date Fatmata Handy MD PCP - General 01/09/01 06/16/22 Elsa Fontaine MD [address] [place] [id number] PCP - General Internal Medicine 06/17/22 documented as of this encounter
--- OUTSIDE RECORDS SUMMARY | 2025-01-09 09:36 | XMS_ITS | Encounter Summary ---
Author Organization [facility] Address [address] [place] [address] Care Team Providers Care Spot Cleaner Name Role Phone Fatmata Handy MD Primary Care Provider Un available Elsa Fontaine MD Primary Care Provider [phone] Encounter Details Date Type Department Care Team Description 02/22/2015 Release of Information Medical Records [address] [place] [address] Abstract, Provider Social History Tobacco Use Types [...] on filedocumented in this encounter Care Teams Spot Cleaner Relationship Specialty Start Date End Date Fatmata Handy MD PCP - General 01/09/01 06/16/22 Elsa Fontaine MD [address] [place] [id number] PCP - General Internal Medicine 06/17/22 documented as of this encounter
--- OUTSIDE RECORDS SUMMARY | 2025-01-09 09:36 | XMS_ITS | Encounter Summary ---
Author Organization [facility] Address [address] [place] [address] Care Team Providers Care Tuft Machine Operator Name Role Phone Fatmata Handy MD Primary Care Provider Un available Elsa Fontaine MD Primary Care Provider [phone] Encounter Details Date Type Department Care Team Description 12/18/2019 Pt. Non Urgent Medical Question RN ADVICE - [address] [address] Fariba Celis CNM [address] [place] [address] Social History Tobacco Use Types Packs/Day Years [...] encounter Miscellaneous Notes * Telephone Encounter - Fariba Celis CNM - 12/18/2019 9:01 AM EDT Oh sorry, was thinking of someone else. GI consult, since press operator assistant cleared. I'll place an urgent order, if cant get an appt anytime soon should go to the er * Telephone Encounter - Fariba Celis CNM - 12/18/2019 8:47 AM EDT We can try a girdle and chiro services. The ultrasound and lab work is showing normal, but we can also follow up with a bpp to see If anything going on with placenta and infant first beforedoing girdle and chiro services. Can we add her to appt today? * Telephone Encounter - Gely Corral R.N. - 12/18/2019 8:31 AM EDTFrom: Marimar Jalloh To: Fariba Celis CNM Sent: 12/18/2019 7:59 AM EDT Subject: Question regarding COMPLETE BLOOD COUNT Good morning. I am still having the stabbing throbbing pain. Standing or sitting for too long brings on intense almost spasm like pain. I am just not sure what the next step could be. Thank you. documented in this encounter Plan of Treatment Not on file documented as of this encounter Visit Diagnoses Not on filedocumented in this encounter Care Teams Tuft Machine Operator Relationship Specialty Start Date End Date Fatmata Handy MD PCP - General 01/09/01 06/16/22 Elsa Fontaine MD [address] [place] [phone] PCP - General Internal Medicine 06/17/22 documented as of this encounter
--- OUTSIDE RECORDS SUMMARY | 2025-01-09 09:36 | XMS_ITS | Encounter Summary ---
Author Organization [facility] Address [address] [place] [address] Care Team Providers Care Nephrologist Name Role Phone Fatmata Handy MD Primary Care Provider Un available Elsa Fontaine MD Primary Care Provider [phone] Encounter Details Date Type Department Care Team Description 09/11/2016 Pt. Non Urgent Medical Question WAREHOUSE SELECTOR - [address] [address] Ghislaine Ramírez MD Social History Tobacco Use [...] of this encounter Progress Notes * Justine SmithPArely - 09/11/2016 4:03 PM ESTFrom: Marimar Granger To: Ghislaine Ramírez MD Sent: 09/11/2016 10:10 AM EST Subject: Still having symptoms Good morning Ghislaine. I am still experiencing pain and cramping, still on the lower right side. I have finished the antibiotic. Also, last night after intercourse I had a lot of bleeding. 2 clots; one the size of a nickel. I am still wearing a pad this morning; but I have not soaked thru it. It did not hurt during intercourse but the cramping began about a half hour later. I was not sure what the next step would be inthis situation. Thank you, Marimar documented in this encounter Plan of Treatment Not on file documented as of this encounter Visit Diagnoses Not on filedocumented in this encounter Care Teams Nephrologist Relationship Specialty Start Date End Date Fatmata Handy MD PCP - General 01/09/01 06/16/22 Elsa Fontaine MD [address] [place] [id number] PCP - General Internal Medicine 06/17/22 documented as of this encounter
--- OUTSIDE RECORDS SUMMARY | 2025-01-09 09:36 | XMS_ITS | Encounter Summary ---
Author Organization [facility] Address [address] [place] [address] Care Team Providers Care Crime Scene Technician Name Role Phone Fatmata Handy MD Primary Care Provider Un available Elsa Fontaine MD Primary Care Provider [phone] Encounter Details Date Type Department Care Team Description 11/17/2012 Hospital Medical Records [address] [place] [id number] Wellington Santoyo Social History Tobacco Use Types [...] on filedocumented in this encounter Care Teams Crime Scene Technician Relationship Specialty Start Date End Date Fatmata Handy MD PCP - General 01/09/01 06/16/22 Elsa Fontaine MD [address] [place] [phone] PCP - General Internal Medicine 06/17/22 documented as of this encounter
--- OUTSIDE RECORDS SUMMARY | 2025-01-09 09:36 | XMS_ITS | Encounter Summary ---
Author Organization [facility] Address [address] [place] [address] Care Team Providers Care Poly Operator Name Role Phone Fatmata Handy MD Primary Care Provider Un available Elsa Fontaine MD Primary Care Provider [phone] Encounter Details Date Type Department Care Team Description 02/09/2017 Release of Information Medical Records [address] [place] [phone] Abstract, Provider Social History Tobacco Use Types [...] on filedocumented in this encounter Care Teams Poly Operator Relationship Specialty Start Date End Date Fatmata Handy MD PCP - General 01/09/01 06/16/22 Elsa Fontaine MD [address] [place] [address] PCP - General Internal Medicine 06/17/22 documented as of this encounter
--- OUTSIDE RECORDS SUMMARY | 2025-01-09 09:36 | XMS_ITS | Encounter Summary ---
Author Organization [facility] Address [address] [place] [address] Care Team Providers Care Project Eng Name Role Phone Fatmata Handy MD Primary Care Provider Un available Elsa Fontaine MD Primary Care Provider [phone] Encounter Details Date Type Department Care Team Description 10/26/2012 Hospital Medical Records [address] [place] [address] Subhash Heath MD Social History Tobacco Use [...] on filedocumented in this encounter Care Teams Project Eng Relationship Specialty Start Date End Date Fatmata Handy MD PCP - General 01/09/01 06/16/22 Elsa Fontaine MD [address] [place] [address] PCP - General Internal Medicine 06/17/22 documented as of this encounter
--- OUTSIDE RECORDS SUMMARY | 2025-01-09 09:36 | XMS_ITS | Encounter Summary ---
Author Organization [facility] Address [address] [place] [address] Care Team Providers Care Supervisor Hanging And Trimming Name Role Phone Fatmata Handy MD Primary Care Provider Un available Elsa Fontaine MD Primary Care Provider [phone] Encounter Details Date Type Department Care Team Description 02/17/2018 Hospital Medical Records [address] [place] [address] Sierra Navarrete DO Social History Tobacco Use [...] filedocumented in this encounter Care Teams Supervisor Hanging And Trimming Relationship Specialty Start Date End Date Fatmata Handy MD PCP - General 01/09/01 06/16/22 Elsa Fontanie MD [address] [place] [address] PCP - General Internal Medicine 06/17/22 documented as of this encounter
--- OUTSIDE RECORDS SUMMARY | 2025-01-09 09:36 | XMS_ITS | Encounter Summary ---
Author Organization [facility] Address [address] [place] [address] Care Team Providers Care Plating Stripper Name Role Phone Fatmata Handy MD Primary Care Provider Un available Elsa Fontaine MD Primary Care Provider Encounter Details Date Type Department Care Team Description 07/11/2018 Pt. Non Urgent Medic al Question Medicine/Pediatrics - [address] [phone] Fatmata Handy MD Social History Tobacco Use [...] Evelyn SmithPSannaN. - 07/11/2018 3:20 PM EDTFrom: Marimarkerry Jalloh To: Fatmata Handy MD Sent: 07/11/2018 3:19 PM EDT Subject: Right ankle pain Good afternoon. I have been seen in the past for right ankle sprains by Dr Otto Newell in [place]. On May 29 I believe I sprained [...] on filedocumented in this encounter Care Teams Plating Stripper Relationship Specialty Start Date End Date Fatmata Handy MD PCP - General 01/09/01 06/16/22 Elsa Fontaine MD [address] [place] [id number] PCP - General Internal Medicine 06/17/22 documented as of this encounter
--- OUTSIDE RECORDS SUMMARY | 2025-01-09 09:36 | XMS_ITS | Encounter Summary ---
Author Organization [facility] Address [address] [place] [address] Care Team Providers Care Kick Press Operator Name Role Phone Fatmata Handy MD Primary Care Provider Un available Elsa Fontaine MD Primary Care Provider [phone] Encounter Details Date Type Department Care Team Description 07/12/2013 Hospital Medical Records [address] [place] [address] Shima Acosta MD Social History Tobacco Use Types Packs/Day [...] on filedocumented in this encounter Care Teams Kick Press Operator Relationship Specialty Start Date End Date Fatmata Handy MD PCP - General 01/09/01 06/16/22 Elsa Fontaine MD [address] [place] [address] PCP - General Internal Medicine 06/17/22 documented as of this encounter
--- OUTSIDE RECORDS SUMMARY | 2025-01-09 09:36 | XMS_ITS | Encounter Summary ---
Author Organization [facility] Address [address] [place] [address] Care Team Providers Care Biscuit Factory Worker Name Role Phone Fatmata Handy MD Primary Care Provider Un available Elsa Fontaine MD Primary Care Provider [phone] Encounter Details Date Type Department Care Team Description 11/17/2012 Hospital Medical Records [address] [place] [address] Gilberto Rodrigez MD Social History Tobacco Use Types Packs/Day [...] on filedocumented in this encounter Care Teams Biscuit Factory Worker Relationship Specialty Start Date End Date Fatmata Handy MD PCP - General 01/09/01 06/16/22 Elsa Fontaine MD [address] [place] [address] PCP - General Internal Medicine 06/17/22 documented as of this encounter
--- OUTSIDE RECORDS SUMMARY | 2025-01-09 09:36 | XMS_ITS | Encounter Summary ---
Author Organization [facility] Address [address] [place] [address] Care Team Providers Care Ginner Name Role Phone Fatmata Handy MD Primary Care Provider Un available Elsa Fontaine MD Primary Care Provider [phone] Encounter Details Date Type Department Care Team Description 02/20/2020 Telephone General Surgery - [address] [place] [phone] Duy Cullen MD [address] [place] [address] Social History Tobacco Use Types Packs/Day Years [...] on filedocumented in this encounter Care Teams Ginner Relationship Specialty Start Date End Date Fatmata Handy MD PCP - General 01/09/01 06/16/22 Elsa Fontaine MD [address] [place] [address] PCP - General Internal Medicine 06/17/22 documented as of this encounter
--- OUTSIDE RECORDS SUMMARY | 2025-01-09 09:36 | XMS_ITS | Encounter Summary ---
Author Organization [facility] Address [address] [place] [address] Care Team Providers Care Crate Icer Name Role Phone Fatmata Handy MD Primary Care Provider Un available Elsa Fontaine MD Primary Care Provider [phone] Encounter Details Date Type Department Care Team Description 01/24/2019 Pt. Non Urgent Medical Question General Surgery - [address] [place] [phone] Duy Cullen MD [address] [place] [phone] Social History Tobacco Use Types Packs/Day Years [...] to set up my appointment with my MEDICARE COORDINATOR as well with pertinent information. So 1) [...] on filedocumented in this encounter Care Teams Crate Icer Relationship Specialty Start Date End Date Fatmata Handy MD PCP - General 01/09/01 06/16/22 Elsa Fontaine MD [address] [place] [address] PCP - General Internal Medicine 06/17/22 documented as of this encounter
== END 2025-01-09 09:45 | disposition home or self-care (01) ==
LOC: HO.HPSW 08:56
PROVIDERS: PCP Physician Assistant Medical; Visit Provider Nurse Practitioner Family
DX: J45.909 Unspecified asthma, uncomplicated (principal); Z91.09 Other allergy status, other than to drugs and biological substances
CPT/HCPCS: 99214

== ENCOUNTER → 2025-01-09 08:55 | Outpatient (BNVA) | payer OTHER, SELFPAY | PROVIDERS: PCP Physician Assistant Medical; Visit Provider Nurse Practitioner Family ==

== ENCOUNTER 2025-01-18 09:04 | Outpatient (AMB) | payer OTHER, SELFPAY ==
--- NOTE | 2025-01-18 09:32 | A.OFFPC_ITS ---
Vital Signs 01/18/25 09:40 Height 5 ft 1 in Weight 170 lb 2 oz BMI 32.1 BP 108/62 Blood Pressure Location Rt brachial Position Sitting Pulse 73 Pulse Source Pulse Oximeter Pulse Oximetry (%) 95 Oxygen Delivery Method Room Air Intake Visit Reasons: lump on chest Intake Note: Marimar presents in the office today for a follow up to a lump on her chest. Drawing In Machine Tender Helper Required: No Allergies morphine Allergy (Severe, Verified 01/18/25 09:34) Hives polyethylene glycol [From Golytely] Allergy (Severe, Verified 01/18/25 09:34) Hives polyethylene glycol 3350 [From Golytely] Allergy (Severe, Verified 01/18/25 09:34) Hives potassium chloride [From Golytely] Allergy (Severe, Verified 01/18/25 09:34) Hives sodium [From Golytely] Allergy (Severe, Verified 01/18/25 09:34) Hives sodium bicarbonate [From Golytely] Allergy (Severe, Verified 01/18/25 09:34) Hives sodium chloride [From Golytely] Allergy (Severe, Verified 01/18/25 09:34) Hives sodium sulfate [From Golytely] Allergy (Severe, Verified 01/18/25 09:34) Hives Sulfa (Sulfonamide Antibiotics) Allergy (Severe, Verified 01/18/25 09:34) Hives cat dander Allergy (Verified 01/18/25 09:34) running nose sneezing Tobacco use date assessed: 01/18/25 Dental Screening Dental Screen Date: 01/18/25 Did you have a dental visit in the last 12 months?: Yes Did you have a dental problem in the last 6 months where you did not have access to dental care?: No Was dental information given to patient?: Patient has dentist HPI HPI Comments History of Present Illness Details This is a 44-year-old female with a past medical history of asthma, GERD environmental allergies presenting for evaluation of a breast lump. The breast lump was initially identified as a palpable mass at 1 o'clock position, 12 cm from the nipple, during a breast ultrasound and diagnostic mammogram on September 25, 2024, which indicated a hypoechoic oval solid mass versus a lymph node. It was suspected to be a probable benign finding, and a repeat imaging with ultrasound was recommended in six months. The patient has experienced pain and throbbing sensations associated with the lump, especially during coughing or movement and sometimes at rest. Her history includes a torn right rotator cuff, not yet surgically treated, and prior cervical disc surgery with hardware placement around [id number]. The patient saw a breast specialist at [facility] who agreed with the imaging findings and follow up imaging in 6 months. Since that time she had a follow up ultrasound, and the transducer was being caught on the lump, but it did not show up on the imaging. Patient is concerned that it was not able to be identified, and that she has not had advanced imaging or biopsy. Her paternal aunt had breast cancer. Patient has never required breast biopsy. Denies nipple discharge. Denies trauma to the area. ROS: Constitutional: No fevers, chills, unexplained weight loss or night sweats. Skin: No rash Physical exam: Constitutional: Alert, in no distress. Appears a little tired. Neck: Supple, Full range of motion. No lymphadenopathy. Respiratory: Clear to auscultation. Breast: There is a palpable, nontender 1.5 cm lump at the area of concern described in the HPI with no erythema or discoloration. No nipple discharge or inversion. No axillary adenopathy bilaterally. Cardiovascular: S1 S2 regular. No murmurs. [facility] Medical History (Updated 12/04/24 @ 13:52 by PATO Dickerson) URI (upper respiratory infection) Routine physical examination GERD (gastroesophageal reflux disease) Hypertension Anxiety Bacterial infection Fibroids Surgical History History of surgery History of neck surgery History of partial hysterectomy Hx of cholecystectomy History of appendectomy Hx of breast reduction, elective [place] teeth extracted Family History (Updated 01/18/25 @ 09:37 by Gladis Lopez MA) Mother Mental health disorder Substance abuse Cancer Thyroid disorder Hypertension Diabetes Asthma High cholesterol FHx: mental illness Bipolar 1 disorder Father Substance abuse Hypertension High cholesterol Social History (Updated 01/18/25 @ 09:36 by Gladis Lopez MA) Household Members: Significant Other and Children Both parents involved: No Caregiver staying overnight: No Housing: House Are you a primary health care sanitary technician to a significant other at home: Yes Do you presently have visiting nurse or other home services: No 75 years or older and lives alone: No Alcohol intake: former Patient Tobacco Use Status: Never used Tobacco e-Cigarette/Vaping Use: Never Used Second Hand Smoke Exposure: Yes Use of substances other than those prescribed or required for medical reasons: No service: No Current occupational status: employed Current occupation: medical technicians Cognitive needs: No Hearing needs: No Vision needs: Yes (wear glasses) Questionnaire PHQ-9 Over the last 2 weeks, how often have you been bothered by any of the following problems? 1. Little interest or pleasure in doing things: not at all 2. Feeling down, depressed, or hopeless: several days 3. Trouble falling or staying asleep, or sleeping too much: not at all 4. Feeling tired or having little energy: several days 5. Poor appetite or overeating: not at all 6. Feeling bad about yourself - or that you are a failure or have let yourself or your family down: not at all 7. Trouble concentrating on things, such as reading the newspaper or watching television: not at all 8. Moving or speaking so slowly that other people could have noticed. Or the opposite - being so fidgety or restless that you have been moving around a lot more than usual: not at all 9. Thoughts that you would be better off or of hurting yourself in some way: not at all Total score: 2 Depression Screening Interpretation: Negative Depression Screening Done: Yes 85547 - PHQ-9 Billing: Patient declined-do not bill Source: Developed by Drs. Jay Chris, Shana Carmona, Steffen Rich and colleagues, with an educational debbie from [employer]. Thrive Questionnaire Date Thrive assessed: 01/18/25 I am a: Patient What is your living situation today?: I have a steady place to live Within the past 12 months, did the food you bought not last and you didn't have the money to get more?: Never true Within the past 12 months, did you worry whether your food would run out before you got money to buy more?: Sometimes True Do you have trouble paying for medicines?: No Do you have trouble getting transportation to medical appointments?: No Do you have trouble paying your heating and electricity bill?: Yes Do you have trouble taking care of your child, family member or friend?: No Do you have trouble with day-to-day activities such as bathing, preparing meals, shopping, managing finances, etc.?: No Are you currently unemployed and looking for a job?: No Are you interested in more education?: No Please select the resources that you would like help with: Utilities Currently or been in a relationship where the following occur: No concerns reported THRIVE Score: 2 ELENA-7 AMB Questionnaire ELENA-7 Date ELENA - 7 assessed: 01/18/25 Feeling nervous, anxious, or on edge: 1 = Several days Not being able to stop or control worryin = Several days Worrying too much about different things: 1 = Several days Trouble relaxin = Not at all Being so restless that it is hard to sit still: 0 = Not at all Becoming easily annoyed or irritable: 0 = Not at all Feeling afraid as if something awful might happen: 0 = Not at all Total ELENA-7 score (0-4 normal; 5-9 mild; 10-14 moderate; 15-21 severe): 3 Source: Developed by Drs. Jay Chris, Shana Carmona, Steffen Rich and colleagues, with an educational debbie from [employer]. ELENA-7 Assessment Billing ELENA-7 Assessment Tool: ELENA-7 Assessment 18205 ACT Questionnaire In the past 4 weeks, how much of the time did your asthma keep you from getting as much done at work, school or at home?: None of the time During the past 4 weeks, how often have you had shortness of breath?: 1-2 times a week During the past 4 weeks, how often did your asthma symptoms wake you up at night or earlier than usual in the morning?: Not at all During the past 4 weeks, how often have you had to use your rescue inhaler or nebulizer medication?: 1-2 times a week How would you rate your asthma control during the past 4 weeks?: Well controlled ACT Interpretation: Negative Score: 20 Physical exam (Primary Care) Vital Signs: Last Vital Signs Pulse 73 01/18/25 09:40 BP 108/62 01/18/25 09:40 Pulse Ox 95 01/18/25 09:40 Oxygen Delivery Method Room Air 01/18/25 09:40 BMI result Body Mass Index 32.1 Tobacco/Smoking Status: Tobacco use Status Tobacco use date assessed 01/18/25 01/18/25 09:43 Patient Tobacco Use Status Never used Tobacco 01/18/25 09:43 e-Cigarette/Vaping Use Never Used 01/18/25 09:43 PHQ-9: PHQ-9 Score PHQ-9: Total score 2 01/18/25 09:50 Depression Screening Interpretation: Negative Thrive Assessment: Date of Thrive Assessment Date Thrive assessed 01/18/25 01/18/25 09:43 Currently or been in a relationship where the following occur: No concerns reported Coding Level of Care Code Est Pt Level 4 (44287) Complex EM visit Add On G2211 Diagnoses Mass of upper inner quadrant of right breast N63.12 Breast mass location: upper inner quadrant Additional Codes Asthma Control Questionnaire - ACT Interpretation: Negative ([id number]) ELENA-7 Assessment Billing - ELENA-7 Assessment Tool: ELENA-7 Assessment 37672 ([id number]) Assessment & Plan Assessment & Plan (1) Lump of right breast: Code(s): N63.10 - Unspecified lump in the right breast, unspecified quadrant Category: Medical Qualifiers: Breast mass location: upper inner quadrant Qualified Code(s): N63.12 - Unspecified lump in the right breast, upper inner quadrant Plan: Persistent, palpable breast lump previously detected on ultrasound. Not able to be characterized on most recent ultrasound. MRI ordered to rule out malignancy. Plan Follow up based on results. Orders: Orders MR breast RT wo/w con Today N63.12 - Unspecified lump in the right breast, upper inner quadrant
--- OUTSIDE RECORDS SUMMARY | 2025-01-18 09:38 | XMS_ITS | Clinical Summary ---
Author Organization [facility] Address [address] [place] [address] Care Team Providers Care Landscape Painter Name Role Phone Elsa Fontaine MD Primary Care Provider [phone] Allergies Active Allergy Reactions Criticality Noted Date [...] Name Administration Dates Next Due Hepatitis B (Ijcosoy-V-Wxpom , Recombivax HB-Adult) 19yo and older 06/05/2007,01/03/2007,02/14/2004,07/23,08/16/1997,07/23/1997 [...] WISDOM TEETH EXTRACTION BREAST REDUCTION 12/2009 PROCEDURE: NC BREAST REDUCTION OTHER SURGICAL HISTORY 1291013 PROCEDURE: NC LAPS FULG/EXC OVARY VISCERA/PERITONEAL SURFACE; COMMENT: endometriosis - Dr Hugh Newell APPENDECTOMY [id number] PROCEDURE: HISTORICAL APPENDECTOMY CHOLECYSTECTOMY 01/2014 PROCEDURE: HISTORICAL CHOLECYSTECTOMY CERVICAL BIOPSY W/ LOOP ELECTRODE EXCISION 05/2015 PROCEDURE: NC CONIZATION CERVIX W/WO D&C RPR ELTRD EXC; COMMENT: wiliam 2-3, +endo margin NECK SURGERY 03/03/2017 PROCEDURE: HISTORICAL NECK SURGERY; COMMENT: c5-c6,c6-c7 anterior cervical disckectomy with allograft fusion c5-c6, c-6-c7 and anterior cervical plating using a Zevo plate Samantha Olivier [facility] ABDOMINAL SURGERY 02/17/2018 PROCEDURE: NC UNLISTED PROCEDURE ABDOMEN PERITONEUM & OMENTUM; COMMENT: Myomectomy, menorrhagia submucosal/intramural fibroid MYOMECTOMY 02/2018 PROCEDURE: NC LAPS MYOMECTOMY EXC 1-4 MYOMAS 250 GM/< [...] age to complete this topic Meningococcal B Vaccine Aged Out No l onger eligible based on patient's age to complete [...] Results * Annual BMP Blood Test (05/06/2023) Annual BMP Blood Test Abstracted [facility] Provider HEALTH MAINTENANCE Final Result * (ABNORMAL) Lipid panel (03/03/2018) [facility] LDL/HDL Ratio 3 0 - 4 Triglycerides 89 0 - 150 mg/dL Cholesterol 233(A) 0 - 200 mg/dL HDL 67 >=40 mg/dL LDL Cholesterol 149(A) 0 - 100 mg/dL Blood Venous blood specimen / Unknown [facility] Provider LAB BLOOD ORDERABLES Lucinda l Result * Cervical Cancer Screening: HPV (04/30/2017) Pathologist [facility] Cervical Cancer Screening: HPV No interpretation , abstracted [facility] Provider HEALTH MAINTENANCE Final Result from Last 3 Months or Most Recently Relevant to Health Maintenance Advance Directives Documents on File Type Date Recorded Patient Poultry Culler Expl anation Health Care Decision (hx) 12/30/2017 AD CHOW DIRECTIVE Health Care Decision (hx) 12/30/2017 AD CHOW DIRECTIVE Health Care Decision (hx) 12/30/2017 AD CHOW DIRECTIVE Health Care Decision (hx) 12/30/2017 AD CHOW DIRECTIVE Health Care Decision (hx) 12/30/2017 AD CHOW DIRECTIVE Care Teams Landscape Painter Relationship Specialty Start Date End Date Elsa Fontaine MD PCP - General Internal Medicine 06/17/22
[2025-01-18 09:40] VITALS: BP 108/62; PULSE 73; O2SAT 95; BMI 32.1
== END 2025-01-18 12:53 | disposition home or self-care (01) ==
LOC: HO.HMCFM 09:05
PROVIDERS: PCP Physician Assistant Medical; Visit Provider Physician Assistant Medical
DX: N63.12 Unspecified lump in the right breast, upper inner quadrant (principal)

== ENCOUNTER → 2025-01-18 09:04 | Outpatient (BNVA) | payer OTHER, SELFPAY | PROVIDERS: PCP Physician Assistant Medical; Visit Provider Physician Assistant Medical | DX: N63.12 Unspecified lump in the right breast, upper inner quadrant (principal) | CPT/HCPCS: 96127; 96160 ==

== ENCOUNTER → 2025-04-05 13:30 | Outpatient (BNV) | payer OTHER, SELFPAY | PROVIDERS: PCP Internal Medicine; Visit Provider Internal Medicine | DX: N64.89 Other specified disorders of breast (principal) | CPT/HCPCS: 76642 ==

== ENCOUNTER 2025-04-05 13:31 | Outpatient (REF) | payer OTHER, SELFPAY ==
--- NOTE | ~2025-04-05 | US_ITS ---
EXAMINATION: US DIAGNOSTIC ULTRASOUND BREAST, RIGHT CLINICAL INFORMATION: 6 month follow-up for solid mass versus patch of normal fibroglandular breast tissue which correlated with a palpable lump felt by the patient.. COMPARISON: Comparison is made with relevant prior imaging. TECHNIQUE: Ultrasound of the breast is performed with real-time vuong scale imaging and color Doppler. FINDINGS: Targeted color Doppler ultrasound scanning at 1:00 12 cm from the nipple again demonstrates a hypoechoic patch of normal fibroglandular breast tissue. Versus hypoechoic oval parallel circumscribed solid mass measuring 10 x 3 x 6 mm previously measuring 9 x 3 x 6 mm. This area is better follow-up when the patient is sitting up. Results are discussed with the patient at time of visit. US/US breast RT limited mamm only IMPRESSION: Hypoechoic oval circumscribed solid mass versus normal patch of fibronodular breast tissue in the right breast at 1:00 12 cm from the nipple. Recommend 6 month follow-up for further evaluation of stability. ASSESSMENT: BI-RADS 3: Probably Benign RECOMMENDATION: Diagnostic ultrasound in 6 months. This patient's information was entered into a reminder system with a target due date for their next mammogram. Electronically signed by: Cyndi Crenshaw DO 04/05/2025 02:07 PM EDT
--- OUTSIDE RECORDS SUMMARY | 2025-04-05 16:20 | XMS_ITS | Encounter Summary ---
Author Organization [facility] Address [address] [place] [address] Care Team Providers Care School Resource Officer Name Role Phone Fatmata Handy MD Primary Care Provider Un available Elsa Fontaine MD Primary Care Provider [phone] Encounter Details Date Type Department Care Team Description 06/30/2010 Night Triage Doc Medical Records [address] [place] [id number] Abstract, Provider Social History Tobacco Use Types [...] filedocumented in this encounter Care Teams School Resource Officer Relationship Specialty Start Date End Date Fatmata Handy MD PCP - General 01/09/01 06/16/22 Elsa Fontaine MD [address] [place] [address] [id number] PCP - General Internal Medicine 06/17/22 documented as of this encounter
== END 2025-04-05 13:32 | disposition home or self-care (01) ==
LOC: HO.MAMMO 13:31
PROVIDERS: PCP Internal Medicine; Visit Provider Physician Assistant Medical
DX: N63.12 Unspecified lump in the right breast, upper inner quadrant (principal)
CPT/HCPCS: 76642